=== PATIENT | female | born 1960 | race Caucasian/White ===

== ENCOUNTER → 2017-06-24 | Outpatient (CLI) | payer BC ==
[~2017-06-24] MED LIST: ESCI10TA17 PO; LEVO50TA6 PO; NIAC500T11 PO; SIMV20TA5 PO; VALA500T60 PO
--- NOTE | 2017-06-25 07:54 | MAMMOGRAPHY REPORT ---
BILATERAL DIGITAL SCREENING MAMMOGRAM TOMOSYNTHESIS WITH CAD: 06/24/2017 CLINICAL HISTORY: Routine screening. Patient has no complaints. TECHNIQUE: Breast tomosynthesis in addition to standard 2D mammography was performed. Current study was also evaluated with a Computer Aided Detection (CAD) system. COMPARISON: Comparison is made to exams dated: 06/21/2016 mammogram, 05/25/2015 mammogram, 05/18/2014 m ammogram, 05/08/2013 mammogram, 10/09/2012 mammogram, and 05/09/2012 ultrasound - [facility] enter. BREAST COMPOSITION: The tissue of both breasts is almost entirely fatty. FINDINGS: The parenchymal pattern is unchanged. No developing mass, architectural distortion or clus ter of suspicious microcalcifications is seen in either breast. IMPRESSION: ACR BI-RADS CATEGORY 2: BENIGN There is no mammographic evidence of malignancy. A 1 year screening mammogram is recommended. The pa tient will receive written notification of the results. Approximately 10% of breast cancers are not detected with mammography. A negative mammographic report should not delay biopsy if a clinically suggestive mass is present. Annita Meza M.D. ay/:06/24/2017 16:58:02 Piping Engineer: Lydia PAGE(Kylie)(Liane), [facility] letter sent: Normal 1/2 BI-RADS Code: ACR BI-RADS Category 2: Benign
== END | disposition home or self-care (01) ==
LOC: C.MAMM 07:42
PROVIDERS: ATTEND Family Medicine
DX: Z12.31 Encounter for screening mammogram for malignant neoplasm of breast (principal)

== ENCOUNTER → 2017-10-21 | Outpatient (CLI) | payer OTHER | END | disposition home or self-care (01) | LOC: C.PATHSPEC 16:34 | PROVIDERS: ATTEND Dermatology | DX: L82.1 Other seborrheic keratosis (principal) ==

== ENCOUNTER → 2018-02-03 | Outpatient (CLI) | payer OTHER ==
--- NOTE | 2018-02-03 15:45 | DIAGNOSTIC IMAGING REPORT ---
L-SPINE MIN 4 VIEWS ROUTINE CLINICAL HISTORY: 57 years-old Female presenting with LIFTING INJURY. TECHNIQUE: Frontal, bilateral oblique, lateral, and coned in lateral views lumbar spine were obtained. COMPARISON: None. FINDINGS: No scoliosis. Normal lumbar lordosis. Vertebral bodies maintain normal height and alignment. Intervertebral disc heights preserved. Minimal degenerative change. No osseous neural foraminal narrowing. No compression deformity or subluxation. No pars defect. Moderate stool burden. IMPRESSION: 1. No acute osseous injury of the lumbar spine. 2. Minimal degenerative changes of the lumbar spine. No radiographic evidence of osseous neural foraminal narrowing. Electronically signed by: Jas Trevino M.D. 02/03/2018 3:44 PM Dictated Date/Time: 02/03/2018 3:42 PM
== END | disposition home or self-care (01) ==
LOC: C.RAD1850 15:12
PROVIDERS: ATTEND Nurse Practitioner Adult Health
DX: M54.5 Low back pain (principal); X50.0XXA Overexertion from strenuous movement or load, initial encounter; Y93.B3 Activity, free weights

== ENCOUNTER 2024-02-09 20:52 | Inpatient (IN) ==
--- OUTSIDE RECORDS SUMMARY | 2024-02-09 20:57 | External Medical Summary | Summary of Care ---
Author Name Unknown Organization [facility] Address [address] [place] [address] Phone [phone] Care Team Providers Care Private Client Advisor Name Role Phone Amie Barba Primary Care Provider Reason for Visit * Reason Comments Follow Up Right knee Encounter Details Date Type Department Care Team (Late st Contact Info) Description 11/21/2023 9:00 AM EST Office Visit Orthopaedics [facility] [address] [facility] [place] [address] Tenzin Medeiros PA-C [address] [place] [address] [place] [address] Primary osteoarthritis of right knee* Allergies No known active allergiesdocumented as of this encounter (statuses as of 11/21/2023) Medications Medication Sig Dispensed Refills Start Date End Date Status NIACIN 500 MG PO TABSIndications:Mixed dyslipidemia One pill by mouth two times a day 180 Tab 3 1 Active OMEGA-3 FISH OIL 1000 MG PO CAPSIndications:Dyslipide priscila, goal to be determined Take one capsule by mouth twice a day 60 Cap 5 3 Active Multiple Vitamins-Calcium (ONE-A-DAY WOMENS FORMULA) Tablet Take 1 Tablet by mouth in the morning. 0 Active buPROPion HCl ER (XL) 150 MG Oral Tablet Extended Release 24 Hour (Wellbutrin XL)Indications:EDSON (generalized anxiety disorder) Take 1 Tablet by mouth in the morning. 90 Tablet 3 3 Active Premarin 0.625 MG/GM Vaginal Cream (Estrogens Conjugated) Administer into the vagina at bedtime. As directed. 42.5 g 5 3 Active Ibuprofen 600 MG Oral Tablet (Motrin) take 1 tablet by mouth three times a day 30 Tablet 1 3 Active valACYclovir HCl 500 MG Oral Tablet (Valtrex)Indications:HSV infection Take 1 Tablet by mouth in the morning. 90 Tablet 3 3 Active Levothyroxine Sodium 88 MCG Oral Tablet (Levoxyl)Indications:Acqu ired hypothyroidism TAKE 1 TABLET DAILY SIX DAYS A WEEK AND TAKE 2 TABLETS DAILY ONE DAY A WEEK AT LEAST 30 MINUTES PRIOR TO BREAKFAST OR OTHER MEDICATIONS 96 Tablet 3 4 Active Escitalopram Oxalate 10 MG Oral Tablet (Lexapro)Indications:EDSON (generalized anxiety disorder) TAKE 1 TABLET IN THE MORNING 90 Tablet 3 4 Active rOPINIRole HCl 0.25 MG Oral Tablet (Requip)Indications:Restl ess legs syndrome (RLS) TAKE 1 TO 2 TABLETS AT BEDTIME FOR RESTLESS LEG SYNDROME, PLMD 180 Tablet 3 4 Active Atorvastatin Calcium 40 MG Oral Tablet (Lipitor)Indications:Pure hypercholesterolemia TAKE 1 TABLET IN THE MORNING 90 Tablet 3 4 Active documented as of this encounter (statuses as of 11/21/2023) Active Problems Problem Noted Date Diagnosed Date Primary osteoarthritis of fi rst carpometacarpal joint of left hand 08/28/2023 EDSON (generalized anxiety disorder) 06/26/2021 Pure hypercholesterolemia 06/26/2021 Ruptured Bakers cyst 06/23/2019 Lumbar disc herniation 06/23/2019 S/P cervical spinal fusion 06/16/2018 Acquired hypothyroidism 06/07/2017 Chronic rhinitis 04/11/2017 EMILIE (obstructive sleep apnea) 08/17/2016 High triglycerides 04/21/2009 Esophageal reflux 09/07/2008 Migraine 01/16/2005 documented as of this encounter (statuses as of 11/21/2023) Resolved Problems Problem Noted Date Diagnosed Date Resolved Date Viral pharyngitis 04/11/2017 04/09/2018 Dyslipidemia, goal to be determined 09/15/2009 10/13/2013 Overview: Per Lipid Taxonomy. HYPOTHYROIDISM NOS 07/14/2009 6 Mixed dyslipidemia 04/21/2009 9 Overview: Per Lipid Taxonomy. ADVANCE DIRECTIVE INFORMATION 08/19/2006 06/16/2018 Overview: No, Advance Directive brochure given to patient at prior appointment. documented as of this encounter (statuses as of 11/21/2023) Immunizations Name Administration Dates Next Due COVID-19 mRNA, LNP-s, No Pre serve, 2-Dose Series (Moderna) 08/20/2021,01/11/2021,12/14/2020 Covid-19, Mrna, Lnp-s, Pf, B ivalent, 30 Mcg, IM, 12 yrs and above (Pfizer) 08/18/2022 H1N1 2009 Influenza, IM 09/13/2009 PPD 05/17/2010 Seasonal Influenza, PF, 6 M & above, IM , (FluLaval or Fluzone) 06/24/2020,07/22/2019,06/16/2018 Seasonal Influenza, Quadriva lent, No Preserve, IM 07/14/2016 Seasonal Influenza, Split, I IV3, With Preserve, Inj 07/24/2014,10/15/2013,07/09/2012,2010,2010,07/07/2009,09/07/2008 TD, Preservative Free 07/22/2019 TDAP (age 11 and older)(Adacel) 09/07/2008 documented as of this encounter Social History Tobacco Use Types Packs/Day Years Used Date Smoking Tobacco: Never Smokeless Tobacco: Never Alcohol Use Standard Drinks/Week Comments Yes 0 (1 standard drink = 0.6 oz pur e alcohol) Rare PHQ-2 Answer Date Recorded PHQ Adult Total Score 0 07/02/2022 Sex and Gender Information Value Date Recorded Sex Assigned at Not on file Gender Identity Not on file Sexual Orientation Not on file Job Start Date Occupation Industry Not on file Not on file Not on file documented as of this encounter Progress Notes * Tenzin Medeiros PA-C - 11/21/2023 9:39 AM EST ORTHOPAEDIC SURGERY - Clinic Note SUBJECTIVE: Rosalie Newsome is a 63 year old female. Chief Complaint Patient presents with Follow Up Right knee HPI: Rosalie is a very pleasant 63-year-old female who presents to the clinic today for 2 month follow-up roughly 2 months removed from completion of viscosupplementation series for the right knee for treatment of her primary osteoarthritis. Today she reports that she has no pain today in the rightknee, but states that overall she has not seen significant relief following her Euflexxa series. She reports that her pain is consistent with her previous, and that she continues to feel crunching and clicking in her knee with motion. She reports that pain is exacerbated by raising from a sitting position and traverse all of stairs. Other orthopedic complaints at this time. Review of Systems: Constitutional ROS: No fevers, sweats, or chills Cardiovascular ROS: No chest pain Respiratory ROS: No breathing difficulty Gastrointestinal ROS: No abdominal pain Musculoskeletal/Extremities ROS: No pain today Neurologic ROS: No numbness or tingling Review of patient's allergies indicates: No Known Allergies Current Outpatient Medications Medication Sig Dispense Refill NIACIN 500 MG PO TABS One pill by mouth two times a day 180 Tab 3 OMEGA-3 FISH OIL 1000 MG PO CAPS Take one capsule by mouth twice a day 60 Cap 5 Multiple Vitamins-Calcium (ONE-A-DAY WOMENS FORMULA) Tablet Take 1 Tablet by mouth in the morning. buPROPion HCl ER (XL) 150 MG Oral Tablet Extended Release 24 Hour (Wellbutrin XL) Take 1 Tablet by mouth in the morning. 90 Tablet 3 Premarin 0.625 MG/GM Vaginal Cream (Estrogens Conjugated) Administer into the vagina at bedtime. Asdirected. 42.5 g 5 Ibuprofen 600 MG Oral Tablet (Motrin) take 1 tablet by mouth three times a day 30 Tablet 1 valACYclovir HCl 500 MG Oral Tablet (Valtrex) Take 1 Tablet by mouth in the morning. 90 Tablet 3 Levothyroxine Sodium 88 MCG Oral Tablet (Levoxyl) TAKE 1 TABLET DAILY SIX DAYS A WEEK AND TAKE 2 TABLETS DAILY ONE DAY A WEEK AT LEAST 30 MINUTES PRIOR TO BREAKFAST OR OTHER MEDICATIONS 96 Tablet 3 Escitalopram Oxalate 10 MG Oral Tablet (Lexapro) TAKE 1 TABLET IN THE MORNING 90 Tablet 3 rOPINIRole HCl 0.25 MG Oral Tablet (Requip) TAKE 1 TO 2 TABLETS AT BEDTIME FOR RESTLESS LEG SYNDROME, PLMD 180 Tablet 3 Atorvastatin Calcium 40 MG Oral Tablet (Lipitor) TAKE 1 TABLET IN THE MORNING 90 Tablet 3 No current facility-administered medications for this visit. Patient Active Problem List Diagnosis Code Migraine G43.909 Esophageal reflux K21.9 High triglycerides E78.1 EMILIE (obstructive sleep apnea) G47.33 Chronic rhinitis J31.0 Acquired hypothyroidism E03.9 S/P cervical spinal fusion Z98.1 Ruptured Bakers cyst M66.0 Lumbar disc herniation M51.26 EDSON (generalized anxiety disorder) F41.1 Pure hypercholesterolemia E78.00 Primary osteoarthritis of first carpometacarpal joint of left hand M18.12 Past Medical History: Diagnosis Date Esophageal reflux 09/07/2008 mild esophageal Hypothyroidism Past Surgical History: Procedure Laterality Date CARPAL TUNNEL SURGERY Right COLONOSCOPY, DIAGNOSTIC (RECTUM) 02/26/2019 biopsies show hyperplastic polyps/recall 10 years/COLONOSCOPY FLEXIBLE PROXIMAL DIAGNOSTIC performed by Linda Orellana MD at [facility] EGD, FLEXIBLE, W/BIOPSY 09/20/2008 mild esophageal reflux INFORMATION tendon surgery left foot. KNEE ARTHROSCOPY/MENISCECTOMY Left 06/14/2020 MAMMOGRAM - 1 BREAST 04/24/2007 birad 2 right MAMMOGRAM - BILATERAL 10/22/2006 5mm nodule r 6 o'clock 6 mo f/u 04/22/07 OTHER 1992 Cervical fusion for bulging C5, Done in [facility] RMV LSN SCALP/NCK/EXT 3.1-4.0 N/A 05/11/2020 [facility]- precancer TENDON SHEATH INCISION, FINGER Right trigger finger Social History Tobacco Use Smoking status: Never Smokeless tobacco: Never Vaping Use Vaping Use: Never used Substance Use Topics Alcohol use: Yes Comment: Rare Drug use: No Family history: Noncontributory OBJECTIVE: Diagnostic Testing: None today Vital Signs: LMP 09/19/2010 Physical Exam: General: Alert and oriented x3 female, in no acute distress, appears currently stated age, appears well nourished, and converses appropriately. Psych: Mood and affect pleasant, cooperative, and without any positive/concerning findings. HEENT: Head is atraumatic, normocephalic, eyes are equal and round and without appreciated scleral injection, oral and nasal cavities are patent without obvious exudate. Respiratory: Patient's breathing is unlabored. Skin: Generally pink, warm and dry without gross visible diaphoresis, rash, erythema, ecchymosis, breakdown, or visible trauma. Musculoskeletal: Examination of the right knee reveals no deformity, erythema, ecchymosis, soft tissue swelling, or palpable effusion. There is tenderness to palpation over the lateral and medial patellofemoral articulations as well as the medial joint line to a lesser degree. She is able to demonstrate a straight leg raise and range the knee fully with noted patellofemoral crepitus. Collateral stability is intact. Calf is supple and nontender. She is distally neurovascularly intact with appropriate sensation to light touch, palpable pulses, and brisk cap refill. Distal motor function is intact include strong great toe dorsiflexion. Gait assessment is nonantalgic. ASSESSMENT: There are no diagnoses linked to this encounter. PLAN: Patient's right knee pain, previously employed treatments, failure there of, treatment options moving forward, exam, and recommendations were discussed with her in the office today. We did have a lengthy discussion in the office today with regard to Iovera nerve ablation and the potential benefit for patient given her previous failures of other conservative measures to include formal physical therapy, steroid injection, and viscosupplementation. At this point, she is possibly interested in pursuing Iovera, but will continue to monitor symptoms over the course of the next month for improvementand contact the office for Iovera scheduling should she decide to proceed. Patient was certainly urged to contact clinic in the interim with any questions, concerns, or worsening of symptoms. Patientis comfortable with the plan, and all questions were answered. This chart was completed in part utilizing [employer] Speech Voice Recognition Software. Grammatical errors, random word insertions, pronoun errors, and incomplete sentences are an occasional consequence of this system due to software limitations, ambient noise, and hardware issues. Any formal questions or concerns about the content, text, or information contained within the body of this dictation should be directly addressed to the provider for clarification. Tenzin Medeiros PA-C 11/21/2023 9:39 AM documented in this encounter Nursing Notes * Janice Wyatt, RN - 11/21/2023 9:13 AM EST Pt presents today for f/u right knee pain. Denies pain today. Last Euflexxa series completed on 09/17/23. Right knee remains to click and crunch. Janice Wyatt RN documented in this encounter Plan of Treatment Upcoming Encounters Date Type Department Care Team (Late st Contact Info) Description 07/03/2024 10:00 AM EDT Office Visit Family Practice [facility] [address] [facility] [place] [address] Amie Barba, [address] [facility] [place] [address] 08/12/2025 3:00 PM EST Office [address] [address] Elly Tomas, PA-Jyotsna [address] [place] [address] [place] [address] Scheduled Procedures Name Priority Associated Diagnoses Date/Ti me COLONOSCOPY FLEXIBLE PROXIMA L DIAGNOSTIC Recall Encounter for screening colonoscopy Health Maintenance Due Date Last Done Comments Cologuard 2005 Sigmoidoscopy 2005 Fecal Occult Blood Test 06/01/2009 06/01/2008 COVID-19 Vaccine ( season) 2023 08/18/2022, 08/20/2021, 01/11/2021, Additional history exists Influenza Vaccine (FLU shot) (#1) 2023 06/24/2020, 06/24/2020, 07/22/2019, Additional history exists Depression Screening 07/02/2023 07/02/2022 TSH 07/26/2024 07/26/2023, 06/01, 06/20/2021, Additional history exists Mammogram 07/30/2024 07/30/2023, 07/01, 07/11/2021, Additional history exists DXA Scan 07/30/2025 07/30/2018 Pap Smear 10/22/2025 10/22/2022, 06/01, 06/13/2016, Additional history exists Diabetes Screening 07/26/2026 07/26/2023, 0 06/21/2022, 06/20/2021, Additional history exists Lipid Panel 06/21/2027 06/21/2022, 06/01, 04/29/2020, Additional history exists Cervical Cancer Screening 10/22/2027 HPV/Co-Test 10/22/2027 10/22/2022 Colonoscopy 02/26/2029 02/26/2019, 01/30, 08/03/2008 Colorectal Cancer Screening 02/26/2029 DTaP,Tdap,and Td Vaccines (3 - Td or Tdap) 07/22/2029 07/22/2019, 09/07/2008 Zoster Vaccines Completed 06/05/2022, 02/25/2022 GARDASIL-HPV IMMUNIZATION SERIES Aged Out No longer eligible based on patient's age to complete this topic HIV Screening Discontinued Hepatitis B Aged Out No longer eligi ble based on patient's age to complete this topic Hepatitis C Screening Discontinued MENINGOCOCCAL (MENACTRA/MENVEO) Aged Out No longer eligible based on patient's age to complete this topic Pneumococcal Vaccine: Pediatrics (0 to 5 Years) and At-Risk Patients (6 to 64 Years) Aged Out No longer eligible based on patient's age to complete this topic documented as of this encounter Medical Devices Not on filedocumented as of this encounter Visit Diagnoses Diagnosis Primary osteoarthritis of right knee- Primary Primary localized osteoarthrosis, lower leg documented in this encounter Care Teams Private Client Advisor Relationship Specialty Start Date End Date Amie Barba DO [address] [place] [address] PCP - General Family Medicine 12/09/18 documented as of this encounter
--- OUTSIDE RECORDS SUMMARY | 2024-02-09 20:57 | External Medical Summary | Summary of Care ---
Author Name Unknown Organization [facility] Address [address] [place] [address] Phone [phone] Care Team Providers Care Dialysis Registered Nurse Name Role Phone Amie Barba DO Primary Care Provider Reason for Visit * Reason Comments eRx-Medication Refill Encounter Details Date Type Department Care Team (Late st Contact Info) Description 09/30/2023 Refill Family Practice [facility] [address] [facility] [place] [address] Amie Barba DO [address] [facility] [place] [address] Acquired hypothyroidism Allergies No known active allergiesdocumented as of this encounter (statuses as of 10/02/2023) Medications Medication Sig Dispensed Refills Start Date End Date Status NIACIN 500 MG PO TABSIndications:Mixed dyslipidemia One pill by mouth two times a day 180 Tab 3 10/05/19 11 Active OMEGA-3 FISH OIL 1000 MG PO CAPSIndications:Dyslipi demia, goal to be determined Take one capsule by mouth twice a day 60 Cap 5 10/14/19 13 Active Multiple Vitamins-Calcium (ONE-A-DAY WOMENS FORMULA) Tablet Take 1 Tablet by mouth in the morning. 0 Active Atorvastatin Calcium 40 MG Oral Tablet (Lipitor)Indications:Pu re hypercholesterolemia Take 1 Tablet by mouth in the morning. 90 Tablet 3 10/22/19 Active rOPINIRole HCl 0.25 MG Oral Tablet (Requip)Indications:Res tless legs syndrome (RLS) Take 1-2 tablets by mouth at bedtime for RLS/PLMD 180 Tablet 3 10/22/19 Active buPROPion HCl ER (XL) 150 MG Oral Tablet Extended Release 24 Hour (Wellbutrin XL)Indications:EDSON (generalized anxiety disorder) Take 1 Tablet by mouth in the morning. 90 Tablet 3 10/22/19 Active Escitalopram Oxalate 10 MG Oral Tablet (Lexapro)Indications:GA D (generalized anxiety disorder) Take 1 Tablet by mouth in the morning. 90 Tablet 3 10/22/19 Active Premarin 0.625 MG/GM Vaginal Cream (Estrogens Conjugated) Administer into the vagina at bedtime. As directed. 42.5 g 5 10/24/19 Active Ibuprofen 600 MG Oral Tablet (Motrin) take 1 tablet by mouth three times a day 30 Tablet 1 06/24/20 Active valACYclovir HCl 500 MG Oral Tablet (Valtrex)Indications:HS V infection Take 1 Tablet by mouth in the morning. 90 Tablet 3 07/29/20 Active Levothyroxine Sodium 88 MCG Oral Tablet (Levoxyl)Indications:Ac quired hypothyroidism TAKE 1 TABLET DAILY SIX DAYS A WEEK AND TAKE 2 TABLETS DAILY ONE DAY A WEEK AT LEAST 30 MINUTES PRIOR TO BREAKFAST OR OTHER MEDICATIONS 96 Tablet 3 10/02/19 Active Levothyroxine Sodium 88 MCG Oral Tablet (Levoxyl)Indications:Ac quired hypothyroidism Take 1 tablet daily six days a week and take 2 tablets daily one day a week.(at least 30 min prior to breakfast or other meds) 96 Tablet 3 10/22/19 23 024 Discontinued documented as of this encounter (statuses as of 10/02/2023) Active Problems Problem Noted Date Diagnosed Date [...] as of this encounter (statuses as of 10/02/2023) Resolved Problems Problem Noted Date Diagnosed Date Resolved Date Viral pharyngitis 04/11/2017 04/09/2018 Dyslipidemia, goal to be determined 09/15/2009 10/13/2013 Overview: Per Lipid Taxonomy. HYPOTHYROIDISM NOS 07/14/2009 6 Mixed dyslipidemia 04/21/2009 9 Overview: Per Lipid Taxonomy. ADVANCE DIRECTIVE INFORMATION 08/19/2006 06/16/2018 Overview: No, Advance Directive brochure given to patient at prior appointment. documented as of this encounter (statuses as of 10/02/2023) Immunizations Name Administration Dates Next Due COVID-19 [...] on file documented as of this encounter Miscellaneous Notes * Telephone Encounter - Brodie Mohamud [facility] - 10/02/2023 11:00 AM ESTSigned Prescriptions: Disp Refills Levothyroxine Sodium 88 MCG Oral Tablet (L*96 Tab*3 Sig: TAKE 1 TABLET DAILY SIX DAYS A WEEK AND TAKE 2 TABLETS DAILY ONE DAY A WEEK AT LEAST 30 MINUTES PRIOR TO BREAKFAST OR OTHER MEDICATIONSAuthorizing Provider: AMIE BARBAOrderdeanna User: BRODIE MOHAMUD documented in this encounter Plan of Treatment Upcoming Encounters Date Type Department Care Team (Late st Contact Info) Description 11/21/2023 9:00 AM EST Office Visit Orthopaedics [facility] [address] [facility] [place] [address] Tenzin Medeiros PA-C [address] [place] [address] 07/03/2024 10:00 AM EDT Office Visit Family Practice [facility] [address] [facility] [place] [address] Amie Barba, DO [address] [facility] [place] [address] 08/12/2025 3:00 PM EST Office [address] [address] Elly Tomas PA-C [address] [place] [address] [place] [address] Scheduled Procedures Name Priority Associated Diagnoses Date/Ti [...] as of this encounter Visit Diagnoses Diagnosis Acquired hypothyroidism Unspecified hypothyroidism documented in this encounter Care Teams Dialysis Registered Nurse Relationship Specialty Start Date End Date Amie Barba DO [address] [place] [address] PCP - General Family Medicine 12/09/18 documented as of this encounter
--- OUTSIDE RECORDS SUMMARY | 2024-02-09 20:57 | External Medical Summary | Summary of Care ---
Author Name Unknown Organization [facility] Address [address] [place] [address] Phone [phone] Care Team Providers Care Surgical Product Sales Consultant Name Role Phone Amie Barba DO Primary Care Provider Encounter Details Date Type Department Care Team (Late st Contact Info) Description 01/03/2024 Telephone Family Practice [facility] [address] [facility] [address] [facility] [address] [facility] [id number] Allergies No known active allergiesdocumented as of this encounter (statuses as of 01/03/2024) Medications Medication Sig Dispensed Refills Start Date End Date Status NIACIN 500 MG PO TABSIndications:Mixed dyslipidemia One pill by mouth two times a day 180 Tab 3 1 Active OMEGA-3 FISH OIL 1000 MG PO CAPSIndications:Dyslipid emia, goal to be determined Take one capsule [...] Active Levothyroxine Sodium 88 MCG Oral Tablet (Levoxyl)Indications:Acq uired hypothyroidism TAKE 1 TABLET DAILY SIX DAYS A WEEK AND TAKE 2 TABLETS DAILY ONE DAY A WEEK AT LEAST 30 MINUTES PRIOR TO BREAKFAST OR OTHER MEDICATIONS 96 Tablet 3 4 Active Escitalopram Oxalate 10 MG Oral Tablet (Lexapro)Indications:EDSON (generalized anxiety disorder) TAKE 1 TABLET IN THE MORNING 90 Tablet 3 4 Active rOPINIRole HCl 0.25 MG Oral Tablet (Requip)Indications:Rest less legs syndrome (RLS) TAKE 1 TO 2 TABLETS AT BEDTIME FOR RESTLESS LEG SYNDROME, PLMD 180 Tablet 3 4 Active Atorvastatin Calcium 40 MG Oral Tablet (Lipitor)Indications:Pur e hypercholesterolemia TAKE 1 TABLET IN THE MORNING 90 Tablet 3 4 Active Nirmatrelvir&Ritonavir 300/100 20 x 150 MG & 10 x 100MG Oral Tablet Therapy Pack (Paxlovid)Indications:CO VID-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 30 Tablet 0 4 Active documented as of this encounter (statuses as of 01/03/2024) Active Problems Problem Noted Date Diagnosed Date [...] as of this encounter (statuses as of 01/03/2024) Resolved Problems Problem Noted Date Diagnosed Date Resolved Date Viral pharyngitis 04/11/2017 04/09/2018 Dyslipidemia, goal to be determined 09/15/2009 10/13/2013 Overview: Per Lipid Taxonomy. HYPOTHYROIDISM NOS 07/14/2009 6 Mixed dyslipidemia 04/21/2009 9 Overview: Per Lipid Taxonomy. ADVANCE DIRECTIVE INFORMATION 08/19/2006 06/16/2018 Overview: No, Advance Directive brochure given to patient at prior appointment. documented as of this encounter (statuses as of 01/03/2024) Immunizations Name Administration Dates Next Due COVID-19 [...] encounter Miscellaneous Notes * Telephone Encounter - Emily Preston CRNP - 01/03/2024 2:48 PM EDT Signed - thank you. * Telephone Encounter - Priya Garcia LPN - 01/03/2024 1:53 PM EDT Patient has OV this afternoon with Emily. Patient called in to report she tested positive on shannan home test. Patient reports sx started yesterday 01/01. Headache, body aches, sore throat, ear pain, cough, Low grade fever 100-100.4. Pain in back ribs when coughing. Denies shortness of breath. Gave typically covid rec's. Patient interested in Paxlovid. Please send to [facility]-patient aware to hold Atorvastatin while taking Paxlovid and will resume after completed.. documented in this encounter Plan of Treatment Upcoming Encounters Date Type Department Care Team (Late st Contact Info) Description 01/03/2024 3:40 PM EDT Office Visit Family [facility] [address] [place] [address] Emily Preston CRNP [address] [place] [address] 07/03/2024 10:00 AM EDT Office Visit [facility] [address] [place] [address] Amie Barba DO [address] [place] [address] 08/12/2025 3:00 PM EST Office Visit [facility] [address] [place] [address] Elly Tomas PA-C [address] [place] [address] [place] [address] Scheduled Procedures Name Priority Associated Diagnoses Date/Ti me COLONOSCOPY FLEXIBLE PROXIMA L DIAGNOSTIC Recall Encounter for screening colonoscopy Health Maintenance Due Date Last Done Comments Cologuard 2005 Sigmoidoscopy 2005 Fecal Occult Blood Test 06/01/2009 06/01/2008 COVID-19 Vaccine ( season) 2023 08/18/2022, 08/20/2021, 01/11/2021, Additional history exists Depression Screening 07/02/2023 07/02/2022 Influenza Vaccine (FLU shot) (Season Ended) 2024 06/24/2020, 06/24/2020, 07/22/2019, Additional history exists TSH 07/26/2024 07/26/2023, 06/01, 06/20/2021, Additional history [...] as of this encounter Visit Diagnoses Diagnosis COVID-19 virus infection- Primary documented in this encounter Care Teams Surgical Product Sales Consultant Relationship Specialty Start Date End Date Amie Barba DO [address] [place] [address] PCP - General Family Medicine 12/09/18 documented as of this encounter
--- OUTSIDE RECORDS SUMMARY | 2024-02-09 20:57 | External Medical Summary | Summary of Care ---
Author Name Unknown Organization [facility] Address [address] [place] [address] Phone [phone] Care Team Providers Care Guidance Services Coordinator Name Role Phone Amie Barba DO Primary Care Provider Reason for Visit * Reason Onset Date Comments Health Maintenance 10/30/2023 Encounter Details Date Type Department Care Team (Late st Contact Info) Description 10/30/2023 Telephone Family Practice [facility] [address] [facility] [place] [address] Amie Barba DO [address] [facility] [place] [address] Health Maintenance Allergies No known active allergiesdocumented as of this encounter (statuses as of 10/30/2023) Medications Medication Sig Dispensed Refills Start Date [...] as of this encounter (statuses as of 10/30/2023) Active Problems Problem Noted Date Diagnosed Date [...] as of this encounter (statuses as of 10/30/2023) Resolved Problems Problem Noted Date Diagnosed Date Resolved Date Viral pharyngitis 04/11/2017 04/09/2018 Dyslipidemia, goal to be determined 09/15/2009 10/13/2013 Overview: Per Lipid Taxonomy. HYPOTHYROIDISM NOS 07/14/2009 6 Mixed dyslipidemia 04/21/2009 9 Overview: Per Lipid Taxonomy. ADVANCE DIRECTIVE INFORMATION 08/19/2006 06/16/2018 Overview: No, Advance Directive brochure given to patient at prior appointment. documented as of this encounter (statuses as of 10/30/2023) Immunizations Name Administration Dates Next Due COVID-19 [...] encounter Miscellaneous Notes * Telephone Encounter - Reva Hurt LPN - 10/30/2023 12:07 PM EST Care Gaps Comprehensive Care Outreach Last Office/Telemedicine Visit: 07/29/2023 (in office), Visit date not found (telemedicine) Next Office Visit: 07/03/2024 Hemoglobin AIC Results: No results found for: "HEMOGLOBIN A1C" BP Readings from Last 1 Encounters: 08/20/23 110/60 Reviewed Health Maintenance below: Health Maintenance Topic Date Due Influenza Vaccine (FLU shot) (1) 05/31/2023 COVID-19 Vaccine ( season) 2023 Depression Screening 07/02/2023 TSH 07/26/2024 Mammogram 07/30/2024 Mamm [facility] already ordered Care Gap Outreach Action Taken: Outreach not indicated documented in this encounter Plan of Treatment Upcoming Encounters Date Type Department Care Team (Late st Contact Info) Description 11/21/2023 9:00 AM EST Office Visit Orthopaedics [facility] [address] [facility] [place] [address] Tenzin Medeiros PA-C [address] [place] [address] [place] [address] 07/03/2024 10:00 AM EDT Office Visit Family Practice [facility] [address] [facility] [place] [address] Amie Barba, [address] [facility] [place] [address] 08/12/2025 3:00 PM EST Office [address] [address] Elly Tomas PA-C [address] [place] [address] [place] [address] Scheduled Procedures Name Priority Associated Diagnoses Date/Ti [...] Not on filedocumented as of this encounter Care Teams Guidance Services Coordinator Relationship Specialty Start Date End Date Amie Barba DO [address] [place] [address] PCP - General Family Medicine 12/09/18 documented as of this encounter
--- OUTSIDE RECORDS SUMMARY | 2024-02-09 20:57 | External Medical Summary | Summary of Care ---
Author Name Unknown Organization [facility] Address [address] [place] [address] Phone [phone] Care Team Providers Care Professor Of Industrial Technology Name Role Phone Gurdeep Barba DO Primary Care Provider Reason for Visit * Reason Comments eRx-Medication Refill Encounter Details Date Type Department Care Team (Late st Contact Info) Description 10/18/2023 Refill Family Practice [facility] [address] [facility] [place] [address] Gurdeep Barba DO [address] [facility] [place] [address] EDSON (generalized anxiety disorder); Restless legs syndrome (RLS); Pure hypercholesterolemia Allergies No known active allergiesdocumented as of this encounter (statuses as of 10/19/2023) Medications Medication Sig Dispensed Refills Start Date [...] in the morning. 90 Tablet 3 10/22/19 23 Active Premarin 0.625 MG/GM Vaginal Cream (Estrogens Conjugated) Administer into the vagina at bedtime. As directed. 42.5 g 5 10/24/19 23 Active Ibuprofen 600 MG Oral Tablet (Motrin) take 1 tablet by mouth three times a day 30 Tablet 1 06/24/20 23 Active valACYclovir HCl 500 MG Oral Tablet (Valtrex)Indications:HS V infection Take 1 Tablet by mouth in the morning. 90 Tablet 3 07/29/20 23 Active Levothyroxine Sodium 88 MCG Oral Tablet (Levoxyl)Indications:Ac quired hypothyroidism TAKE 1 TABLET DAILY SIX DAYS A WEEK AND TAKE 2 TABLETS DAILY ONE DAY A WEEK AT LEAST 30 MINUTES PRIOR TO BREAKFAST OR OTHER MEDICATIONS 96 Tablet 3 10/02/19 24 Active Escitalopram Oxalate 10 MG Oral Tablet (Lexapro)Indications:GA D (generalized anxiety disorder) TAKE 1 TABLET IN THE MORNING 90 Tablet 3 10/18/19 24 Active rOPINIRole HCl 0.25 MG Oral Tablet (Requip)Indications:Res tless legs syndrome (RLS) TAKE 1 TO 2 TABLETS AT BEDTIME FOR RESTLESS LEG SYNDROME, PLMD 180 Tablet 3 10/19/19 24 Active Atorvastatin Calcium 40 MG Oral Tablet (Lipitor)Indications:Pu re hypercholesterolemia TAKE 1 TABLET IN THE MORNING 90 Tablet 3 10/18/19 24 Active Atorvastatin Calcium 40 MG Oral Tablet (Lipitor)Indications:Pu re hypercholesterolemia Take 1 Tablet by mouth in the morning. 90 Tablet 3 10/22/19 23 024 Discontinued rOPINIRole HCl 0.25 MG Oral Tablet (Requip)Indications:Res tless legs syndrome (RLS) Take 1-2 tablets by mouth at bedtime for RLS/PLMD 180 Tablet 3 10/22/19 23 024 Discontinued Escitalopram Oxalate 10 MG Oral Tablet (Lexapro)Indications:GA D (generalized anxiety disorder) Take 1 Tablet by mouth in the morning. 90 Tablet 3 10/22/19 23 024 Discontinued documented as of this encounter (statuses as of 10/19/2023) Active Problems Problem Noted Date Diagnosed Date [...] as of this encounter (statuses as of 10/19/2023) Resolved Problems Problem Noted Date Diagnosed Date Resolved Date Viral pharyngitis 04/11/2017 04/09/2018 Dyslipidemia, goal to be determined 09/15/2009 10/13/2013 Overview: Per Lipid Taxonomy. HYPOTHYROIDISM NOS 07/14/2009 6 Mixed dyslipidemia 04/21/2009 9 Overview: Per Lipid Taxonomy. ADVANCE DIRECTIVE INFORMATION 08/19/2006 06/16/2018 Overview: No, Advance Directive brochure given to patient at prior appointment. documented as of this encounter (statuses as of 10/19/2023) Immunizations Name Administration Dates Next Due COVID-19 [...] encounter Miscellaneous Notes * Telephone Encounter - Kaleigh Grimaldo PA-C - 10/19/2023 1:19 PM ESTSigned Prescriptions: Disp Refills Escitalopram Oxalate 10 MG Oral Tablet (Le*90 Tab*3 Sig: TAKE 1 TABLET IN THE MORNING Authorizing Provider: GURDEEP BARBA User: SHELBY ALVARES rOPINIRole HCl 0.25 MG Oral Tablet (Requip)180 Ta*3 Sig: TAKE 1 TO 2 TABLETS AT BEDTIME FOR RESTLESS LEG SYNDROME, PLMD Authorizing Provider: KALEIGH GRIMALDO torvastatin Calcium 40 MG Oral Tablet (Li*90 Tab*3 Sig: TAKE 1 TABLET IN THE MORNING Authorizing Provider: GURDEEP BARBA User: SHELBY ALVARES * Telephone Encounter - Shelby Alvares, [facility] - 10/18/2023 10:16 PM EST Pending Prescriptions: Disp Refills rOPINIRole HCl 0.25 MG Oral Tablet (Requip)180 Ta*3 Sig: TAKE 1 TO 2 TABLETS AT BEDTIME FOR RESTLESS LEG SYNDROME, PLMD Signed Prescriptions: Disp Refills Escitalopram Oxalate 10 MG Oral Tablet (Le*90 Tab*3 Sig: TAKE 1 TABLET IN THE MORNING Authorizing Provider: GURDEEP BARBA Ordering User: SHELBY IRAHETA Atorvastatin Calcium 40 MG Oral Tablet (Li*90 Tab*3 Sig: TAKE 1 TABLET IN THE MORNING Authorizing Provider: GURDEEP BARBA Ordering User: SHELBY ALVARES * Telephone Encounter - Shelby Alvares RPh - 10/18/2023 10:01 PM EST [facility] is currently not authorized to approve refills for the pended medication(s) per refill protocol. Please approve if appropriate. Thanks, Shelby Alvares, PharmD Clinical Pharmacist [facility] ([facility]) (formerly Telepharmacy) [phone] 10/18/2023,10:16 PM documented in this encounter Plan of Treatment Upcoming Encounters Date Type Department Care Team (Late st Contact Info) Description 11/21/2023 9:00 AM EST Office Visit Orthopaedics [facility] 132 [facility] [place] [address] Tenzin Medeiros PA-C [address] [place] [address] [place] [address] 07/03/2024 10:00 AM EDT Office [facility] [address] [place] [address] Gurdeep Barba DO [address] [facility] [place] [address] 08/12/2025 3:00 PM EST Office Visit Dermatology, [place] [address] [facility] [place] [address] Elly Tomas PA-C [address] [place] [address] [place] [address] Scheduled Procedures Name Priority Associated Diagnoses Date/Ti [...] as of this encounter Visit Diagnoses Diagnosis EDSON (generalized anxiety disorder) Generalized anxiety disorder Restless legs syndrome (RLS) Pure hypercholesterolemia documented in this encounter Care Teams Professor Of Industrial Technology Relationship Specialty Start Date End Date Gurdeep Barba DO [address] [place] [address] PCP - General Family Medicine 12/09/18 documented as of this encounter
--- OUTSIDE RECORDS SUMMARY | 2024-02-09 20:57 | External Medical Summary | Summary of Care ---
Author Name Unknown Organization [facility] Address [address] [place] [address] Phone [phone] Care Team Providers Care Weight Loss Sales Consultant Name Role Phone Amie Barbaberly Primary Care Provider Reason for Visit * Reason Onset Date Comments Apnea Follow-up 12/02/2023 9 Month PAP Comp liance Encounter Details Date Type Department Care Team (Late st Contact Info) Description 12/02/2023 Telephone Sleep Lab [facility] [address] [place] [address] Tomasz Patel, HEAD STOCK OPERATOR Apnea Follow-up (9 Month PAP Compliance ) Allergies No known active allergiesdocumented as of this encounter (statuses as of 12/02/2023) Medications Medication Sig Dispensed Refills Start Date [...] as of this encounter (statuses as of 12/02/2023) Active Problems Problem Noted Date Diagnosed Date [...] as of this encounter (statuses as of 12/02/2023) Resolved Problems Problem Noted Date Diagnosed Date Resolved Date Viral pharyngitis 04/11/2017 04/09/2018 Dyslipidemia, goal to be determined 09/15/2009 10/13/2013 Overview: Per Lipid Taxonomy. HYPOTHYROIDISM NOS 07/14/2009 6 Mixed dyslipidemia 04/21/2009 9 Overview: Per Lipid Taxonomy. ADVANCE DIRECTIVE INFORMATION 08/19/2006 06/16/2018 Overview: No, Advance Directive brochure given to patient at prior appointment. documented as of this encounter (statuses as of 12/02/2023) Immunizations Name Administration Dates Next Due COVID-19 [...] encounter Miscellaneous Notes * Telephone Encounter - Tomasz Patel, HEAD STOCK OPERATOR - 12/02/2023 6:59 AM EST AutoPAP COMPLIANCE: We have received a Good compliance download from [facility] on 12/02/2023. It showsa 97% of use over 4 hours from 11/01/2023 to 11/30/2023. Average AHI of 1.3 with minimal leak. The pressure at the 95th percentile is 12.4 cmH2O. This report will be scanned into the chart. documented in this encounter Plan of Treatment Upcoming Encounters Date Type Department Care Team (Late st Contact Info) Description 07/03/2024 10:00 AM EDT Office Visit Family Practice [facility] [place] [address] Amie Barba, [address] [facility] [place] [address] 08/12/2025 3:00 PM EST Office Visit [facility] [address] [place] [address] Elly Tomas PA-C [address] [place] [address] [place] [address] Scheduled Procedures Name Priority Associated Diagnoses Date/Ti [...] filedocumented as of this encounter Care Teams Weight Loss Sales Consultant Relationship Specialty Start Date End Date Amie Barba DO [address] [place] [address] PCP - General Family Medicine 12/09/18 documented as of this encounter
--- OUTSIDE RECORDS SUMMARY | 2024-02-09 20:58 | External Medical Summary | Summary of Care ---
Author Name Unknown Organization [facility] Address [address] [place] [address] Phone [phone] Care Team Providers Care Lean Leader Name Role Phone Amie Barba Primary Care Provider Reason for Visit * Reason Comments Follow Up Eufflexxa ## right k nee. Encounter Details Date Type Department Care Team (Late st Contact Info) Description 09/17/2023 10:00 AM EST Office Visit Orthopaedics, Mary Koch [address] [place] [address] Tenzin Medeiros PA-C [address] [place] [id number] Primary osteoarthritis of right knee* Allergies No known active allergiesdocumented as of this encounter (statuses as of 09/17/2023) Medications Medication Sig Dispensed Refills Start Date [...] Calcium 40 MG Oral Tablet (Lipitor)Indications:Pure hypercholesterolemia Take 1 Tablet by mouth in the morning. 90 Tablet 3 3 Active Levothyroxine Sodium 88 MCG Oral Tablet (Levoxyl)Indications:Acqu ired hypothyroidism Take 1 tablet daily six days a week and take 2 tablets daily one day a week.(at least 30 min prior to breakfast or other meds) 96 Tablet 3 3 Active rOPINIRole HCl 0.25 MG Oral Tablet (Requip)Indications:Restl ess legs syndrome (RLS) Take 1-2 tablets by mouth at bedtime for RLS/PLMD 180 Tablet 3 3 Active buPROPion HCl ER (XL) 150 MG Oral Tablet Extended Release 24 Hour (Wellbutrin XL)Indications:EDSON (generalized anxiety disorder) Take 1 Tablet by mouth in the morning. 90 Tablet 3 3 Active Escitalopram Oxalate 10 MG Oral Tablet (Lexapro)Indications:EDSON (generalized anxiety disorder) Take 1 Tablet by [...] the morning. 90 Tablet 3 3 Active Hospital, Clinic, or Other Facility Administered Medication Ordered Dose Route Frequency Start Date End Date Status Sodium Hyaluronate (Viscosup) (Euflexxa/Hyalgan) 20 MG/2ML inj 20 mgIndications:Primary osteoarthritis of right knee 20 mg IX ONCE 09/17/2023 09/17/2023 Ended documented as of this encounter (statuses as of 09/17/2023) Active Problems Problem Noted Date Diagnosed Date [...] as of this encounter (statuses as of 09/17/2023) Resolved Problems Problem Noted Date Diagnosed Date Resolved Date Viral pharyngitis 04/11/2017 04/09/2018 Dyslipidemia, goal to be determined 09/15/2009 10/13/2013 Overview: Per Lipid Taxonomy. HYPOTHYROIDISM NOS 07/14/2009 6 Mixed dyslipidemia 04/21/2009 9 Overview: Per Lipid Taxonomy. ADVANCE DIRECTIVE INFORMATION 08/19/2006 06/16/2018 Overview: No, Advance Directive brochure given to patient at prior appointment. documented as of this encounter (statuses as of 09/17/2023) Immunizations Name Administration Dates Next Due COVID-19 [...] on file documented as of this encounter Last Filed Vital Signs Vital Sign Reading Time Taken Comments Blood Pressure - - Pulse - - Temperature - - Respiratory Rate - - Oxygen Saturation - - Inhaled Oxygen Concentration - - Weight - - Height 162.6 cm (5' 4") 09/17/2023 9:54 AM EST Body Mass Index - - documented in this encounter Progress Notes * Tenzin Medeiros PA-C - 09/17/2023 9:58 AM EST ORTHOPAEDIC SURGERY - Clinic Note/Visco Injection SUBJECTIVE: Rosalie Newsome is a 62 year old female. Chief Complaint Patient presents with Follow Up Eufflexxa ## right knee. HPI: Rosalie is a very pleasant 62-year-old female who presents to the clinic today for repeat right knee Euflexxa injection. This will be her 3rd and final injection of her current series. She reports no discernible benefit following her 1st 2 injections. Review of patient's allergies indicates: No Known Allergies Current Outpatient Medications Medication Sig Dispense Refill NIACIN 500 MG PO TABS One pill by mouth two times a day 180 Tab 3 OMEGA-3 FISH OIL 1000 MG PO CAPS Take one capsule by mouth twice a day 60 Cap 5 Multiple Vitamins-Calcium (ONE-A-DAY WOMENS FORMULA) Tablet Take 1 Tablet by mouth in the morning. Atorvastatin Calcium 40 MG Oral Tablet (Lipitor) Take 1 Tablet by mouth in the morning. 90 Tablet 3 Levothyroxine Sodium 88 MCG Oral Tablet (Levoxyl) Take 1 tablet daily six days a week and take 2 tablets daily one day a week.(at least 30 min prior to breakfast or other meds) 96 Tablet 3 rOPINIRole HCl 0.25 MG Oral Tablet (Requip) Take 1-2 tablets by mouth at bedtime for RLS/PLMD 180 Tablet 3 buPROPion HCl ER (XL) 150 MG Oral Tablet Extended Release 24 Hour (Wellbutrin XL) Take 1 Tablet by mouth in the morning. 90 Tablet 3 Escitalopram Oxalate 10 MG Oral Tablet (Lexapro) Take 1 Tablet by mouth in the [...] mouth in the morning. 90 Tablet 3 Current Facility-Administered Medications Medication Dose Route Frequency Provider Last Rate Last Admin Sodium Hyaluronate (Viscosup) (Euflexxa/Hyalgan) 20 MG/2ML inj 20 mg 20 mg Intra-Articular Once Tenzin Medeiros PA-C ASSESSMENT: Primary osteoarthritis of right knee (Primary) - ARTHROCENT ASP &/OR INJ MAJOR JX/BURSA W/O US - Sodium Hyaluronate (Viscosup) (Euflexxa/Hyalgan) 20 MG/2ML inj 20 mg Follow Up: Return in about 2 months (around 11/18/2023) for Clinic Visit. | For: Clinic Visit PLAN: We will proceed with Euflexxa injection for the right knee. This was her 3rd and final injection ofthe current series, and was very well tolerated today. Patient was advised against significant physical activity today, but may resume activities as normal tomorrow. Patient may also utilize ice and elevation as needed for pain and swelling. I would like patient to follow up in roughly 2 months forclinical re-evaluation and determination of benefit with viscosupplementation. Iovera nerve ablation may be discussed at that time if symptoms persist. Patient was certainly urged to contact clinic in the interim with any questions, concerns, or worsening of symptoms. Patient is comfortable with the plan, and all questions were answered. Visco Injection Procedure Note: Right Knee: Time out: Prior to injection, a time out was called to confirm the administration of appropriate medicine, patient name, procedure and confirm to the best of our ability and knowledge the presence of any necessary risks and benefits. Patient verbalizes understanding. Consent obtained. Sterile techinique applied. Skin sterilized with alcohol swab and ChloraPrep. The right knee was injected using 1.5 inch, 22 gauge needle. Injected with Euflexxa viscosupplementation preparation. Skin cleansed with alcohol and Band- Aid placed. Patient tolerated procedure with no significant bleeding or adverse reaction. Patient instructed to call or return to clinic for fever or warmth and redness at injection site for potential infection. Patient also advised as to potential for increased pain and redness at injection site which should be treated with ice and resolve within 24 hours. This chart was completed in part utilizing [employer] Speech Voice Recognition Software. Grammatical errors, random word insertions, pronoun errors, and incomplete sentences are an occasional consequence of this system due to software limitations, ambient noise, and hardware issues. Any formal questions or concerns about the content, text, or information contained within the body of this dictation should be directly addressed to the provider for clarification. Tenzin Medeiros PA-C 09/17/2023 10:00 AM documented in this encounter Nursing Notes * Kristin Fernandez LPN - 09/17/2023 9:54 AM EST Chief Complaint Patient presents with Follow Up Eufflexxa ## right knee. documented in this encounter Plan of Treatment Upcoming Encounters Date Type Department Care Team (Late st Contact Info) Description 11/21/2023 9:00 AM EST Office Visit Orthopaedics [facility] [address] [facility] [place] [address] Tenzin Medeiros PA-C [address] [place] [address] 07/03/2024 10:00 AM EDT Office Visit [facility] [address] [facility] [place] [address] Amie Barba DO [address] [facility] [place] [address] 08/12/2025 3:00 PM EST Office Visit [address] [id number] Elly Tomas PA-C [address] [place] [address] [place] [address] Scheduled Orders Name Type Priority Associated Diagnoses Orde r Schedule ARTHROCENT ASP &/OR INJ MAJOR JX/BURSA W/O US Procedures Routine Primary osteoarthritis of right knee Ordered: 09/17/2023 Scheduled Procedures Name Priority Associated Diagnoses Date/Ti [...] osteoarthrosis, lower leg documented in this encounter Administered Medications Inactive Administered Medications - up to 3 most recent administrations Medication Order MAR Action Action Date Dose Rate Site Sodium Hyaluronate (Viscosup) (Euflexxa/Hyalgan) 20 MG/2ML inj 20 mg 20 mg, Intra-Articular, ONCE, On Tu09/17/23 at 1045, For 1 dose Given 09/17/2023 10:28 AM EST 20 mg Knee Right documented in this encounter Care Teams Lean Leader Relationship Specialty Start Date End Date Amie Barba DO [address] [place] [address] PCP - General Family Medicine 12/09/18 documented as of this encounter
--- OUTSIDE RECORDS SUMMARY | 2024-02-09 20:58 | External Medical Summary | Summary of Care ---
Author Name Unknown Organization [facility] Address [address] [place] [address] Phone [phone] Care Team Providers Care Supervisor Furnace Process Name Role Phone Freda Holloway Cheryl Primary Care Provider Encounter Details Date Type Department Care Team (Late st Contact Info) Description 08/08/2023 Telephone Orthopaedics [facility] [address] [place] [address] Rayray Frederick DO [address] [facility] [place] [address] Allergies No known active allergiesdocumented as of this encounter (statuses as of 08/26/2023) Medications Medication Sig Dispensed Refills Start Date [...] 40 MG Oral Tablet (Lipitor)Indications:Pur e hypercholesterolemia Take 1 Tablet by mouth in the morning. 90 Tablet 3 10/22/19 Active Levothyroxine Sodium 88 MCG Oral Tablet (Levoxyl)Indications:Acq uired hypothyroidism Take 1 tablet daily six days a week and take 2 tablets daily one day a week.(at least 30 min prior to breakfast or other meds) 96 Tablet 3 10/22/19 Active rOPINIRole HCl 0.25 MG Oral Tablet (Requip)Indications:Rest less legs syndrome (RLS) Take 1-2 tablets by [...] the morning. 90 Tablet 3 07/29/20 Active Cyclobenzaprine HCl 5 MG Oral Tablet (Flexeril) Take by mouth 1 Tablet as needed before bedtime for Muscle spasms. 30 Tablet 0 07/02/20 22 023 Discontinued documented as of this encounter (statuses as of 08/26/2023) Active Problems Problem Noted Date Diagnosed Date EDSON (generalized anxiety disorder) 06/26/2021 Pure hypercholesterolemia 06/26/2021 Ruptured Bakers cyst 06/23/2019 Lumbar disc herniation 06/23/2019 S/P cervical spinal fusion 06/16/2018 Acquired hypothyroidism 06/07/2017 Chronic rhinitis 04/11/2017 EMILIE (obstructive sleep apnea) 08/17/2016 High triglycerides 04/21/2009 Esophageal reflux 09/07/2008 Migraine 01/16/2005 documented as of this encounter (statuses as of 08/26/2023) Resolved Problems Problem Noted Date Diagnosed Date Resolved Date Viral pharyngitis 04/11/2017 04/09/2018 Dyslipidemia, goal to be determined 09/15/2009 10/13/2013 Overview: Per Lipid Taxonomy. HYPOTHYROIDISM NOS 07/14/2009 6 Mixed dyslipidemia 04/21/2009 9 Overview: Per Lipid Taxonomy. ADVANCE DIRECTIVE INFORMATION 08/19/2006 06/16/2018 Overview: No, Advance Directive brochure given to patient at prior appointment. documented as of this encounter (statuses as of 08/26/2023) Immunizations Name Administration Dates Next Due COVID-19 mRNA, LNP-s, No Pre serve, 2-Dose Series (Moderna) 08/20/2021,01/11/2021,12/14/2020 Covid-19, Mrna, Lnp-s, Pf, B ivalent, 30 Mcg, IM, 12 yrs and above (Pfizer) 08/18/2022 H1N1 2009 Influenza, IM 09/13/2009 PPD 05/17/2010 SEASONAL INFLUENZA, PF, 6 M & Above, IM , (FLULAVAL or FLUZONE) 06/24/2020,07/22/2019,06/16/2018 Seasonal Influenza, Quadriva lent, No Preserve, [...] encounter Miscellaneous Notes * Telephone Encounter - Raryay Frederick DO - 08/08/2023 12:35 PM EST Call pt No change in plan of care, keep f/u, although no fx, she did injure the scaphoid/lunate region so cont brace until f/u documented in this encounter Plan of Treatment Upcoming Encounters Date Type Department Care Team (Late st Contact Info) Description 08/29/2023 3:30 PM EST Office Visit Orthopaedics [facility] [address] [place] [address] Tenzin Medeiros PA-C [address] [place] [address] 07/03/2024 10:00 AM EDT Office Visit Family Practice [facility] [address] [facility] [place] [address] Amie Barba DO [address] [facility] [place] [address] 08/12/2025 3:00 PM EST Office Visit [address] [address] Elly Tomas PA-C [address] [place] [address] [place] [address] Scheduled Procedures Name Priority Associated Diagnoses Date/Ti [...] filedocumented as of this encounter Care Teams Supervisor Furnace Process Relationship Specialty Start Date End Date Amie Barba DO [address] [place] [address] PCP - General Family Medicine 12/09/18 documented as of this encounter
--- OUTSIDE RECORDS SUMMARY | 2024-02-09 20:58 | External Medical Summary | Summary of Care ---
Author Name Unknown Organization [facility] Address [address] [place] [address] Phone [phone] Care Team Providers Care Sheet Metal Engineer Name Role Phone Amie Barba Primary Care Provider Reason for Visit * Reason Comments Follow Up Right knee Encounter Details Date Type Department Care Team (Late st Contact Info) Description 08/29/2023 3:30 PM EST Office Visit Orthopaedics [facility] [address] [facility] [place] [address] Tenzin Medeiros PA-C [address] [place] [address] Primary osteoarthritis of right knee* Allergies No known active allergiesdocumented as of this encounter (statuses as of 08/29/2023) Medications Medication Sig Dispensed Refills Start Date [...] of right knee 20 mg IX ONCE 08/29/2023 08/29/2023 Ended documented as of this encounter (statuses as of 08/29/2023) Active Problems Problem Noted Date Diagnosed Date [...] as of this encounter (statuses as of 08/29/2023) Resolved Problems Problem Noted Date Diagnosed Date Resolved Date Viral pharyngitis 04/11/2017 04/09/2018 Dyslipidemia, goal to be determined 09/15/2009 10/13/2013 Overview: Per Lipid Taxonomy. HYPOTHYROIDISM NOS 07/14/2009 6 Mixed dyslipidemia 04/21/2009 9 Overview: Per Lipid Taxonomy. ADVANCE DIRECTIVE INFORMATION 08/19/2006 06/16/2018 Overview: No, Advance Directive brochure given to patient at prior appointment. documented as of this encounter (statuses as of 08/29/2023) Immunizations Name Administration Dates Next Due COVID-19 [...] Progress Notes * Tenzin Medeiros PA-C - 08/29/2023 3:32 PM EST ORTHOPAEDIC SURGERY - Clinic Note SUBJECTIVE: Rosalie Newsome is a 62 year old female. Chief Complaint Patient presents with Follow Up Right knee HPI: Rosalie is a very pleasant 62-year-old female who presents to the clinic today for clinical re-evaluation roughly 7 weeks following right knee corticosteroid injection and for initiation of Euflexxa viscosupplementation series. Today she reports that her corticosteroid injection in the right knee was quite beneficial for a short time, and that her knee felt great while it was effective. She reports that roughly 2 weeks ago her pain returned. She is interested in initiation of viscosupplementation series. Review of Systems: Constitutional ROS: No fevers, sweats, or chills Cardiovascular ROS: No chest pain Respiratory ROS: No breathing difficulty Gastrointestinal ROS: No abdominal pain Musculoskeletal/Extremities ROS: Right knee pain Neurologic ROS: No numbness or tingling Review [...] mouth in the morning. 90 Tablet 3 No current facility-administered medications [...] performed by Linda Orellana MD at ENDOSCOPY [facility] EGD, FLEXIBLE, W/BIOPSY 09/20/2008 mild esophageal reflux INFORMATION tendon surgery left foot. KNEE ARTHROSCOPY/MENISCECTOMY Left 06/14/2020 MAMMOGRAM - 1 BREAST 04/24/2007 birad 2 right MAMMOGRAM - BILATERAL 10/22/2006 5mm nodule r 6 o'clock 6 mo f/u 04/22/07 OTHER 1992 Cervical fusion for bulging C5, Done in [facility] RM LSN SCALP/NCK/EXT 3.1-4.0 N/A 05/11/2020 [facility]- precancer TENDON SHEATH INCISION, FINGER Right trigger finger Social History Tobacco Use Smoking status: Never Smokeless tobacco: Never Vaping Use Vaping Use: Never used Substance Use Topics Alcohol use: Yes Comment: Rare Drug use: No Family history: Noncontributory OBJECTIVE: Diagnostic Testing: Previous radiographs of the right knee obtained on 05/24/2023 demonstrate no obvious evidence of fracture or dislocation. There is evidence of tricompartmental osteoarthritis which appears to be mostsignificant in the medial and patellofemoral compartments. Vital Signs: LMP 09/19/2010 Physical Exam: General: [...] Examination of the right knee reveals no gross deformity, erythema, ecchymosis, orskin breakdown. There is no palpable effusion. There is tenderness to palpation of an exquisite degree over the medial joint line and over the lateral joint line to a lesser degree. There is some tenderness to palpation within the popliteal fossa, but no palpable defect or appreciated popliteal cyst. Tenderness within the popliteal fossa is increased with knee extension. She is able to demonstrate a straight leg raise with good quad strength and range the knee from full extension to roughly 125 flexion without difficulty. Collateral stability is intact. Calf is supple and nontender. She is distally neurovascularly intact with appropriate sensation to light touch, palpable pulses, and brisk cap refill. Distal motor function is intact. Gait assessment is nonantalgic and of normal prasad. ASSESSMENT: Primary osteoarthritis of right knee (Primary) - ARTHROCENT ASP &/OR INJ MAJOR JX/BURSA W/O US - Sodium Hyaluronate (Viscosup) (Euflexxa/Hyalgan) 20 MG/2ML inj 20 mg Follow Up: Return in about 1 week (around 09/05/2023) for Clinic Visit. | For: Clinic Visit PLAN: Patient's good relief from corticosteroid injection, return of her pain, exam today, and recommendations moving forward were discussed with her in the office today. I do believe, based on her symptomrelief following corticosteroid injection, that her pain is most likely driven by osteoarthritis which was discussed at length in the office today. As such, I am in agreement that viscosupplementation would be appropriate, and we will initiate a Euflexxa viscosupplementation series today for treatment of her right knee symptoms. This was very well tolerated today. Patient was advised against significant physical activity today, but was recommended to resume activities as normal tomorrow. I would like patient to follow up in 1-2 weeks for her 2nd Euflexxa injection for the right knee. Patient was certainly urged to contact clinic in the interim with any questions, concerns, or worsening of symptoms. Patient is comfortable with the plan, and all questions were answered. Injection Procedure Note: RIGHT Knee: Time out: Prior to injection, a [...] Patient also advised as to potential for steroid flare reaction including increased pain and redness at injection site which should be treated with ice and resolve within 24 hours. Tenzin Medeiros PA-C This chart was completed in part utilizing [employer] Speech Voice Recognition Software. Grammatical errors, random word insertions, pronoun errors, and incomplete sentences are an occasional consequence of this system due to software limitations, ambient noise, and hardware issues. Any formal questions or concerns about the content, text, or information contained within the body of this dictation should be directly addressed to the provider for clarification. Tenzin Medeiros PA-C 08/29/2023 3:32 PM documented in this encounter Nursing Notes * Kalyn Bennett MED ASSIST - 08/29/2023 3:15 PM EST Patient presents today for 6 week follow up on right knee, here for 1st Euflexxa documented in this encounter Plan of Treatment Upcoming Encounters Date Type Department Care Team (Late st Contact Info) Description 09/05/2023 8:00 AM EST Office Visit Orthopaedics [facility] [address] [place] [address] Tenzin Medeiros PA-C [address] [place] [address] 09/17/2023 10:00 AM EST Office Visit Orthopaedics, Mary Koch [address] [place] [address] Tenzin Medeiros PA-C [address] [place] [address] 07/03/2024 10:00 AM EDT Office Visit Family Practice [facility] [address] [facility] [place] [address] Amie Barba, [address] [facility] [place] [address] 08/12/2025 3:00 PM EST Office Visit [address] [place] [address] Elly Tomas PA-C [address] [place] [address] [place] [address] Scheduled Orders Name Type Priority Associated Diagnoses Orde r Schedule ARTHROCENT ASP &/OR INJ MAJOR JX/BURSA W/O US Procedures Routine Primary osteoarthritis of right knee Ordered: 08/29/2023 Scheduled Procedures Name Priority Associated Diagnoses Date/Ti [...] 20 mg 20 mg, Intra-Articular, ONCE, On Jazmine 08/29/23 at 1615, For 1 dose Given 08/29/2023 3:52 PM EST 20 mg Knee Right documented in this encounter Care Teams Sheet Metal Engineer Relationship Specialty Start Date End Date Amie Barba DO [address] [place], [place] [id number] PCP - General Family Medicine 12/09/18 documented as of this encounter"
--- OUTSIDE RECORDS SUMMARY | 2024-02-09 20:58 | External Medical Summary | Summary of Care ---
Author Name Unknown Organization [facility] Address [address] [place] [address] Phone [phone] Care Team Providers Care Cell Biologist Name Role Phone Bcsoni Amie Luna DO Primary Care Provider Reason for Visit * Reason Onset Date Comments Durable Medical Equipment 08/20/2023 CPAP r esupply Encounter Details Date Type Department Care Team (Late st Contact Info) Description 08/20/2023 Telephone Sleep Lab [facility] [address] [place] [address] Tomasz Patel, SALON MANAGER Durable Medical Equipment (CPAP resupply ) Allergies No known active allergiesdocumented as of this encounter (statuses as of 09/09/2023) Medications Medication Sig Dispensed Refills Start Date [...] the morning. 90 Tablet 3 3 Active documented as of this encounter (statuses as of 09/09/2023) Active Problems Problem Noted Date Diagnosed Date [...] as of this encounter (statuses as of 09/09/2023) Resolved Problems Problem Noted Date Diagnosed Date Resolved Date Viral pharyngitis 04/11/2017 04/09/2018 Dyslipidemia, goal to be determined 09/15/2009 10/13/2013 Overview: Per Lipid Taxonomy. HYPOTHYROIDISM NOS 07/14/2009 6 Mixed dyslipidemia 04/21/2009 9 Overview: Per Lipid Taxonomy. ADVANCE DIRECTIVE INFORMATION 08/19/2006 06/16/2018 Overview: No, Advance Directive brochure given to patient at prior appointment. documented as of this encounter (statuses as of 09/09/2023) Immunizations Name Administration Dates Next Due COVID-19 [...] Notes * Telephone Encounter - Tomasz Patel, SALON MANAGER - 08/20/2023 9:44 AM EST VGM Order Items / Services RequestedEDIT Number [id number] Name S9 Standard;CPAP Filters 2PK Vendor [employer] EA Quantity 3 Number [id number] Name Air 10 Heated Tubing; Vendor [employer] EA Quantity 1 Number [id number] Name Air 10 Standard;Water Tub Vendor [employer] EA Quantity 1 Number [id number] Name AirFit F30 Cushion: Small Vendor [employer] EA Quantity 2 Number [id number] Name AIRFIT F30 FRAME SYS - SML Vendor [employer] EA Quantity 1 Number [id number] Name AIRFIT F30 HEADGEAR - STD Vendor [employer] EA Quantity 1 Shipping OptionsEDIT Requested Shipping Date 08/29/2023 * Telephone Encounter - Rosita Epstein OSA - 08/20/2023 9:29 AM EST [facility] [id number] GREG BS [employer] On 08/29 Eligible for all supplies (climatelinear tubing) and 3 months supply cushions and disp filters * Telephone Encounter - Tomasz Patel RRT - 08/20/2023 9:18 AM EST Contacted via: phone Requested items: All Supplies Mask: Resmed Airfit f30 -Small Tubing: climatelinear Machine: Resmed Last office visit: 08/20/2023 Order date: 08/20/2023 Current insurance: [employer] [id number] Compliance data: Compliance Report Usage 07/21/2023 - 08/19/2023 Usage days 30/30 days (100%) >= 4 hours 30 days (100%) documented in this encounter Plan of Treatment Upcoming Encounters Date Type Department Care Team (Late st Contact Info) Description 09/17/2023 10:00 AM EST Office Visit Orthopaedics, [facility] [address] [place] [address] Tenzin Medeiros PA-C [address] [place] [address] [place] [address] 07/03/2024 10:00 AM EDT Office Visit Family Practice [facility] [address] [facility] [place] [address] Freda Amie Luna, [address] [facility] [place] [address] 08/12/2025 3:00 PM EST Office Visit [facility] [facility] [address] Elly Tomas PA-C [address] [place] [address] [place] [address] Scheduled Procedures Name Priority Associated Diagnoses Date/Ti [...] filedocumented as of this encounter Care Teams Cell Biologist Relationship Specialty Start Date End Date Amie Barba DO [address] [place] [address] PCP - General Family Medicine 12/09/18 documented as of this encounter
--- OUTSIDE RECORDS SUMMARY | 2024-02-09 20:58 | External Medical Summary | Summary of Care ---
Author Name Unknown Organization [facility] Address [address] [place] [address] Phone [phone] Care Team Providers Care Trimming Machine Operator Name Role Phone Amie Barbaberly Primary Care Provider Reason for Referral * Evaluate & Treat - Unlimited Visits (Within 10 days (routine)) - Pending Review Specialty Diagnoses / Procedures Referred By Frances linares Referred To Contact Orthopaedic Surgery / Orthopedics Diagnoses Injury of left wrist, initial encounter Rayray Frederick DO [address] [place] [address] Referral ID Status Reason Start Date Expiration Date Visits Requested Visits Authorized [id number] Pending Review Specialty Services Required 3 [phone] Question Answer Referral Priority Within 10 days (routine) Where should this appointment be scheduled? [facility] What body part is the patient being seen for? Hand What condition is the patient being seen for? Sprain/Strain/Tear/Other Comments Dr oneal, s/p scaphoid injury per Yoanna Encounter Details Date Type Department Care Team (Late st Contact Info) Description 08/26/2023 Telephone Orthopaedics [facility] [address] [place] [address] Rayray Frederick DO [address] [place] [address] Allergies No known active allergiesdocumented as of [...] encounter Miscellaneous Notes * Telephone Encounter - Rayray Frederick DO - 08/26/2023 9:00 AM EST Please schedule with Dr. Oneal. documented in this encounter Plan of Treatment Upcoming Encounters Date Type Department Care Team (Late st Contact Info) Description 08/29/2023 3:30 PM EST Office Visit Orthopaedics [facility] 132 [facility] [place] [address] Tenzin Medeiros PA-C [address] [place] [address] 07/03/2024 10:00 AM EDT Office Visit Family Practice [facility] 200 [facility] [place] [address] Amie Barba DO [address] [place] [address] 08/12/2025 3:00 PM EST Office [address] [address] Elly Tomas PA-C [address] [place] [address] [place] [address] Scheduled Procedures Name Priority Associated Diagnoses Date/Ti me COLONOSCOPY FLEXIBLE PROXIMA L DIAGNOSTIC Recall Encounter for screening colonoscopy Scheduled Referrals Name Type Priority Associated Diagnoses Order Schedule ORTHOPAEDICS REFERRAL OP Referral Within 10 days (routine) Injury of left wrist, initial encounter Ordered: 08/26/2023 Health Maintenance Due Date Last Done Comments [...] as of this encounter Visit Diagnoses Diagnosis Injury of left wrist, initial encounter- Primary documented in this encounter Care Teams Trimming Machine Operator Relationship Specialty Start Date End Date Amie Barba DO [address] [place] [address] PCP - General Family Medicine 12/09/18 documented as of this encounter
--- OUTSIDE RECORDS SUMMARY | 2024-02-09 20:58 | External Medical Summary | Summary of Care ---
Author Name Unknown Organization [facility] Address [address] [place] [address] Phone [phone] Care Team Providers Care Shutdown Planner Name Role Phone Freda Hollowaybaljinder Luna Primary Care Provider Encounter Details Date Type Department Care Team (Late st Contact Info) Description 09/05/2023 8:00 AM EST Office Visit Orthopaedics [facility] [address] [facility] [place] [address] Tenzin Medeiros PA-C [address] [place] [address] Primary osteoarthritis of right knee* Allergies No known active allergiesdocumented as of this encounter (statuses as of 09/05/2023) Medications Medication Sig Dispensed Refills Start Date [...] of right knee 20 mg IX ONCE 09/05/2023 09/05/2023 Ended documented as of this encounter (statuses as of 09/05/2023) Active Problems Problem Noted Date Diagnosed Date [...] as of this encounter (statuses as of 09/05/2023) Resolved Problems Problem Noted Date Diagnosed Date Resolved Date Viral pharyngitis 04/11/2017 04/09/2018 Dyslipidemia, goal to be determined 09/15/2009 10/13/2013 Overview: Per Lipid Taxonomy. HYPOTHYROIDISM NOS 07/14/2009 6 Mixed dyslipidemia 04/21/2009 9 Overview: Per Lipid Taxonomy. ADVANCE DIRECTIVE INFORMATION 08/19/2006 06/16/2018 Overview: No, Advance Directive brochure given to patient at prior appointment. documented as of this encounter (statuses as of 09/05/2023) Immunizations Name Administration Dates Next Due COVID-19 [...] Progress Notes * Tenzin Medeiros PA-C - 09/05/2023 8:00 AM EST ORTHOPAEDIC SURGERY - Clinic Note/Visco Injection SUBJECTIVE: Rosalie Newsome is a 62 year old female. No chief complaint on file. HPI: Rosalie is a very pleasant 62-year-old female who presents to the clinic today for right knee Euflexxa injection. This will be her 2nd injection of her current series. Review of patient's allergies indicates: No Known [...] Primary osteoarthritis of right knee (Primary) - Sodium Hyaluronate (Viscosup) (Euflexxa/Hyalgan) 20 MG/2ML inj 20 mg - ARTHROCENT ASP &/OR INJ MAJOR JX/BURSA W/O US Follow Up: Return for Clinic Visit. | For: Clinic Visit | Check-out note: 1-2 weeks PLAN: We will proceed with right knee Euflexxa injection. This was her 2nd injection of the series. This was very well tolerated today. Patient was advised to refrain from significant physical activity today but may resume activities as normal tomorrow. I would like patient to follow up in 1-2 weeks for her 3rd and final injection of her series. Patient was certainly urged to contact clinic [...] This chart was completed in part utilizing [employer] Speech Voice Recognition Software. Grammatical errors, random word insertions, pronoun errors, and incomplete sentences are an occasional consequence of this system due to software limitations, ambient noise, and hardware issues. Any formal questions or concerns about the content, text, or information contained within the body of this dictation should be directly addressed to the provider for clarification. Tenzin Medeiros PA-C 09/05/2023 8:00 AM documented in this encounter Nursing Notes * Ruth Lucas ATC - 09/05/2023 7:58 AM EST Second Eufflexa in R knee. States that she has noticed a small decrease in pain since last injection. Reporting that STS is the hardest motion for her and painful. Today reporting 3/10 pain. documented in this encounter Plan of Treatment Upcoming Encounters Date Type Department Care Team (Late st Contact Info) Description 09/17/2023 10:00 AM EST Office [facility] [address] [place] [address] Tenzin Medeiros PA-C [address] [place] [address] 07/03/2024 10:00 AM EDT Office Visit Family Practice [facility] 200 [facility] [place] [address] Amie Barba, 200 [facility] [place] [address] 08/12/2025 3:00 PM EST Office Visit [address] [address] Elly Tomas PA-C [address] [place] [address] [place] [address] Scheduled Orders Name Type Priority Associated Diagnoses Orde r Schedule ARTHROCENT ASP &/OR INJ MAJOR JX/BURSA W/O US Procedures Routine Primary osteoarthritis of right knee Ordered: 09/05/2023 Scheduled Procedures Name Priority Associated Diagnoses Date/Ti me COLONOSCOPY FLEXIBLE PROXIMA L DIAGNOSTIC Recall Encounter for screening colonoscopy Health Maintenance Due Date Last Done Comments Cologuard 2005 Sigmoidoscopy 2005 Fecal Occult Blood Test 06/01/2009 06/01/2008 COVID-19 Vaccine (5 - 2023-24 season) 2023 08/18/2022, 08/20/2021, 01/11/2021, Additional history [...] mg 20 mg, Intra-Articular, ONCE, On Jazmine 09/05/23 at 0845, For 1 dose Given 09/05/2023 8:12 AM EST 20 mg Knee Right documented in this encounter Care Teams Shutdown Planner Relationship Specialty Start Date End Date Amie Barba DO [address] [place], [place] [id number] PCP - General Family Medicine 12/09/18 documented as of this encounter"
--- OUTSIDE RECORDS SUMMARY | 2024-02-09 20:58 | External Medical Summary | Summary of Care ---
Author Name Unknown Organization [facility] Address [address] [place] [address] Phone [phone] Care Team Providers Care Vinyl Hanger Name Role Phone Amie Barba Primary Care Provider Reason for Visit * Reason Comments Follow Up Eufflexxa ## right k nee. Encounter Details Date Type Department Care Team (Late st Contact Info) Description 09/17/2023 10:00 AM EST Office Visit Orthopaedics, [facility] [address] [place] [address] Tenzin Medeiros PA-C [address] [place] [id number] Primary osteoarthritis of right knee* Allergies No [...] This chart was completed in part utilizing [employer] Voice Recognition Software. Grammatical errors, random [...] 11/21/2023 9:00 AM EST Office Visit Orthopaedics [facility] 132 [facility] [place] [address] Tenzin Medeiros PA-C [address] [place] [address] 07/03/2024 10:00 AM EDT Office Visit [facility] 200 [facility] [place] [address] Amie Barba DO 200 [facility] [place] [address] 08/12/2025 3:00 PM EST Office Visit [address] [id number] Elly Tomas PA-C [address] [place] [address] [place] [address] Scheduled Orders Name Type Priority Associated Diagnoses [...] Right documented in this encounter Care Teams Vinyl Hanger Relationship Specialty Start Date End Date Amie Barba DO [address] [place] [address] PCP - General Family Medicine 12/09/18 documented as of this encounter
--- OUTSIDE RECORDS SUMMARY | 2024-02-09 20:58 | External Medical Summary | Summary of Care ---
Author Name Unknown Organization [facility] Address [address] [place] [address] Phone [phone] Care Team Providers Care Wafer Line Worker Name Role Phone Amie Barba Primary Care Provider Reason for Visit * Reason Comments Other Scabies exposure Encounter Details Date Type Department Care Team (Late st Contact Info) Description 08/24/2023 3:50 PM EST Tele[facility] [address] [address] Brooks Kaur, [address] [address] Scabies exposure*; Acquired hypothyroidism; EDSON (generalized anxiety disorder) Allergies No known active allergiesdocumented as of this encounter (statuses as of 08/24/2023) Medications Medication Sig Dispensed Refills Start Date [...] morning. 90 Tablet 3 10/22/19 23 Active Levothyroxine Sodium 88 MCG Oral Tablet (Levoxyl)Indications:Acq uired hypothyroidism Take 1 tablet daily six days a week and take 2 tablets daily one day a week.(at least 30 min prior to breakfast or other meds) 96 Tablet 3 10/22/19 23 Active rOPINIRole HCl 0.25 MG Oral Tablet (Requip)Indications:Rest less legs syndrome (RLS) Take 1-2 tablets by mouth at bedtime for RLS/PLMD 180 Tablet 3 10/22/19 Active buPROPion HCl ER (XL) 150 MG Oral Tablet Extended Release 24 Hour (Wellbutrin XL)Indications:EDSON (generalized anxiety disorder) Take 1 Tablet by mouth in the morning. 90 Tablet 3 10/22/19 23 Active Escitalopram Oxalate 10 MG Oral Tablet [...] morning. 90 Tablet 3 07/29/20 23 Active Permethrin 5 % External Cream (Elimite)Indications:Sca bies exposure Apply topically to affected area once for 1 dose. Apply from top of neck to toes all over, wash off after 12 hours 60 g 1 08/24/20 23 023 Active Cyclobenzaprine HCl 5 MG Oral Tablet (Flexeril) Take by mouth 1 Tablet as needed before bedtime for Muscle spasms. 30 Tablet 0 07/02/20 22 023 Discontinued documented as of this encounter (statuses as of 08/24/2023) Active Problems Problem Noted Date Diagnosed Date EDSON (generalized anxiety disorder) 06/26/2021 Pure hypercholesterolemia 06/26/2021 Ruptured Bakers cyst 06/23/2019 Lumbar disc herniation 06/23/2019 S/P cervical spinal fusion 06/16/2018 Acquired hypothyroidism 06/07/2017 Chronic rhinitis 04/11/2017 MEILIE (obstructive sleep apnea) 08/17/2016 High triglycerides 04/21/2009 Esophageal reflux 09/07/2008 Migraine 01/16/2005 documented as of this encounter (statuses as of 08/24/2023) Resolved Problems Problem Noted Date Diagnosed Date Resolved Date Viral pharyngitis 04/11/2017 04/09/2018 Dyslipidemia, goal to be determined 09/15/2009 10/13/2013 Overview: Per Lipid Taxonomy. HYPOTHYROIDISM NOS 07/14/2009 6 Mixed dyslipidemia 04/21/2009 9 Overview: Per Lipid Taxonomy. ADVANCE DIRECTIVE INFORMATION 08/19/2006 06/16/2018 Overview: No, Advance Directive brochure given to patient at prior appointment. documented as of this encounter (statuses as of 08/24/2023) Immunizations Name Administration Dates Next Due COVID-19 [...] as of this encounter Progress Notes * Brooks Kaur, DO - 08/24/2023 4:03 PM EST SUBJECTIVE: Chief Complaint Patient presents with Other Scabies exposure HPI: Rosalie Newsome is a 62 year old female who presents to the clinic for scabies exposure and other comorbidities. Patient location: HOME. I was in a hospital or clinic location. After connecting through [employer],patient was verified with two unique identifiers. Patient (or authorized legal artists' booking representative) was then informed that this was a Telemedicine visit and being conducted confidentially over secure lines. Methods to assure confidentiality were taken. Patient acknowledged consent and understanding of pr ivacy and security of the Telemedicine visit. The patient agreed to participate. No thyroid tenderness. No change in energy levels. No worsening anxiety. No symptoms of depression. She is due for vaccinations. Her son was diagnosed with a scabies rash. This is from his nephew. He was at her house for [employer]. She is asymptomatic. Her son's treating provider recommended close contacts receive treatment. She would like to discuss treatment options. Patient Active Problem List Diagnosis Code Migraine G43.909 Esophageal reflux K21.9 High triglycerides E78.1 EMILIE (obstructive sleep apnea) G47.33 Chronic rhinitis J31.0 Acquired hypothyroidism E03.9 S/P cervical spinal fusion Z98.1 Ruptured Bakers cyst M66.0 Lumbar disc herniation M51.26 EDSON (generalized anxiety disorder) F41.1 Pure hypercholesterolemia E78.00 Current Outpatient Medications Medication Sig Dispense Refill Permethrin 5 % External Cream (Elimite) Apply topically to affected area once for 1 dose. Apply from top of neck to toes all over, wash off after 12 hours 60 g 1 NIACIN 500 MG PO TABS One pill [...] No current facility-administered medications for this visit. Review of patient's allergies indicates: No Known Allergies Review of Systems: General: No fevers or malaise. Skin: No rash. Neck: No thyroid tenderness. Psych: No changes in mood. OBJECTIVE: Telemedicine visit. PHYSICAL EXAM: General: Alert, no distress. Eyes: No conjunctivitis, drainage or excessive tearing. Nose: No epistaxis or rhinorrhea. Lungs: No audible cough or wheezing. Neuro: Alert, oriented, fluent speech. Psych: Normal mood and affect. ASSESSMENT/PLAN: Scabies exposure (Primary) Plan: She is asymptomatic. We will start permethrin as below. We discussed contacting pest control to evaluate the home. - Permethrin 5 % External Cream (Elimite); Apply topically to affected area once for 1 dose. Apply from top of neck to toes all over, wash off after 12 hours Acquired hypothyroidism Plan: She is asymptomatic. I reviewed her previous thyroid function. No change in pharmacotherapy. EDSON (generalized anxiety disorder) Plan: No new symptoms. I reviewed her renal function and vitamin D level. No change in pharmacotherapy. Health maintenance Influenza vaccine: She will consider in the future. COVID 19 vaccine, RSV vaccine: Follow up with the pharmacy. No active symptoms of depression. Keep appointment in 06/2024 with PCP. Seen earlier if needed. Brooks Kaur DO 08/24/2023 4:16 PM documented in this encounter Plan of Treatment Upcoming Encounters Date Type Department Care Team (Late st Contact Info) Description 08/29/2023 3:30 PM EST Office Visit Orthopaedics [facility] 132 [facility] [place] [address] Tenzin Medeiros PA-C [address] [place] [address] 07/03/2024 10:00 AM EDT Office Visit Family Practice [facility] 200 [facility] [place] [address] Amie Barba DO 200 [facility] [place] [address] 08/12/2025 3:00 PM EST Office Visit [address] [place] [address] Elly Tomas PA-C [address] [place] [address] [place] [address] Scheduled Procedures Name Priority Associated Diagnoses Date/Ti [...] as of this encounter Visit Diagnoses Diagnosis Scabies exposure- Primary Contact with or exposure to other communicable diseases Acquired hypothyroidism Unspecified hypothyroidism EDSON (generalized anxiety disorder) Generalized anxiety disorder documented in this encounter Care Teams Wafer Line Worker Relationship Specialty Start Date End Date Amie Barba DO [address] [place] [address] PCP - General Family Medicine 12/09/18 documented as of this encounter
--- OUTSIDE RECORDS SUMMARY | 2024-02-09 20:58 | External Medical Summary | Summary of Care ---
Author Name Unknown Organization [facility] Address [address] [place] [address] Phone [phone] Care Team Providers Care Network Support Analyst Name Role Phone Amie Barba Primary Care Provider Reason for Visit * Reason Comments NEW PATIENT Left wrist injury DO I 07/26/2023 * Evaluate & Treat - Unlimited Visits (Within 10 days (routine)) - Pending Review Specialty Diagnoses / Procedures Referred By Frances linares Referred To Contact Orthopaedic Surgery / Orthopedics Diagnoses Injury of left wrist, initial encounter Rayray Frederick DO [address] [place] [address] Referral ID Status Reason Start Date Expiration Date Visits Requested Visits Authorized [id number] Pending Review Specialty Services Required [phone] Encounter Details Date Type Department Care Team (Latest Contact Info) Description 08/28/2023 9:30 AM EST Office Visit Orthopaedics [facility] [address] [place] [address] Josh Oneal MD [address] [place] [address] Primary osteoarthritis of first carpometacarpal joint of left hand*; Neurapraxia of left median nerve, initial encounter Allergies No known active allergiesdocumented as of this encounter (statuses as of 08/28/2023) Medications Medication Sig Dispensed Refills Start Date [...] as of this encounter (statuses as of 08/28/2023) Active Problems Problem Noted Date Diagnosed Date [...] as of this encounter (statuses as of 08/28/2023) Resolved Problems Problem Noted Date Diagnosed Date Resolved Date Viral pharyngitis 04/11/2017 04/09/2018 Dyslipidemia, goal to be determined 09/15/2009 10/13/2013 Overview: Per Lipid Taxonomy. HYPOTHYROIDISM NOS 07/14/2009 6 Mixed dyslipidemia 04/21/2009 Overview: Per Lipid Taxonomy. ADVANCE DIRECTIVE INFORMATION 08/19/2006 06/16/2018 Overview: No, Advance Directive brochure given to patient at prior appointment. documented as of this encounter (statuses as of 08/28/2023) Immunizations Name Administration Dates Next Due COVID-19 [...] on file documented as of this encounter H&P Notes * Josh Oneal MD - 08/28/2023 10:00 AM EST HISTORY & PHYSICAL EXAMINATION - Hand Surgery Name: Rosalie Newsome Date: 08/28/2023 Time: 10:00 AM Date and Time Patient was Seen: 08/28/2023 at 10:00 AM PRESENTING PROBLEM: Pain in the left hand HPI: The patient is a 62-year-old [id number] female who is seen today at the recommendation of Dr. Frederick for a hand surgery consultation regarding an injury to the left wrist and hand sustained when she fell on July 26, 2023. She presents today complaining of pain in the region of the base of the left thumb and thenar eminence. She also has paresthesias along the radial aspect of the thumb. PAST MEDICAL HISTORY: Past Medical History: Diagnosis Date Esophageal reflux 09/07/2008 mild esophageal Hypothyroidism Patient Active Problem List Diagnosis Code Migraine G43.909 Esophageal reflux K21.9 High triglycerides E78.1 EMILIE (obstructive sleep apnea) G47.33 Chronic rhinitis J31.0 Acquired hypothyroidism E03.9 S/P cervical spinal fusion Z98.1 Ruptured Bakers cyst M66.0 Lumbar disc herniation M51.26 EDSON (generalized anxiety disorder) F41.1 Pure hypercholesterolemia E78.00 Primary osteoarthritis of first carpometacarpal joint of left hand M18.12 PAST SURGICAL HISTORY: Past Surgical History: Procedure Laterality Date CARPAL TUNNEL SURGERY Right COLONOSCOPY, DIAGNOSTIC (RECTUM) 02/26/2019 biopsies show hyperplastic polyps/recall 10 years/COLONOSCOPY FLEXIBLE PROXIMAL DIAGNOSTIC performed by Linda Orellana MD at ENDOSCOPY [facility] EGD, FLEXIBLE, W/BIOPSY 09/20/2008 mild esophageal reflux INFORMATION tendon surgery left foot. KNEE ARTHROSCOPY/MENISCECTOMY Left 06/14/2020 MAMMOGRAM - 1 BREAST 04/24/2007 birad 2 right MAMMOGRAM - BILATERAL 10/22/2006 5mm nodule r 6 o'clock 6 mo f/u 04/22/07 OTHER 1992 Cervical fusion for bulging C5, Done in [facility]V LSN SCALP/NCK/EXT 3.1-4.0 N/A 05/11/2020 [facility]- precancer TENDON SHEATH INCISION, FINGER Right trigger finger FAMILY HISTORY: Family History Problem Relation Age of Onset Diabetes Mother Obesity Mother Neurological Disorder Father Lewy Body Disease, at 70 No Past Hx Sister No Past Hx Sister No Past Hx Brother Endocrine Disorder Brother Hypercholesterol Endocrine Disorder Brother Hypercholesterol No Past Hx Brother No Past Hx Daughter No Past Hx Son No Past Hx Son SOCIAL HISTORY: Social History Tobacco Use Smoking status: Never Smokeless tobacco: Never Vaping Use Vaping Use: Never used Substance Use Topics Alcohol use: Yes Comment: Rare Drug use: No MARITAL STATUS: CURRENT MEDICATIONS: Current Outpatient Medications Medication Sig Dispense Refill [...] No current facility-administered medications for this visit. ALLERGIES: Patient has no known allergies. ROS: Negative for GI, , Cardiac, Respioratory and Neurologic complains. Remainder of systems negative. PHYSICAL EXAMINATION: General: Well developed, well nourished. Neuro: Awake, alert, and oriented. Heart & Lungs OK Extremities: There is a lot of tenderness to manipulation of the base of the left 1st metacarpal and pressure on the base of the 1st metacarpal in the base of the thenar eminence. Phalen's test is positive on the left. Tinel sign is absent over the median nerve. Subjective sensation is a bit different in the left thumb index and middle fingers. Static 2 point discrimination is normal. There is pain with resisted abduction of the left thumb so I can not fully assess whether there is thenar weakness. I think that there is a bit. There is no atrophy. There is good capillary refill. X-rays and a CT scan of the left wrist were personally reviewed by me. There is very mild osteoarthritis of the basal joint of the left thumb. IMPRESSION: I think that she had underlying left trapeziometacarpal arthritis which was aggravated by the fall and is now symptomatic. I also think that she has a neurapraxia of the left median nerve. PLAN: I prescribed a thumb spica splint for her to wear at night and an opponens splint for her to wear during the day. She may advance her activities as tolerated. I explained to her that this may take several months for the numbness to resolve. We also talked about different options for treatment of the symptomatic arthritis at the base of her thumb. She has some Voltaren gel and she is going to try using that. I also recommended Aleve orally. Follow-up will be on a p.r.n. basis. I suggested that she t make a follow-up appointment with me in about 3 months if she is still symptomatic. Thank you for this consultation. Patient Active Problem List Diagnosis Code Migraine G43.909 Esophageal reflux K21.9 High triglycerides E78.1 EMILIE (obstructive sleep apnea) G47.33 Chronic rhinitis J31.0 Acquired hypothyroidism E03.9 S/P cervical spinal fusion Z98.1 Ruptured Bakers cyst M66.0 Lumbar disc herniation M51.26 EDSON (generalized anxiety disorder) F41.1 Pure hypercholesterolemia E78.00 Primary osteoarthritis of first carpometacarpal joint of left hand M18.12 Josh Oneal MD documented in this encounter Nursing Notes * Soraida Forbes LPN - 08/28/2023 9:38 AM EST .ch documented in this encounter Plan of Treatment Upcoming Encounters Date Type Department Care Team (Late st Contact Info) Description 08/29/2023 3:30 PM EST Office Visit Orthopaedics [facility] 132 [facility] [place] [address] Tenzin Medeiros PA-C [address] [place] [address] 07/03/2024 10:00 AM EDT Office Visit [facility] 200 [facility] [place] [address] Amie Barba DO 200 [facility] [place] [address] 08/12/2025 3:00 PM EST Office [address] [address] Elly Tomas PA-C [address] [place] [address] [place] [address] Scheduled Procedures Name Priority Associated Diagnoses Date/Ti [...] encounter Visit Diagnoses Diagnosis Primary osteoarthritis of first carpometacarpal joint of left hand- Primary Primary localized osteoarthrosis, hand Neurapraxia of left median nerve, initial encounter documented in this encounter Care Teams Network Support Analyst Relationship Specialty Start Date End Date Amie Barba DO [address] [place] [address] PCP - General Family Medicine 12/09/18 documented as of this encounter
--- OUTSIDE RECORDS SUMMARY | 2024-02-09 20:59 | External Medical Summary | Summary of Care ---
Author Name Unknown Organization [facility] Address [address] [place] [address] Phone [phone] Care Team Providers Care Beam Sealer Name Role Phone Freda Holloway Cheryl Primary Care Provider Encounter Details Date Type Department Care Team (Late st Contact Info) Description 08/15/2023 Telephone Orthopaedics [facility] [address] [facility] [place] [address] Rayray Frederick DO [address] [facility] [place] [address] Allergies No known active allergiesdocumented as of this encounter (statuses as of 08/15/2023) Medications Medication Sig Dispensed Refills Start Date [...] by mouth in the morning. 0 Active Cyclobenzaprine HCl 5 MG Oral Tablet (Flexeril) Take by mouth 1 Tablet as needed before bedtime for Muscle spasms. 30 Tablet 0 2 Active Additional Information Patient not taking.Reported on 08/06/2023 Atorvastatin Calcium 40 MG Oral Tablet (Lipitor)Indications:Pure [...] as of this encounter (statuses as of 08/15/2023) Active Problems Problem Noted Date Diagnosed Date EDSON (generalized anxiety disorder) 06/26/2021 Pure hypercholesterolemia 06/26/2021 Ruptured Bakers cyst 06/23/2019 Lumbar disc herniation 06/23/2019 S/P cervical spinal fusion 06/16/2018 Acquired hypothyroidism 06/07/2017 Chronic rhinitis 04/11/2017 EMILIE (obstructive sleep apnea) 08/17/2016 High triglycerides 04/21/2009 Esophageal reflux 09/07/2008 Migraine 01/16/2005 documented as of this encounter (statuses as of 08/15/2023) Resolved Problems Problem Noted Date Diagnosed Date Resolved Date Viral pharyngitis 04/11/2017 04/09/2018 Dyslipidemia, goal to be determined 09/15/2009 10/13/2013 Overview: Per Lipid Taxonomy. HYPOTHYROIDISM NOS 07/14/2009 6 Mixed dyslipidemia 04/21/2009 9 Overview: Per Lipid Taxonomy. ADVANCE DIRECTIVE INFORMATION 08/19/2006 06/16/2018 Overview: No, Advance Directive brochure given to patient at prior appointment. documented as of this encounter (statuses as of 08/15/2023) Immunizations Name Administration Dates Next Due COVID-19 [...] Telephone Encounter - Rayray Frederick DO - 08/15/2023 1:42 PM EST Prior note is an error wrong pt documented in this encounter Plan of Treatment Upcoming Encounters Date Type Department Care Team (Late st Contact Info) Description 08/19/2023 9:15 AM EST Office Visit Orthopaedics [facility] 132 [facility] [place] [address] Rayray Frederick DO 132 [facility] [place] [address] 08/20/2023 8:30 AM EST Office Visit [facility] Disorders Ctr [facility] 132 [facility] [place] [phone] Iliana Mix CRNP 132 [facility] [place] [address] 08/29/2023 3:30 PM EST Office Visit Orthopaedics [facility] 132 [facility] [place] [address] Tenzin Medeiros PA-C [address] [place] [address] 07/03/2024 10:00 AM EDT Office Visit Family Practice [facility] 200 [facility] [place] [address] Amie Barba DO 200 [facility] [place] [address] 08/12/2025 3:00 PM EST Office Visit Dermatology[address] [place] [address] Elly Tomas PANirali [address] [place] [address] [place] [address] Scheduled Procedures Name Priority Associated Diagnoses Date/Ti [...] filedocumented as of this encounter Care Teams Beam Sealer Relationship Specialty Start Date End Date Amie Barba DO [address] [place] [address] PCP - General Family Medicine 12/09/18 documented as of this encounter
--- OUTSIDE RECORDS SUMMARY | 2024-02-09 20:59 | External Medical Summary | Summary of Care ---
Author Name Unknown Organization [facility] Address [address] [place] [address] Phone [phone] Care Team Providers Care Furniture Maker Name Role Phone Amie Barba DO Primary Care Provider Encounter Details Date Type Department Care Team (Late st Contact Info) Description 08/20/2023 Telephone Pulmonary Medicine, [facility] [address] [place] [address] Iliana Mix CRNP [address] [facility] [place] [address] Allergies No known active allergiesdocumented as of this encounter (statuses as of 08/20/2023) Medications Medication Sig Dispensed Refills Start Date [...] bedtime for Muscle spasms. 30 Tablet 0 10/03/202 2 Active Additional Information Patient not taking.Reported [...] as of this encounter (statuses as of 08/20/2023) Active Problems Problem Noted Date Diagnosed Date EDSON (generalized anxiety disorder) 06/26/2021 Pure hypercholesterolemia 06/26/2021 Ruptured Bakers cyst 06/23/2019 Lumbar disc herniation 06/23/2019 S/P cervical spinal fusion 06/16/2018 Acquired hypothyroidism 06/07/2017 Chronic rhinitis 04/11/2017 EMILIE (obstructive sleep apnea) 08/17/2016 High triglycerides 04/21/2009 Esophageal reflux 09/07/2008 Migraine 01/16/2005 documented as of this encounter (statuses as of 08/20/2023) Resolved Problems Problem Noted Date Diagnosed Date Resolved Date Viral pharyngitis 04/11/2017 04/09/2018 Dyslipidemia, goal to be determined 09/15/2009 10/13/2013 Overview: Per Lipid Taxonomy. HYPOTHYROIDISM NOS 07/14/2009 6 Mixed dyslipidemia 04/21/2009 9 Overview: Per Lipid Taxonomy. ADVANCE DIRECTIVE INFORMATION 08/19/2006 06/16/2018 Overview: No, Advance Directive brochure given to patient at prior appointment. documented as of this encounter (statuses as of 08/20/2023) Immunizations Name Administration Dates Next Due COVID-19 [...] encounter Miscellaneous Notes * Telephone Encounter - Jaun Alcala - 08/20/2023 8:58 AM EST DME order placed for GSS documented in this encounter Plan of Treatment Upcoming Encounters Date Type Department Care Team (Late st Contact Info) Description 08/29/2023 3:30 PM EST Office Visit Orthopaedics [facility] [address] [facility] [place] [address] Tenzin Medeiros PA-C [address] [place] [address] 07/03/2024 10:00 AM EDT Office Visit Family Practice [facility] 200 [facility] [place] [address] Amie Barba, 200 [facility] [place] [address] 08/12/2025 3:00 PM EST Office Visit [address] [address] Elly Tomas PA-C [address] [place] [address] [place] [address] Scheduled Procedures Name Priority Associated Diagnoses Date/Ti [...] filedocumented as of this encounter Care Teams Furniture Maker Relationship Specialty Start Date End Date Amie Barba DO [address] [place] [address] PCP - General Family Medicine 12/09/18 documented as of this encounter
--- OUTSIDE RECORDS SUMMARY | 2024-02-09 20:59 | External Medical Summary | Summary of Care ---
Author Name Unknown Organization [facility] Address [address] [place] [address] Phone [phone] Care Team Providers Care Body Line Finisher Name Role Phone Amie Barba Primary Care Provider Reason for Visit * Reason Onset Date Comments Pre Cert/Prior Auth 08/19/2023 Euflexxa HMK 08/19 Encounter Details Date Type Department Care Team (Late st Contact Info) Description 08/19/2023 Telephone Orthopaedics, [facility] [address] [place] [phone] Tenzin Rausch PA-C [address] [place], [place] [phone] Pre Cert/Prior Auth (Euflexxa HMK 08/19) Allergies No known active allergiesdocumented as of this encounter (statuses as of 08/19/2023) Medications Medication Sig Dispensed Refills Start Date [...] as of this encounter (statuses as of 08/19/2023) Active Problems Problem Noted Date Diagnosed Date EDSON (generalized anxiety disorder) 06/26/2021 Pure hypercholesterolemia 06/26/2021 Ruptured Bakers cyst 06/23/2019 Lumbar disc herniation 06/23/2019 S/P cervical spinal fusion 06/16/2018 Acquired hypothyroidism 06/07/2017 Chronic rhinitis 04/11/2017 EMILIE (obstructive sleep apnea) 08/17/2016 High triglycerides 04/21/2009 Esophageal reflux 09/07/2008 Migraine 01/16/2005 documented as of this encounter (statuses as of 08/19/2023) Resolved Problems Problem Noted Date Diagnosed Date Resolved Date Viral pharyngitis 04/11/2017 04/09/2018 Dyslipidemia, goal to be determined 09/15/2009 10/13/2013 Overview: Per Lipid Taxonomy. HYPOTHYROIDISM NOS 07/14/2009 6 Mixed dyslipidemia 04/21/2009 9 Overview: Per Lipid Taxonomy. ADVANCE DIRECTIVE INFORMATION 08/19/2006 06/16/2018 Overview: No, Advance Directive brochure given to patient at prior appointment. documented as of this encounter (statuses as of 08/19/2023) Immunizations Name Administration Dates Next Due COVID-19 [...] encounter Miscellaneous Notes * Telephone Encounter - Kalyn Bennett MED ASSIST - 08/19/2023 12:56 PM EST Orthopaedics Pre-Cert Request Medication/Disease State Information: Medication: Hyaluronate- Euflexxa ([id number]): inject 20 mg (2 mL) once weekly for 3 weeks (total of 3 injections). Route to [id number] Is there radiological proof(x-ray, cat scan, mri of osteoarthritis? If yes, date of scan: Has the patient tried physical therapy?yes Has the patient tried tylenol or NSAIDs?yes Has the patient failed corticosteroid injections of the knee?yes Has the patient tried weight loss?no Has the patient tried knee bracing?yes Has the patient tried a home exercise program?no Diagnosis (including ICD-10): Unilateral primary osteoarthritis, right knee- M17.11 Medication(s) Tried/Failed/Contraindicated: See corresponding visit note(s) for additional supporting clinical information. Office Information: Prescriber: ana rausch pa-c documented in this encounter Plan of Treatment Upcoming Encounters Date Type Department Care Team (Late st Contact Info) Description 08/20/2023 8:30 AM EST Office Visit Sleep Disorders Ctr [facility] 132 [facility] [place] [phone] Iliana Mix CRNP 132 [facility] [place] [address] 08/29/2023 3:30 PM EST Office Visit Orthopaedics [facility] 132 [facility] [place] [address] Tenzin Rausch PA-C [address] [place] [address] 07/03/2024 10:00 AM EDT Office Visit Family Practice [facility] [place] 200 [facility] [place], [place] [address] Amie Barba, 200 [facility] [place] [address] 08/12/2025 3:00 PM EST Office Visit [facility] [address] [facility] [address] Elly Tomas PA-C [address] [place] [address] [place] [address] Scheduled Procedures Name Priority Associated Diagnoses Date/Ti [...] filedocumented as of this encounter Care Teams Body Line Finisher Relationship Specialty Start Date End Date Amie Barba DO [address] [place] [address] PCP - General Family Medicine 12/09/18 documented as of this encounter
--- OUTSIDE RECORDS SUMMARY | 2024-02-09 20:59 | External Medical Summary | Summary of Care ---
Author Name Unknown Organization [facility] Address [address] [place] [address] Phone [phone] Care Team Providers Care Field Sales Manager Name Role Phone Amie Barba Primary Care Provider Reason for Visit * Reason Onset Date Comments Pre Cert/Prior Auth 08/19/2023 Euflexxa HMK 08/19 Encounter Details Date Type Department Care Team (Late st Contact Info) Description 08/19/2023 Telephone Orthopaedics, Mary Koch [address] [place] [phone] Tenzin Rausch PA-C [address] [place], [place] [phone] Pre Cert/Prior Auth (Euflexxa HMK 08/19) Allergies [...] weeks (total of 3 injections). Route to [id number] Is there radiological proof(x-ray, cat scan, mri [...] AM EST Office Visit Sleep Disorders Ctr [facility] 132 [facility] [place] [phone] Iliana Mix CRNP 132 [facility] [place] [address] 08/29/2023 3:30 PM EST Office Visit Orthopaedics [facility] 132 [facility] [place] [address] Tenzin Rausch PA-C [address] [place] [address] 07/03/2024 10:00 AM EDT Office Visit Family Practice [facility] [place] 200 [facility] [place], [place] [address] Amie Barba, 200 [facility] [place] [address] 08/12/2025 3:00 PM EST Office Visit [facility] [address] [facility] [address] Elly Tomas PA-C [address] [place] [address] [place] [address] Scheduled Procedures Name Priority Associated Diagnoses Date/Ti [...] filedocumented as of this encounter Care Teams Field Sales Manager Relationship Specialty Start Date End Date Amie Barba DO [address] [place] [address] PCP - General Family Medicine 12/09/18 documented as of this encounter
--- OUTSIDE RECORDS SUMMARY | 2024-02-09 20:59 | External Medical Summary | Summary of Care ---
Author Name Unknown Organization [facility] Address [address] [place] [address] Phone [phone] Care Team Providers Care General Practitioner Name Role Phone Freda Amie Luna DO Primary Care Provider Reason for Referral * Precert (Within 10 days (routine)) - Pending Review Specialty Diagnoses / Procedures Referred By Contmichaela t Referred To Contact Sleep Disorders Diagnoses EMILIE on CPAP Restless legs syndrome (RLS) Hypersomnia Procedures SLEEP STUDY, W/ CPAP (TREATMENT SETTINGS) Iliana Mix CRNP [address] [place] [address] Referral ID Status Reason Start Date Expiration Date V isits Requested Visits Authorized [id number] Pending Review 08/20/2023 999 999 Reason for Visit * Reason Comments Follow Up Here for return slee p. EMILIE. CPAP. Encounter Details Date Type Department Care Team (Late st Contact Info) Description 08/20/2023 8:30 AM EST Office Visit Sleep Disorders Ctr [facility] [address] [place] [address] Iliana Mix CRNP [address] [place] [address] EMILIE on CPAP*; Restless legs syndrome (RLS); Hypersomnia Allergies No known active allergiesdocumented as of [...] Date Smoking Tobacco: Never Smokeless Tobacco: Never Tobacco Cessation:Counseling Given: Not Answered Alcohol Use Standard Drinks/Week Comments Yes 0 [...] Sign Reading Time Taken Comments Blood Pressure 110/60 08/20/2023 8:23 AM EST Pulse 68 08/20/2023 8:23 AM EST Temperature 37.2 C (98.9 F) 08/20/2023 8:23 AM ES T Respiratory Rate 16 08/20/2023 8:23 AM EST Oxygen Saturation 97% 08/20/2023 8:23 AM EST Inhaled Oxygen Concentration - - Weight 79.4 kg (175 lb) 08/20/2023 8:23 AM EST Height 162.6 cm (5' 4") 08/20/2023 8:23 AM EST Body Mass Index 30.04 08/20/2023 8:23 AM EST documented in this encounter Progress Notes * Iliana Mix CRNP - 08/20/2023 8:34 AM EST [facility] Rosalie Newsome is a 62 year old female seen today for follow-up of EMILIE on replacement CPAP. Sleep Testing/History: Prior to treatment, reported loud snoring, nocturnal awakenings, non refreshing sleep, EDS (ESS 21/24) and fatigue. - HST 06/2015 (wt 161): ABELINO 9.6, SpO2 chino 86% - No benefit with gabapentin for RLS - Ferritin 10/12/2022: 87, transferrin 34% Interim History: CPAP used nightly, noting benefit with change to the new CPAP device. She's now waking more rested but still excessively tired in the afternoons. Denies unintentional dozing. May get tired driving but not drowsy. Overall improved. May nap over lunch when working from home and on the weekends. Naps are beneficial. No sleep related hallucinations, sleep paralysis or symptoms suggestive of cataplexy. Weight up 12 lbs in the last year. Significant knee pain. Ropinirole 0.5 mg taken around 30-45 minutes prior to bed which has resolved her movements and urgeto move once she is in bed. Denies side effects. No symptoms of augmentation. Having significant issues with her right knee and notes increased pain with urgency to move when inthe care. Received injection with some temp benefit. Anticipating gel injection next week. Minimal issues with her mask leaking at night. Sedentary at work. Stands at her desk. Tries to walk over lunch, outside. Caffeine: Diet Pepsi 36 oz/day, latest 1800 Alcohol: denies Nicotine: denies Compliance Data: Report date: last 30 days ending 08/18/2023 % total days used: 100 % days used > 4 hours: 100 Average hours per day used: 7 hours 40 mins Large leak: 11 L/min rAHI: 1.3 Pressures: median 9.6, p95% 11.4, max 11.8 Equipment: [facility] Provider: GSS Device: [id number] Settings: 8-12 cmH20 Interface Type: FFM Cleaning: By hand routinely [place] Sleepiness Scale Question 08/20/2023 8:22 AM EST - Filed by Arlene Henriquez LPN What is the chance you will doze off in the following situation? Sitting and reading High chance of dozing Watching TV Moderate chance of dozing Sitting inactive in a public place, such as a theater or meeting Slight chance of dozing As a passenger in a car for an hour without a break High chance of dozing Lying down to rest in the afternoon when circumstances permit High chance of dozing When sitting and talking to someone No chance of dozing When sitting quietly after lunch without alcohol Slight chance of dozing In a car, while stopped for a few minutes in traffic Slight chance of dozing Score (range: 0 - 24) 14 Problem List: Patient Active Problem List Diagnosis Code Migraine G43.909 Esophageal reflux K21.9 High triglycerides E78.1 EMILIE (obstructive sleep apnea) G47.33 Chronic rhinitis J31.0 Acquired hypothyroidism E03.9 S/P cervical spinal fusion Z98.1 Ruptured Bakers cyst M66.0 Lumbar disc herniation M51.26 EDSON (generalized anxiety disorder) F41.1 Pure hypercholesterolemia E78.00 Current Medications: Outpatient Medications Marked as Taking for the 08/20/23 encounter (Office Visit) with Iliana Mix CRNP Medication Sig valACYclovir HCl 500 MG Oral Tablet (Valtrex) Take 1 Tablet by mouth in the morning. Ibuprofen 600 MG Oral Tablet (Motrin) take 1 tablet by mouth three times a day Premarin 0.625 MG/GM Vaginal Cream (Estrogens Conjugated) Administer into the vagina at bedtime. Asdirected. Atorvastatin Calcium 40 MG Oral Tablet (Lipitor) Take 1 Tablet by mouth in the morning. buPROPion HCl ER (XL) 150 MG Oral Tablet Extended Release 24 Hour (Wellbutrin XL) Take 1 Tablet by mouth in the morning. Escitalopram Oxalate 10 MG Oral Tablet (Lexapro) Take 1 Tablet by mouth in the morning. Levothyroxine Sodium 88 MCG Oral Tablet (Levoxyl) Take 1 tablet daily six days a week and take 2 tablets daily one day a week.(at least 30 min prior to breakfast or other meds) rOPINIRole HCl 0.25 MG Oral Tablet (Requip) Take 1-2 tablets by mouth at bedtime for RLS/PLMD Multiple Vitamins-Calcium (ONE-A-DAY WOMENS FORMULA) Tablet Take 1 Tablet by mouth in the morning. OMEGA-3 FISH OIL 1000 MG PO CAPS Take one capsule by mouth twice a day NIACIN 500 MG PO TABS One pill by mouth two times a day Physical Exam: BP 110/60 | Pulse 68 | Temp 37.2 C (98.9 F) (Tympanic) | Resp 16 | Ht 1.626 m (5' 4") | Wt 79.4kg (175 lb) | LMP 09/19/2010 | SpO2 97% | BMI 30.04 kg/m | BSA 1.89 m Constitutional: Alert, oriented and in no acute distress Skin: No abnormal mask markings on face Chest: Normal respiratory effort at rest Neuro: Fluent speech Psych: Appropriate mood and affect. Assessment & Plan: Encounter Diagnoses Name Primary? EMILIE on CPAP Yes Restless legs syndrome (RLS) Hypersomnia Mild obstructive sleep apnea based on ABELINO criteria. She is compliant, therapeutic and benefiting with PAP treatment noting improvement with replacementCPAP device and change from setting 8 to auto 8-12. Change to auto CPAP 10-13 cm H2O to reflect starting at the median pressure. Continue ropinirole 0.5 mg 45 minutes prior to typical onset of RLS (bedtime). Noting benefit without worsened daytime somnolence. Titration study recommended to further assess given hypersomnia. Once her treatment of EMILIE / RLS isoptimized, consider use of wake promoting medicine for treatment of hypersomnia. Follow-up after titration study. [facility] I spent a total of 40-54 minutes (exact time 40 mins) on the date of service in preparation, delivery, and documentation of the care provided to Rosalie Newsome excluding any time spent in the performance of separately billed services. documented in this encounter Nursing Notes * Arlene Henriquez LPN - 08/20/2023 8:25 AM EST Chief Complaint Patient presents with Follow Up Here for return sleep. EMILIE. CPAP. DME[facility] Travel Screening Question 08/20/2023 8:14 AM EST - Filed by Patient Do you have any of the following new or worsening symptoms? None of these Have you recently been in contact with someone who was sick? No / Unsure [place] Sleepiness Scale Question 08/20/2023 8:22 AM EST - Filed by Arlene Henriquez LPN What is the chance you will doze off in the following situation? Sitting and reading High chance of dozing Watching TV Moderate chance of dozing Sitting inactive in a public place, such as a theater or meeting Slight chance of dozing As a passenger in a car for an hour without a break High chance of dozing Lying down to rest in the afternoon when circumstances permit High chance of dozing When sitting and talking to someone No chance of dozing When sitting quietly after lunch without alcohol Slight chance of dozing In a car, while stopped for a few minutes in traffic Slight chance of dozing Score (range: 0 - 24) 14 Flu Vaccine Questionnaire Question 08/20/2023 8:23 AM EST - Filed by Arlene Henriquez LPN Get your flu shot at your upcoming appointment. Please select one of the options below. I would like to discuss this with my clinician documented in this encounter Plan of Treatment Upcoming Encounters Date Type Department Care Team (Late st Contact Info) Description 08/29/2023 3:30 PM EST Office Visit Orthopaedics [facility] 132 [facility] [place] [address] Tenzin Medeiros PA-C [address] [place] [phone] 07/03/2024 10:00 AM EDT Office Visit [facility] [place] [address] Amie Barba, [address] [place] [address] 08/12/2025 3:00 PM EST Office Visit [address] [address] Elly Tomas PA-C [address] [place] [address] [place] [address] Scheduled Orders Name Type Priority Associated Diagnoses Orde r Schedule SLEEP STUDY, W/ CPAP (TREATMENT SETTINGS) Procedures Routine EMILIE on CPAP Restless legs syndrome (RLS) Hypersomnia Ordered: 08/20/2023 Scheduled Procedures Name Priority Associated Diagnoses Date/Ti [...] as of this encounter Visit Diagnoses Diagnosis EMILIE on CPAP- Primary Obstructive sleep apnea (adult) (pediatric) Restless legs syndrome (RLS) Hypersomnia Hypersomnia, unspecified documented in this encounter Care Teams General Practitioner Relationship Specialty Start Date End Date Amie Barba DO [address] [place] [address] PCP - General Family Medicine 12/09/18 documented as of this encounter
--- OUTSIDE RECORDS SUMMARY | 2024-02-09 20:59 | External Medical Summary | Summary of Care ---
Author Name Unknown Organization [facility] Address [address] [place] [address] Phone [phone] Care Team Providers Care Supervisor Mold Shop Name Role Phone Amie Barba Primary Care Provider Reason for Visit * Reason Comments Follow Up Left wrist Encounter Details Date Type Department Care Team (Late st Contact Info) Description 08/19/2023 9:15 AM EST Office Visit Orthopaedics [facility] [address] [facility] [place] [address] Rayray Frederick DO [address] [facility] [place] [address] Injury of left wrist, initial encounter* Allergies No known active allergiesdocumented as of [...] as of this encounter Progress Notes * Rayray Frederick, DO - 08/19/2023 9:15 AM EST Rosalie Newsome [id number] Rosalie Newsome is a 62 year old female who presents for f/u to [facility] for left wrist injury/pain f/u scaphoid Rosalie Newsome is here unaccompanied Date of injury: 07/26/23 Sport or Occupation: office Handedness: right History: as above had ADAM Pt was seen in convenient care note from 07/26/23 also reviewed TODAY:pain is now down to 4/10, feels like brace is rubbing akattila CT 08/08/23 IMPRESSION 1. No fracture. 2. 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 3. Scattered osteoarthritis, moderate at the basal and distal radioulnar joints. Patient has tried ibuprofen, tylenol, and wrist brace. Previous wrist injuries include: Possible left thumb 20+ yrs ago, unsure of details ROS EXAM: Constitional: No change in weight, No weakness, No fatigue, and No fevers, sweats, or chills Patient Active Problem List Diagnosis Code Migraine [...] 1 Tablet by mouth in the morning. Cyclobenzaprine HCl 5 MG Oral Tablet (Flexeril) Take by mouth 1 Tablet as needed before bedtime forMuscle spasms. (Patient not taking: Reported on 08/06/2023) 30 Tablet 0 Atorvastatin Calcium 40 MG Oral Tablet (Lipitor) [...] No current facility-administered medications for this visit. Physical Exam Peripheral pulses: normal Skin examination: minimal pain around scaphoid region Mood and Effect: normal Coordination: normal Sensation: normal Wrist exam, bilateral Inspection: no swelling noted at scaphoid/snuffbox on the Left Palpation: minimal tender to palpation at scaphoid/snuffbox Left Range of motion, bilateral: Flex - 80 degrees Bilateral Extension - 70 degrees Bilateral Radial deviation - 10 Left Ulnar deviation - 10 Left Numbness/Tingling: no Mendez test: NEGATIVE LEFT "Snuff Box" tenderness: NEGATIVE Strength: no deficits Assessment and Plan: stop brace, my chart 1 week update on pain and function Injury of left wrist, initial encounter (Primary) Rayray Frederick DO Primary Care Sports Medicine Orthopaedics [address] [address] documented in this encounter Nursing Notes * Patrice Rob MED ASSIST - 08/19/2023 9:15 AM EST Follow up left wrist pain. documented in this encounter Plan of Treatment Upcoming Encounters Date Type Department Care Team (Late st Contact Info) Description 08/20/2023 8:30 AM EST Office Visit Sleep Disorders Ctr [facility] 132 [facility] [place] [phone] Iliana Mix CRNP 132 [facility] [place] [address] 08/29/2023 3:30 PM EST Office Visit Orthopaedics [facility] 132 [facility] [place] [address] Tenzin Medeiros PA-C [address] [place] [address] [place] [address] 07/03/2024 10:00 AM EDT Office Visit Family Practice [facility] [address] [place] [address] Amie Barba, 200 [facility] [place] [address] 08/12/2025 3:00 PM EST Office Visit [address] [address] Elly Tomas PA-C [address] [place] [address] [place] [address] Scheduled Procedures Name Priority Associated Diagnoses Date/Ti [...] Primary documented in this encounter Care Teams Supervisor Mold Shop Relationship Specialty Start Date End Date Amie Barba DO [address] [place] [address] PCP - General Family Medicine 12/09/18 documented as of this encounter
--- OUTSIDE RECORDS SUMMARY | 2024-02-09 20:59 | External Medical Summary | Summary of Care ---
Author Name Unknown Organization [facility] Address [address] [place] [address] Phone [phone] Care Team Providers Care Fuel Yard Operator Name Role Phone Amie Barba Primary Care Provider Encounter Details Date Type Department Care Team (Late st Contact Info) Description 08/19/2023 Telephone Orthopaedics, [place] [facility] [place] [address] [place] [address] OsTenzin hernadez PA-C [address] [place] [address] [place] [phone] Allergies No known active allergiesdocumented as of [...] weeks (total of 3 injections). Route to [id number] Is there radiological proof(x-ray, cat scan, mri [...] supporting clinical information. Office Information: Prescriber: ana medeiros pa-c documented in this encounter Plan of Treatment Upcoming Encounters Date Type Department Care Team (Late st Contact Info) Description 08/20/2023 8:30 AM EST Office Visit [facility] [address] [place] [phone] Iliana Mix CRNP 132 [facility] [place] [address] 08/29/2023 3:30 PM EST Office Visit Orthopaedics [facility] [address] [place] [address] Tenzin Medeiros PA-C [address] [place] [address] 07/03/2024 10:00 AM EDT Office Visit [facility] 200 [facility] [place] [address] Amie Barba, DO [address] [place] [address] 08/12/2025 3:00 PM EST Office Visit Dermatology, [employer] [address] [facility] [place] [address] Elly Tomas, KENDALL [address] [place] [address] [place] [address] Scheduled Procedures Name Priority Associated Diagnoses Date/Ti [...] filedocumented as of this encounter Care Teams Fuel Yard Operator Relationship Specialty Start Date End Date Amie Barba DO [address] [place] [address] PCP - General Family Medicine 12/09/18 documented as of this encounter
--- OUTSIDE RECORDS SUMMARY | 2024-02-09 20:59 | External Medical Summary | Summary of Care ---
Author Name Unknown Organization [facility] Address [address] [place] [address] Phone [phone] Care Team Providers Care Bacteriology Professor Name Role Phone Amie Barba Primary Care Provider Reason for Visit * Reason Onset Date Comments Apnea Follow-up 08/23/2023 6 Month PAP Comp liance Encounter Details Date Type Department Care Team (Late st Contact Info) Description 08/23/2023 Telephone Sleep Lab [facility] [address] [place] [address] Tomasz Patel, TRIP FOLLOWER Apnea Follow-up (6 Month PAP Compliance ) Allergies No known active allergiesdocumented as of this encounter (statuses as of 08/23/2023) Medications Medication Sig Dispensed Refills Start Date [...] as of this encounter (statuses as of 08/23/2023) Active Problems Problem Noted Date Diagnosed Date EDSON (generalized anxiety disorder) 06/26/2021 Pure hypercholesterolemia 06/26/2021 Ruptured Bakers cyst 06/23/2019 Lumbar disc herniation 06/23/2019 S/P cervical spinal fusion 06/16/2018 Acquired hypothyroidism 06/07/2017 Chronic rhinitis 04/11/2017 EMILIE (obstructive sleep apnea) 08/17/2016 High triglycerides 04/21/2009 Esophageal reflux 09/07/2008 Migraine 01/16/2005 documented as of this encounter (statuses as of 08/23/2023) Resolved Problems Problem Noted Date Diagnosed Date Resolved Date Viral pharyngitis 04/11/2017 04/09/2018 Dyslipidemia, goal to be determined 09/15/2009 10/13/2013 Overview: Per Lipid Taxonomy. HYPOTHYROIDISM NOS 07/14/2009 6 Mixed dyslipidemia 04/21/2009 9 Overview: Per Lipid Taxonomy. ADVANCE DIRECTIVE INFORMATION 08/19/2006 06/16/2018 Overview: No, Advance Directive brochure given to patient at prior appointment. documented as of this encounter (statuses as of 08/23/2023) Immunizations Name Administration Dates Next Due COVID-19 [...] Miscellaneous Notes * Telephone Encounter - Tomasz Patel RRT - 08/23/2023 9:07 AM EST Good AutoPAP COMPLIANCE: We have received a Good compliance download from [facility] on 08/23/2023. It shows a 100% of use over 4 hours from 07/23/2023 to 08/21/2023. Average AHI of 1.2 with minimal leak. The pressure at 90% of time or greater is 11.4 cmH2O. This report will be scanned into the chart. documented in this encounter Plan of Treatment Upcoming Encounters Date Type Department Care Team (Late st Contact Info) Description 08/29/2023 3:30 PM EST Office Visit Orthopaedics [facility] 132 [facility] [place] [address] Tenzin Medeiros PA-C [address] [place] [address] 07/03/2024 10:00 AM EDT Office Visit [facility] 200 [facility] [place] [address] Amie Barba, 200 [facility] [place] [address] 08/12/2025 3:00 PM EST [address] [address] Elly Tomas PA-C [address] [place] [address] [place] [address] Scheduled Procedures Name Priority Associated Diagnoses Date/Ti [...] filedocumented as of this encounter Care Teams Bacteriology Professor Relationship Specialty Start Date End Date Amie Barba DO [address] [place] [address] PCP - General Family Medicine 12/09/18 documented as of this encounter
--- OUTSIDE RECORDS SUMMARY | 2024-02-09 20:59 | External Medical Summary | Summary of Care ---
Author Name Unknown Organization [facility] Address [address] [place] [address] Phone [phone] Care Team Providers Care Station Jailer Name Role Phone Amie Barba Primary Care Provider Reason for Visit * Reason Onset Date Comments Pre Cert/Prior Auth 08/19/2023 Euflexxa Encounter Details Date Type Department Care Team (Late st Contact Info) Description 08/19/2023 Telephone Orthopaedics, [address] Mary Brock [address] [place], [place] [phone] Tenzin Rausch PA-C [address] [place] [address] [place] [phone] Pre Cert/Prior Auth (Euflexxa) Allergies No known active allergiesdocumented as of [...] weeks (total of 3 injections). Route to [id number] Is there radiological proof(x-ray, cat scan, mri [...] AM EST Office Visit Sleep Disorders Ctr [facility] 132 [facility] [place] [phone] Iliana Mix CRNP 132 [facility] [place] [address] 08/29/2023 3:30 PM EST Office Visit Orthopaedics [facility] 132 [facility] [place] [address] Tenzin Rausch PA-C [address] [place] [address] 07/03/2024 10:00 AM EDT Office Visit [facility] 200 [facility] [place] [address] Amie Barba, 200 [facility] [place] [address] 08/12/2025 3:00 PM EST Office Visit [place] [address] [address] [facility] [place] [address] Elly Tomas PA-C [address] [place] [address] [place] [address] Scheduled Procedures Name Priority Associated Diagnoses Date/Ti [...] 10/22/2027 HPV/Co-Test 10/22/2027 10/22/2022 Colonoscopy 02/26/2029 02/26/2019, 05, 08/03/2008 Colorectal Cancer Screening 02/26/2029 DTaP,Tdap,and Td [...] filedocumented as of this encounter Care Teams Station Jailer Relationship Specialty Start Date End Date Amie Barba DO [address] [place] [address] PCP - General Family Medicine 12/09/18 documented as of this encounter
--- NOTE | 2024-02-09 21:06 | Emergency Department Note ---
History of Present Illness General Chief complaint: Flu Like Symptoms Stated complaint: FLU LIKE SX, PAIN ON R SIDE DOWN LEG Time Seen by Provider: 02/09/24 21:05 History of Present Illness Maximum Pain Intensity: 9 NAME: FERNANDEZ HOOK AGE: 63 SEX: F : 1960 ARRIVES VIA: Walk-In INFORMANT: Patient ED PROVIDER(S): JIMBO Beyer, Amando Holbrook MD The patient is a pleasant 63-year-old female who arrives to the emergency department for evaluation of abdominal pain, fever, sore throat, and flulike illness. She reports she was diagnosed with COVID a few weeks back, however she did recover from that illness. She states she has severe pain in her right lower quadrant, nausea, however no vomiting. She denies current diarrhea, however did have a history of some diarrhea a few days ago. She reports slight chest pain, and shortness of breath. Home Medications Medication Instructions Recorded Confirmed Type atorvastatin 40 mg tablet 40 mg PO QAM 05/12/19 02/09/24 History escitalopram oxalate 10 mg tablet 10 mg PO 05/12/19 02/09/24 History levothyroxine 88 mcg capsule 88 mcg PO QAM 05/12/19 02/09/24 History multivitamin 1 tab PO QAM 05/12/19 02/09/24 History niacin 500 mg tablet 500 mg PO BID 05/12/19 02/09/24 History valacyclovir 500 mg tablet 500 mg PO HS 05/12/19 02/09/24 History omega 1-vww-hzi-fish oil 1,000 mg 1 cap PO BID 04/11/20 02/09/24 History (120 mg-180 mg) capsule (Fish Oil) triamcinolone acetonide 0.1 % 1 applic topical BID #453.6 grams 02/20/23 02/09/24 Rx topical cream calcium carbonate (Calcium 600) 600 mg PO DAILY 02/09/24 02/09/24 History ropinirole 0.25 mg tablet 0.5 mg PO HS 02/09/24 02/09/24 History Allergies Allergy/AdvReac Type Severity Reaction Status Date / Time No Known Allergies Allergy Unknown Verified 02/09/24 23:20 Past Med/Surg History Medical History Chondromalacia of left knee Hypothyroidism Cardiac murmur "SLIGHT" NO CARDS Hyperlipidemia Sleep apnea CPAP Surgical History S/P meniscectomy Operation Date: 06/14/20 08:20 Actual Procedures p Left Knee Arthroscopy, Partial Medial and Lateral Meniscectomy, Trochlear Chondroplasty(Left) - Amandeep Beck Surgeon Amandeep Beck There was grade 34 chondromalacia affecting the central portion of the deep flexion zone of the trochlea. The medial meniscus had a radially oriented tear involving the inner 10 to 20% of the posterior horn of the medial meniscus which was debrided using meniscal punch and motorized shaver. The lateral meniscus had a complex frayed tear involving the majority of the body of the lateral meniscus that was radially oriented. This was debrided using meniscal punches and a motorized shaver. The trochlea was treated with removal of unstable flaps and formal chondroplasty. Fusion of spine CERVICAL (GOOD ROM) H/O foot surgery LEFT (TENDON) History of esophagogastroduodenoscopy (EGD) History of colonoscopy History of tooth extraction Family History Mother Family history of diabetes mellitus Other No family history of adverse response to anesthesia Social History Smoking Status: Never smoker Second Hand Exposure: No; Do You Dip or Chew Tobacco: No; Hx Alcohol Use: Yes Alcohol type: wine Hx Substance Use: No Preferred Language: Bengali Communication Ability: Effective [employer]ressed [employer]crete [employer]orer Required: No Beliefs That Will Affect Care: None Current Living Situation: Spouse Feels Safe at Home: Yes Assistive Devices: Contacts, CPAP and Glasses Physical Exam Vital Signs Vital Signs - 24 hr 02/09/24 20:53 02/09/24 21:08 02/09/24 21:15 Temperature 37.1 C 38.5 C H Temperature Source Temporal Artery Scan Oral Pulse Rate 109 H 98 H Pulse Rate [Apical] 102 H Respiratory Rate 18 19 Respiratory Effort / Characteristics Non-Labored Spontaneous Respiratory Depth Normal Respiratory Pattern Regular Blood Pressure 144/77 H Blood Pressure [Right Arm] 161/99 H Blood Pressure Mean 99 Blood Pressure Mean [Right Arm] 119 Blood Pressure Position Sitting Pulse Oximetry 95 95 Oxygen Delivery Method Room Air Room Air Sepsis Recent Fever Within 48 Hours Yes Sepsis New/Unexplained Change in Mental Status N/A Sepsis Action Taken by Nursing No Action Required 02/09/24 21:22 02/09/24 23:00 Temperature Temperature Source Pulse Rate Pulse Rate [Apical] 96 H Respiratory Rate 26 H Respiratory Effort / Characteristics Respiratory Depth Respiratory Pattern Blood Pressure Blood Pressure [Right Arm] 156/81 H Blood Pressure Mean Blood Pressure Mean [Right Arm] 106 Blood Pressure Position Pulse Oximetry 95 94 Oxygen Delivery Method Room Air Room Air Sepsis Recent Fever Within 48 Hours Sepsis New/Unexplained Change in Mental Status Sepsis Action Taken by Nursing VITALS: Tachycardia, febrile, hypertension, O2 sat 94% room air GENERAL: 63-year-old female, in no acute distress, nondiaphoretic, well- developed well-nourished. SKIN: The skin was without rashes, erythema, edema, or bruising. HEAD: Normocephalic atraumatic. EYES: Pupils equal round and reactive to light and accommodation. Conjunctivae without injection, sclerae without icterus. Extraocular movements intact. MOUTH: Mucous membranes moist. Pharynx without erythema or exudate. Uvula midline. Airway patent. Tongue does not deviate. NECK: Supple without nuchal rigidity. Cervical lymphadenopathy. HEART: Regular rate and rhythm without murmurs gallops or rubs. LUNGS: Clear to auscultation bilaterally without wheezes, rales or rhonchi. No retractions or accessory muscle use. ABDOMEN: Positive bowel sounds x 4. Soft, tender to palpation right lower quadrant, no rebound tenderness present, or guarding. MUSCULOSKELETAL: No muscle atrophy, erythema, or edema noted. Normal gait. Strength 5/5 throughout. NEURO: Patient was alert and oriented to person place and time. No focal neurological deficits. Course Administered Medications Sodium Chloride (Nss) 1,000 mls @ 125 mls/hr IV .Q8H [facility] Stop: 02/10/24 04:59 Last Admin: 02/09/24 21:26 Dose: Not Given Documented By: CHRISSIE Ceftriaxone Sodium (Rocephin) 1,000 mg in 50 mls @ 100 mls/hr IV Q24H [facility] Stop: 02/11/24 23:44 Last Admin: 02/10/24 00:07 Dose: 100 mls/hr Documented By: CHRISSIE Discontinued Medications Sodium Chloride (Nss) 1,000 mls @ 999 mls/hr IV .Q1H1M ONE Stop: 02/09/24 22:15 Last Infusion: 02/09/24 22:18 Dose: Infused Documented By: Admin: 02/09/24 21:26 Dose: 999 mls/hr Documented By: CHRISSIE Sodium Chloride (Nss) 1,000 mls @ 999 mls/hr IV .Q1H1M ONE Stop: 02/09/24 23:23 Last Infusion: 02/09/24 23:26 Dose: Infused Documented By: Admin: 02/09/24 22:31 Dose: 999 mls/hr Documented By: CHRISSIE Acetaminophen (Ofirmev) 1,000 mg in 100 mls @ 400 mls/hr IV NOW STA Stop: 02/09/24 22:55 Last Infusion: 02/09/24 23:11 Dose: Infused Documented By: Admin: 02/09/24 22:50 Dose: 400 mls/hr Documented By: CHRISSIE Ioversol (Optiray 320 100ml) 93 ml IV ONCE ONE Stop: 02/09/24 22:14 Last Admin: 02/09/24 22:14 Dose: 93 ml Documented By: GAVINO Morphine Sulfate (Morphine Sulfate 4 Mg/Ml 1 Ml Carp\\Vial) 4 mg IV NOW STA Stop: 02/09/24 23:50 Last Admin: 02/10/24 00:07 Dose: 4 mg Documented By: CHRISSIE Medical Decision Making Differential Diagnosis Viral syndrome, otitis, pharyngitis, pneumonia, influenza, meningitis, urinary tract infection, sepsis, bacteremia, as well as other pathologies. Medical Records Attestation: I reviewed the patient's medical records. Home Medications Current Medication List: was personally reviewed by me Laboratory Data Attestation: I reviewed the patient's lab results. Leukocytosis 13.75, stable hemoglobin and hematocrit, no electrolyte abnormalities, lactate 2.4, urinalysis shows 2+ leukocyte esterase. Upper respiratory viral panel negative, group A strep positive. 02/09/24 21:24 02/09/24 21:24 Lab Results 02/09/24 02/09/24 02/09/24 Range/Units 21:24 21:26 21:33 WBC 13.75 H (4.8-10.8) K/ul RBC 4.08 L (4.20-5.40) M/uL Hgb 12.7 (12.0-16.0) g/dl Hct 37.0 (37.0-47.0) % MCV 90.7 (80.0-100.0) fL MCH 31.1 (25.0-34.0) pg MCHC 34.3 (32.0-36.0) g/dL RDW Std Deviation 42.5 (36.4-46.3) fL RDW Coeff of Charlie 12.9 (11.5-14.5) % Plt Count 250 (130-400) K/uL MPV 9.5 (9.4-12.4) fL Immature Gran % (Auto) 0.5 % Neut % (Auto) 83.0 % Lymph % (Auto) 10.1 % Sampson % (Auto) 6.0 % Eos % (Auto) 0.0 % Baso % (Auto) 0.4 % Neut # (Auto) 11.41 H (1.40-6.50) K/uL Lymph # (Auto) 1.39 (1.20-3.40) K/uL Sampson # (Auto) 0.82 H (0.11-0.59) K/uL Eos # (Auto) 0.00 (0.00-0.50) K/uL Baso # (Auto) 0.06 (0.00-0.20) K/uL Immature Gran # (Auto) 0.07 (0.01-0.20) K/uL Sodium 136 (136-145) mmol/L Potassium 3.7 (3.5-5.1) mmol/L Chloride 102 (98-107) mmol/L Carbon Dioxide 24 (21-32) mmol/L Anion Gap 10 (3-11) BUN 11 (6-23) mg/dl Creatinine 0.80 (0.6-1.2) mg/dl Est Cr Clr Drug Dosing 73.5 ml/min Est GFR ( Amer) 90.9 ml/min Est GFR (Non-Af Amer) 78.5 ml/min BUN/Creatinine Ratio 13.8 (10-20) Glucose 116 H (70-99(Fasting)) mg/dl Lactate 2.4 H* (0.4-2.0) mmol/L Calcium 9.5 (8.6-10.3) mg/dl Magnesium 2.0 (1.7-2.4) mg/dl Total Bilirubin 0.4 (0.2-1.0) mg/dl Direct Bilirubin 0.1 (0-0.2) mg/dl AST 19 (13-39) U/L ALT 22 (7-52) U/L Alkaline Phosphatase 65 (34-104) U/L Troponin I High Sens 4.8 (0-14) pg/ml Total Protein 7.8 (6.0-8.3) gm/dl Albumin 4.5 (3.4-5.0) gm/dl Globulin 3.3 (2.5-4.0) gm/dl Albumin/Globulin Ratio 1.4 (0.9-2) Procalcitonin 0.04 (0-0.5) ng/ml TSH 0.649 (0.300-4.500) uIu/ml Urine Color Yellow Urine Appearance Clear (Clear) Urine pH 7.0 (4.5-7.5) Ur Specific [place] 1.014 (1.000-1.030) Urine Protein Negative (Negative) Urine Glucose (UA) Negative (Negative) Urine Ketones Negative (Negative) Urine Blood Trace H (Negative) Urine Nitrite Negative (Negative) Urine Bilirubin Negative (Negative) Urine Urobilinogen Negative (Negative) Ur Leukocyte Esterase 2+ H (Negative) Urine WBC (Auto) 11-20 H (0-5) /hpf Urine RBC (Auto) 0-2 (0-2) /hpf U Hyaline Cast (Auto) 0-2 (0-2) /lpf U Epithel Cells (Auto) 0-2 (0-2) /hpf Urine Bacteria (Auto) None Seen (None Seen) Adenovirus (PCR) Not Detected (NotDetected) B. pertussis DNA (PCR) Not Detected (NotDetected) B.parapertussis DNA PCR Not Detected (NotDetected) C. pneumoniae DNA (PCR) Not Detected (NotDetected) Coronavirus OC43 (PCR) Not Detected (NotDetected) Coronavirus HKU1 (PCR) Not Detected (NotDetected) Coronavirus 229E (PCR) Not Detected (NotDetected) SARS-CoV-2 (PCR) Not Detected (NotDetected) Coronavirus NL63 (PCR) Not Detected (NotDetected) Human Metapneumovir PCR Not Detected (NotDetected) Influenza Type A (PCR) Not Detected (NotDetected) Influenza Type B (PCR) Not Detected (NotDetected) M. pneumoniae (PCR) Not Detected (NotDetected) Parainfluenza 1 (PCR) Not Detected (NotDetected) Parainfluenza 2 (PCR) Not Detected (NotDetected) Parainfluenza 3 (PCR) Not Detected (NotDetected) Parainfluenza 4 (PCR) Not Detected (NotDetected) RSV (PCR) Not Detected (NotDetected) Entero/Rhino (PCR) Not Detected (NotDetected) Group A Strep (PCR) (NotDetected) 02/09/24 02/09/24 Range/Units 22:56 23:30 WBC (4.8-10.8) K/ul RBC (4.20-5.40) M/uL Hgb (12.0-16.0) g/dl Hct (37.0-47.0) % MCV (80.0-100.0) fL MCH (25.0-34.0) pg MCHC (32.0-36.0) g/dL RDW Std Deviation (36.4-46.3) fL RDW Coeff of Charlie (11.5-14.5) % Plt Count (130-400) K/uL MPV (9.4-12.4) fL Immature Gran % (Auto) % Neut % (Auto) % Lymph % (Auto) % Sampson % (Auto) % Eos % (Auto) % Baso % (Auto) % Neut # (Auto) (1.40-6.50) K/uL Lymph # (Auto) (1.20-3.40) K/uL Sampson # (Auto) (0.11-0.59) K/uL Eos # (Auto) (0.00-0.50) K/uL Baso # (Auto) (0.00-0.20) K/uL Immature Gran # (Auto) (0.01-0.20) K/uL Sodium (136-145) mmol/L Potassium (3.5-5.1) mmol/L Chloride (98-107) mmol/L Carbon Dioxide (21-32) mmol/L Anion Gap (3-11) BUN (6-23) mg/dl Creatinine (0.6-1.2) mg/dl Est Cr Clr Drug Dosing ml/min Est GFR ( Amer) ml/min Est GFR (Non-Af Amer) ml/min BUN/Creatinine Ratio (10-20) Glucose (70-99(Fasting)) mg/dl Lactate 1.2 (0.4-2.0) mmol/L Calcium (8.6-10.3) mg/dl Magnesium (1.7-2.4) mg/dl Total Bilirubin (0.2-1.0) mg/dl Direct Bilirubin (0-0.2) mg/dl AST (13-39) U/L ALT (7-52) U/L Alkaline Phosphatase (34-104) U/L Troponin I High Sens (0-14) pg/ml Total Protein (6.0-8.3) gm/dl Albumin (3.4-5.0) gm/dl Globulin (2.5-4.0) gm/dl Albumin/Globulin Ratio (0.9-2) Procalcitonin (0-0.5) ng/ml TSH (0.300-4.500) uIu/ml Urine Color Urine Appearance (Clear) Urine pH (4.5-7.5) Ur Specific [place] (1.000-1.030) Urine Protein (Negative) Urine Glucose (UA) (Negative) Urine Ketones (Negative) Urine Blood (Negative) Urine Nitrite (Negative) Urine Bilirubin (Negative) Urine Urobilinogen (Negative) Ur Leukocyte Esterase (Negative) Urine WBC (Auto) (0-5) /hpf Urine RBC (Auto) (0-2) /hpf U Hyaline Cast (Auto) (0-2) /lpf U Epithel Cells (Auto) (0-2) /hpf Urine Bacteria (Auto) (None Seen) Adenovirus (PCR) (NotDetected) B. pertussis DNA (PCR) (NotDetected) B.parapertussis DNA PCR (NotDetected) C. pneumoniae DNA (PCR) (NotDetected) Coronavirus OC43 (PCR) (NotDetected) Coronavirus HKU1 (PCR) (NotDetected) Coronavirus 229E (PCR) (NotDetected) SARS-CoV-2 (PCR) (NotDetected) Coronavirus NL63 (PCR) (NotDetected) Human Metapneumovir PCR (NotDetected) Influenza Type A (PCR) (NotDetected) Influenza Type B (PCR) (NotDetected) M. pneumoniae (PCR) (NotDetected) Parainfluenza 1 (PCR) (NotDetected) Parainfluenza 2 (PCR) (NotDetected) Parainfluenza 3 (PCR) (NotDetected) Parainfluenza 4 (PCR) (NotDetected) RSV (PCR) (NotDetected) Entero/Rhino (PCR) (NotDetected) Group A Strep (PCR) DETECTED A (NotDetected) Imaging Data Attestation: I personally reviewed and interpreted this imaging study as follows: My Impression: Initial x-ray interpretation per myself shows no acute cardiopulmonary process. Radiologist's Impression: Abdomen/Pelvis CT 02/09/24 21:15 Exam(s): CT ABDOMEN + PELVIS With Contrast IV Amt: OPTIRAY 320 93ML EXAM: CT Abdomen and Pelvis With Intravenous Contrast CLINICAL HISTORY: Reason for exam: abdomen pain, RLQ. TECHNIQUE: Axial computed tomography images of the abdomen and pelvis with intravenous contrast. CTDI is 26.53 mGy and DLP is 1315.35 mGy-cm. Automated exposure control was utilized for the study. A dose lowering technique was utilized adhering to the principles of ALARA. CONTRAST: Patient received OPTIRAY 320 93ML of IV contrast COMPARISON: No relevant prior studies available. FINDINGS: Lung bases: Unremarkable. No mass. No consolidation. ABDOMEN: Liver: Fatty infiltration of liver. Gallbladder and bile ducts: Unremarkable. No calcified stones. No ductal dilation. Pancreas: Unremarkable. No mass. No ductal dilation. Spleen: Unremarkable. No splenomegaly. Adrenals: Unremarkable. No mass. Kidneys and ureters: Unremarkable. No solid mass. No hydronephrosis. Stomach and bowel: Prominent though not pathologically enlarged loops of small bowel within the left lower quadrant with subtle mural hyperemia. Findings may represent enteritis in the appropriate clinical setting. Spleen is unremarkable. Remaining solid abdominal organs are within normal limits. PELVIS: Appendix: No findings to suggest acute appendicitis. Bladder: Unremarkable. No mass. Reproductive: Unremarkable as visualized. ABDOMEN and PELVIS: Intraperitoneal space: Unremarkable. No free air. No significant fluid collection. Bones/joints: No acute fracture. No dislocation. Soft tissues: Unremarkable. Vasculature: Unremarkable. No abdominal aortic aneurysm. Lymph nodes: Unremarkable. No enlarged lymph nodes. IMPRESSION: Findings suggestive of small bowel enteritis. Electronically signed by: Greg Thrasher MD 02/09/24 22:27 PM ECG Data Attestation: I personally reviewed and interpreted this ECG as follows: Indication: + abdominal pain and + chest pain Rate (beats per minute): 98 Rhythm: + normal sinus ECG [place]: + Normal ECG ST segments: + Normal ST segments Comparison ECG Date: from (06/09/20) Change: the following changes noted (Increased ventricular rate) Blood Pressure Blood Pressure Findings: Elevated blood pressure Blood Pressure Disposition: elevated BP felt to be situational MDM Narrative The patient is a 63-year-old female who arrives to the emergency department with her for the above-stated complaint. Upon examination the patient appears ill, she reports sore throat, chest pain, shortness of breath, abdominal pain, nausea and fever. Abdominal pain specifically in the right lower quadrant, she has tenderness to palpation on exam. A saline lock was placed, CBC, CMP, lipase, lactate, TSH, troponin were obtained. CBC shows leukocytosis, CMP was reassuring, lipase TSH and troponin were negative. Lactate resulted at 2.4. The patient was provided 2 L of IV normal saline bolus. Urinalysis shows positive for 2+ leukocyte esterase, the patient is not currently symptomatic. EKG was obtained which showed normal sinus at a rate of 98, no ST elevation, depression, or ectopy. CT imaging of the abdomen and pelvis was obtained which showed a small bowel enteritis. The patient does report a recent diarrheal state, however she does not currently have diarrhea. I did speak with the patient regarding the state of her illness, and recommended admission with IV antibiotic treatment. She was provided with a dose of IV Rocephin in the emergency department, as well as 4 mg of morphine for pain. Case management was contacted regarding patient admission. Dr. Zaidi from [facility] service agreed to accept the patient for admission. Please refer to Dr. Zaidi's documentation for further patient care. The patient's case was discussed with Dr. Holbrook, who agreed with my evaluation and treatment plan. Continuous quality assurance monitor final: Order was placed for continuous quality assurance monitor final. Patient was placed on the quality assurance monitor final. Patient was noted to be in sinus tachycardia at an initial rate of 102 bpm. Impression & Plan Pharyngitis, Enteritis, Fever Discharge Plan Visit Data Chief Complaint: Flu Like Symptoms Stated Complaint: FLU LIKE SX, PAIN ON R SIDE DOWN LEG ED Provider: Amando Holbrook ED Midlevel Provider: Melba Goodrich Discharge Problem: Pharyngitis, Enteritis, Fever Forms Stand Alone Forms: My [facility] Prescriptions Prescriptions: No Action atorvastatin 40 mg tablet 40 mg PO QAM escitalopram oxalate 10 mg tablet 10 mg PO HS niacin 500 mg tablet 500 mg PO BID valacyclovir 500 mg tablet 500 mg PO HS levothyroxine 88 mcg capsule 88 mcg PO QAM multivitamin tablet 1 tab PO QAM triamcinolone acetonide 0.1 % cream 1 applic topical BID Qty: 453.6 0RF Rx Instructions: Apply to the chest, stomach, arms/legs BID for 2-3 weeks for itching/burning. omega 2-ruk-iag-fish oil [Fish Oil] 1,000 mg (120 mg-180 mg) Capsule 1 cap PO BID calcium carbonate [Calcium 600] 600 mg calcium (1,500 mg) Tablet 600 mg PO DAILY ropinirole 0.25 mg tablet 0.5 mg PO HS Referrals Referrals: Amie Barba DO [Primary Care Provider] - Discharge Problem: Pharyngitis Qualifiers: Pharyngitis/tonsillitis etiology: streptococcus Qualified Code(s): J02.0 - Streptococcal pharyngitis Fever Qualifiers: Fever type: unspecified Qualified Code(s): R50.9 - Fever, unspecified
[2024-02-09] MEDS: SODIUM CHLORIDE 0.9% 1,000 ML IV SCH (21:26)
[2024-02-09] MEDS: SODIUM CHLORIDE 0.9% 1,000 ML IV ONE ×2 (21:26→22:31)
[2024-02-09 21:57] LABS: Basophils # (auto) 0.06 K/uL (0.00-0.20); Basophils % (auto) 0.4 %; Hemoglobin 12.7 g/dl (12.0-16.0); Immature Granulocytes # (auto) 0.07 K/uL (0.01-0.20); Immature Granulocytes % (auto) 0.5 %; Lymphocytes # (auto) 1.39 K/uL (1.20-3.40); Lymphocytes % (auto) 10.1 %; Mean Corpuscular Hemoglobin 31.1 pg (25.0-34.0); Mean Corpuscular Hgb Conc 34.3 g/dL (32.0-36.0); Mean Corpuscular Volume 90.7 fL (80.0-100.0); Mean Platelet Volume 9.5 fL (9.4-12.4); Monocytes # (auto) 0.82 K/uL (0.11-0.59); Neutrophils # (auto) 11.41 K/uL (1.40-6.50); Platelet Count 250 K/uL (130-400); RDW Coefficient of Variation 12.9 % (11.5-14.5); RDW Standard Deviation 42.5 fL (36.4-46.3); Red Blood Count 4.08 M/uL (4.20-5.40); White Blood Count 13.75 K/ul (4.8-10.8)
[2024-02-09 22:06] LABS: Albumin Globulin Ratio 1.4 (0.9-2); Albumin Level 4.5 gm/dl (3.4-5.0); BUN Creatinine Ratio 13.8 (10-20); Bilirubin Direct 0.1 mg/dl (0-0.2); Bilirubin,Total 0.4 mg/dl (0.2-1.0); Calcium 9.5 mg/dl (8.6-10.3); Creatinine Clr Calc Pharmacy 73.5 ml/min; Est GFR (African American) 90.9 ml/min; Est GFR (Non-African American) 78.5 ml/min; Globulin 3.3 gm/dl (2.5-4.0); Potassium 3.7 mmol/L (3.5-5.1); Total Protein 7.8 gm/dl (6.0-8.3)
[2024-02-09 22:12] LABS: Troponin I High Sensitivity 4.8 pg/ml (0-14)
[2024-02-09] MEDS: OPTIRAY 320 100ml IV ONE (22:14)
[2024-02-09 22:16] LABS: Appearance Urine Clear (Clear); Bacteria Urine Automated None Seen (None Seen); Bilirubin Urine Negative (Negative); Blood Urine Trace (Negative); Cast Urine Automated 0-2 /lpf (0-2); Color Urine Yellow; Epithelial Cell Urine Auto 0-2 /hpf (0-2); Glucose Urine UA Negative (Negative); Ketones Urine Negative (Negative); Leukocyte Esterase Urine 2+ (Negative); Nitrite Urine Negative (Negative); Protein Urine Negative (Negative); RBC Urine Automated 0-2 /hpf (0-2); Specific Gravity Urine 1.014 (1.000-1.030); Urobilinogen Urine Negative (Negative)
[2024-02-09 22:21] LABS: Thyroid Stimulating Hormone 0.649 uIu/ml (0.300-4.500)
--- NOTE | 2024-02-09 22:28 | CT Scan Report ---
Exam(s): CT ABDOMEN + PELVIS With Contrast IV Amt: OPTIRAY 320 93ML EXAM: CT Abdomen and Pelvis With Intravenous Contrast CLINICAL HISTORY: Reason for exam: abdomen pain, RLQ. TECHNIQUE: Axial computed tomography images of the abdomen and pelvis with intravenous contrast. CTDI is 26.53 mGy and DLP is 1315.35 mGy-cm. Automated exposure control was utilized for the study. A dose lowering technique was utilized adhering to the principles of ALARA. CONTRAST: Patient received OPTIRAY 320 93ML of IV contrast COMPARISON: No relevant prior studies available. FINDINGS: Lung bases: Unremarkable. No mass. No consolidation. ABDOMEN: Liver: Fatty infiltration of liver. Gallbladder and bile ducts: Unremarkable. No calcified stones. No ductal dilation. Pancreas: Unremarkable. No mass. No ductal dilation. Spleen: Unremarkable. No splenomegaly. Adrenals: Unremarkable. No mass. Kidneys and ureters: Unremarkable. No solid mass. No hydronephrosis. Stomach and bowel: Prominent though not pathologically enlarged loops of small bowel within the left lower quadrant with subtle mural hyperemia. Findings may represent enteritis in the appropriate clinical setting. Spleen is unremarkable. Remaining solid abdominal organs are within normal limits. PELVIS: Appendix: No findings to suggest acute appendicitis. Bladder: Unremarkable. No mass. Reproductive: Unremarkable as visualized. ABDOMEN and PELVIS: Intraperitoneal space: Unremarkable. No free air. No significant fluid collection. Bones/joints: No acute fracture. No dislocation. Soft tissues: Unremarkable. Vasculature: Unremarkable. No abdominal aortic aneurysm. Lymph nodes: Unremarkable. No enlarged lymph nodes. IMPRESSION: Findings suggestive of small bowel enteritis. Electronically signed by: Greg Thrasher MD 02/09/24 22:27 PM
[2024-02-09] MEDS: ACETAMINOPHEN 1,000 MG/100 ML VIAL IV STA (22:50)
[2024-02-09 23:16] LABS: Adenovirus PCR Not Detected (NotDetected); Bordetella parapertussis PCR Not Detected (NotDetected); Bordetella pertussis PCR Not Detected (NotDetected); Chlamydia pneumoniae PCR Not Detected (NotDetected); Coronavirus 229E PCR Not Detected (NotDetected); Coronavirus CoV-2 (COVID19)PCR Not Detected (NotDetected); Coronavirus HKU1 PCR Not Detected (NotDetected); Coronavirus NL63 PCR Not Detected (NotDetected); Coronavirus OC43PCR Not Detected (NotDetected); Human Metapneumovirus PCR Not Detected (NotDetected); Influenza A PCR Not Detected (NotDetected); Influenza B PCR Not Detected (NotDetected); Mycoplasma pneumoniae PCR Not Detected (NotDetected); Parainfluenza Virus 1 PCR Not Detected (NotDetected); Parainfluenza Virus 2 PCR Not Detected (NotDetected); Parainfluenza Virus 3 PCR Not Detected (NotDetected); Parainfluenza Virus 4 PCR Not Detected (NotDetected); Respiratory Syncytial VirusPCR Not Detected (NotDetected); Rhinovirus/Enterovirus PCR Not Detected (NotDetected)
[2024-02-10] MEDS: cefTRIAXone SODIUM 1,000 MG/50 ML BAG IV SCH (00:07)
[2024-02-10] MEDS: MoRPHine SULFATE 4 MG/ML 1 ML CARP\\VIAL IV STA (00:07)
--- NOTE | 2024-02-10 01:03 | History & Physical Report ---
Date of Service February 10, 2024 Assessment & Plan (1) Strep throat: Plan: 63-year-old female with past med history significant for high triglycerides, hypothyroidism, obstructive sleep apnea, chronic rhinitis, GERD, osteoarthritis, migraine, general anxiety disorder presents with fevers, right lower quadrant abdominal pain and sore throat and chest tightness. Patient states last night she developed fevers and chills also right lower quadrant abdominal pain and she thought she might having appendicitis. Today morning she also got sore throat and some chest tightness which prompted her to come to the ER. In ER she had temp spike. Strep came back positive. UA is positive. CT scan showing possible small bowel enteritis. Denies any diarrhea. Normal micturition. Denies blood in the stools or black stools. Denies hematuria. On and off shortness of breath. On and off chest tightness since last night. Has occasional cough. No runny nose. Has headache. Vision is okay. Strep throat Fevers ER started on Rocephin which will be continued Will monitor UTI On Rocephin Initial lactic acid 2.4 repeat is 1.2 IV fluids Will follow cultures Abdominal pain Right lower quadrant CT scan showing possible small bowel enteritis has some nausea Initial lactic acid 2.4 repeat is 1.2 Clears for now Will monitor Chest tightness Initial EKG and troponin unremarkable Will follow serial enzymes and echo and repeat EKG If any concerns will consult cardiology EMILIE on cpap High triglycerides on statin EDSON on lexapro. restless legs on ropinirole Hypothyroidism on Synthroid DVt px Lovenox Disposition med/tele Full code. History of Present Illness Chief Complaint: Fevers, abdominal pain and sore throat Primary Care Provider: Amie Barba DO 63-year-old female with past med history significant for high triglycerides, hypothyroidism, obstructive sleep apnea, chronic rhinitis, GERD, osteoarthritis, migraine, general anxiety disorder presents with fevers, right lower quadrant abdominal pain and sore throat and chest tightness. Patient states last night she developed fevers and chills also right lower quadrant abdominal pain and she thought she might having appendicitis. Today morning she also got sore throat and some chest tightness which prompted her to come to the ER. In ER she had temp spike. Strep came back positive. UA is positive. CT scan showing possible small bowel enteritis. Denies any diarrhea. Normal micturition. Denies blood in the stools or black stools. Denies hematuria. On and off shortness of breath. On and off chest tightness since last night. Has occasional cough. No runny nose. Has headache. Vision is okay. Past medical history. As mentioned above Past surgical history. Right carpal tunnel surgery. Colonoscopy and EGD with biopsy. Left foot tendon surgery. Knee arthroscopy left side. Social history. . No smoking. Alcohol rare. No drug use. Family history. Mother had diabetes. Obesity. Brother had high cholesterol. Father had Lewy body disease. Allergies Allergy/AdvReac Type Severity Reaction Status Date / Time No Known Allergies Allergy Unknown Verified 02/09/24 23:20 Home Medications Medication Instructions Recorded Confirmed Type atorvastatin 40 mg tablet 40 mg PO QAM 05/12/19 02/09/24 History escitalopram oxalate 10 mg tablet 10 mg PO HS 05/12/19 02/09/24 History levothyroxine 88 mcg capsule 88 mcg PO QAM 05/12/19 02/09/24 History multivitamin 1 tab PO QAM 05/12/19 02/09/24 History niacin 500 mg tablet 500 mg PO BID 05/12/19 02/09/24 History valacyclovir 500 mg tablet 500 mg PO HS 05/12/19 02/09/24 History omega 1-ati-ptb-fish oil 1,000 mg 1 cap PO BID 04/11/20 02/09/24 History (120 mg-180 mg) capsule (Fish Oil) triamcinolone acetonide 0.1 % 1 applic topical BID #453.6 grams 02/20/23 02/09/24 Rx topical cream calcium carbonate (Calcium 600) 600 mg PO DAILY 02/09/24 02/09/24 History ropinirole 0.25 mg tablet 0.5 mg PO HS 02/09/24 02/09/24 History Past Med/Surg History Medical History Chondromalacia of left knee Hypothyroidism Cardiac murmur "SLIGHT" NO CARDS Hyperlipidemia Sleep apnea CPAP Surgical History S/P meniscectomy Operation Date: 06/14/20 08:20 Actual Procedures p Left Knee Arthroscopy, Partial Medial and Lateral Meniscectomy, Trochlear Chondroplasty(Left) - Amandeep Beck Surgeon Amandeep Beck There was grade 34 chondromalacia affecting the central portion of the deep flexion zone of the trochlea. The medial meniscus had a radially oriented tear involving the inner 10 to 20% of the posterior horn of the medial meniscus which was debrided using meniscal punch and motorized shaver. The lateral meniscus had a complex frayed tear involving the majority of the body of the lateral meniscus that was radially oriented. This was debrided using meniscal punches and a motorized shaver. The trochlea was treated with removal of unstable flaps and formal chondroplasty. Fusion of spine CERVICAL (GOOD ROM) H/O foot surgery LEFT (TENDON) History of esophagogastroduodenoscopy (EGD) History of colonoscopy History of tooth extraction Family History Mother Family history of diabetes mellitus Other No family history of adverse response to anesthesia Social History Smoking Status: Never smoker Second Hand Exposure: No; Do You Dip or Chew Tobacco: No; Hx Alcohol Use: Yes Alcohol type: wine Hx Substance Use: No Preferred Language: Persian Communication Ability: Effective Health Program Specialist Required: No Beliefs That Will Affect Care: None Current Living Situation: Spouse Feels Safe at Home: Yes Safety Concerns: Feels Safe At This Time Assistive Devices: Contacts, CPAP and Glasses Review of Systems Review of Systems: All systems reviewed & are unremarkable except as noted in HPI & below Physical Exam Physical Exam: General- Not in distress Head- atraumatic Eyes- PERRL. ENT- oropharynx clear Neck- supple, no JVD. Lungs- clear to auscultation no wheezing or crackles. Heart- regular rate and rhythm; no murmur, no gallop. Abdomen- normal bowel sounds, soft, tenderness in RLQ, no rebound tenderness, no distension. Extremities- no pretibial edema, no erythema seen. Neuro- alert, oriented PERRL,no facial palsy; no dysarthria; moves extremities. Results & Data Results & Data Vital Signs (Past 12 Hours) Vital Signs Temp Pulse Pulse Resp BP BP Pulse Ox 02/09/24 23:00 96 H 26 H 156/81 H 94 02/09/24 21:22 95 02/09/24 21:15 98 H 02/09/24 21:08 38.5 C H 102 H 19 161/99 H 95 02/09/24 20:53 37.1 C 109 H 18 144/77 H 95 O2 Del Method 02/09/24 23:00 Room Air 02/09/24 21:22 Room Air 02/09/24 21:15 02/09/24 21:08 Room Air 02/09/24 20:53 Room Air Diagnostic Findings Laboratory Results WBC 13.75 K/ul (4.8-10.8) H 02/09/24 21:24 RBC 4.08 M/uL (4.20-5.40) L 02/09/24 21:24 Hgb 12.7 g/dl (12.0-16.0) 02/09/24 21: Hct 37.0 % (37.0-47.0) 02/09/24 21:24 MCV 90.7 fL (80.0-100.0) 02/09/24 21:24 MCH 31.1 pg (25.0-34.0) 02/09/24 21:24 MCHC 34.3 g/dL (32.0-36.0) 02/09/24 21: RDW Std Deviation 42.5 fL (36.4-46.3) 02/09/24 21: RDW Coeff of Charlie 12.9 % (11.5-14.5) 02/09/24 21: Plt Count 250 K/uL (130-400) 02/09/24 21: MPV 9.5 fL (9.4-12.4) 02/09/24 21:24 Immature Gran % (Auto) 0.5 % 02/09/24 21:24 Neut % (Auto) 83.0 % 02/09/24 21: Lymph % (Auto) 10.1 % 02/09/24 21: [place] % (Auto) 6.0 % 02/09/24 21:24 Eos % (Auto) 0.0 % 02/09/24 21:24 Baso % (Auto) 0.4 % 02/09/24 21:24 Neut # (Auto) 11.41 K/uL (1.40-6.50) H 05/12/24 21:24 Lymph # (Auto) 1.39 K/uL (1.20-3.40) 02/09/24 21:24 [place] # (Auto) 0.82 K/uL (0.11-0.59) H 02/09/24 21:24 Eos # (Auto) 0.00 K/uL (0.00-0.50) 02/09/24 21:24 Baso # (Auto) 0.06 K/uL (0.00-0.20) 02/09/24 21:24 Immature Gran # (Auto) 0.07 K/uL (0.01-0.20) 02/09/24 21:24 Sodium 136 mmol/L (136-145) 02/09/24 21:24 Potassium 3.7 mmol/L (3.5-5.1) 02/09/24 21:24 Chloride 102 mmol/L (98-107) 02/09/24 21:24 Carbon Dioxide 24 mmol/L (21-32) 02/09/24 21:24 Anion Gap 10 (3-11) 02/09/24 21:24 BUN 11 mg/dl (6-23) 02/09/24 21:24 Creatinine 0.80 mg/dl (0.6-1.2) 02/09/24 21:24 Est Cr Clr Drug Dosing 73.5 ml/min 02/09/24 21:24 Est GFR ( Amer) 90.9 ml/min 02/09/24 21:24 Est GFR (Non-Af Amer) 78.5 ml/min 02/09/24 21:24 BUN/Creatinine Ratio 13.8 (10-20) 02/09/24 21:24 Glucose 116 mg/dl (70-99(Fasting)) H 02/09/24 21:24 Lactate 1.2 mmol/L (0.4-2.0) 02/09/24 23:30 Calcium 9.5 mg/dl (8.6-10.3) 02/09/24 21:24 Magnesium 2.0 mg/dl (1.7-2.4) 02/09/24 21:24 Total Bilirubin 0.4 mg/dl (0.2-1.0) 02/09/24 21:24 Direct Bilirubin 0.1 mg/dl (0-0.2) 02/09/24 21: AST 19 U/L (13-39) 02/09/24 21: ALT 22 U/L (7-52) 02/09/24 21: Alkaline Phosphatase 65 U/L (34-104) 02/09/24 21: Troponin I High Sens 4.8 pg/ml (0-14) 02/09/24 21: Total Protein 7.8 gm/dl (6.0-8.3) 02/09/24: Albumin 4.5 gm/dl (3.4-5.0) 02/09/24: Globulin 3.3 gm/dl (2.5-4.0) 02/09/24: Albumin/Globulin Ratio 1.4 (0.9-2) 02/09/24: Procalcitonin 0.04 ng/ml (0-0.5) 02/09/24: TSH 0.649 uIu/ml (0.300-4.500) 02/09/24: Urine Color Yellow 02/09/24: Urine Appearance Clear (Clear) 02/09/24: Urine pH 7.0 (4.5-7.5) 02/09/24: Ur Specific [place] 1.014 (1.000-1.030) 02/09/24 21: Urine Protein Negative (Negative) 02/09/24: Urine Glucose (UA) Negative (Negative) 02/09/24: Urine Ketones Negative (Negative) 02/09/24: Urine Blood Trace (Negative) H 02/09/24 21: Urine Nitrite Negative (Negative) 02/09/24 21: Urine Bilirubin Negative (Negative) 02/09/24 21: Urine Urobilinogen Negative (Negative) 02/09/24: Ur Leukocyte Esterase 2+ (Negative) H 02/09/24 21: Urine WBC (Auto) 11-20 /hpf (0-5) H 02/09/24 21: Urine RBC (Auto) 0-2 /hpf (0-2) 02/09/24 21:33 U Hyaline Cast (Auto) 0-2 /lpf (0-2) 02/09/24 21:33 U Epithel Cells (Auto) 0-2 /hpf (0-2) 02/09/24 21:33 Urine Bacteria (Auto) None Seen (None Seen) 02/09/24 21:33 Adenovirus (PCR) Not Detected (NotDetected) 02/09/24 21:26 B. pertussis DNA (PCR) Not Detected (NotDetected) 02/09/24 21:26 B.parapertussis DNA PCR Not Detected (NotDetected) 02/09/24 21:26 C. pneumoniae DNA (PCR) Not Detected (NotDetected) 02/09/24 21:26 Coronavirus OC43 (PCR) Not Detected (NotDetected) 02/09/24 21:26 Coronavirus HKU1 (PCR) Not Detected (NotDetected) 02/09/24 21:26 Coronavirus 229E (PCR) Not Detected (NotDetected) 02/09/24 21:26 SARS-CoV-2 (PCR) Not Detected (NotDetected) 02/09/24 21:26 Coronavirus NL63 (PCR) Not Detected (NotDetected) 02/09/24 21:26 Human Metapneumovir PCR Not Detected (NotDetected) 02/09/24 21:26 Influenza Type A (PCR) Not Detected (NotDetected) 02/09/24 21:26 Influenza Type B (PCR) Not Detected (NotDetected) 02/09/24 21:26 M. pneumoniae (PCR) Not Detected (NotDetected) 02/09/24 21:26 Parainfluenza 1 (PCR) Not Detected (NotDetected) 02/09/24 21:26 Parainfluenza 2 (PCR) Not Detected (NotDetected) 02/09/24 21:26 Parainfluenza 3 (PCR) Not Detected (NotDetected) 02/09/24 21:26 Parainfluenza 4 (PCR) Not Detected (NotDetected) 02/09/24 21:26 RSV (PCR) Not Detected (NotDetected) 02/09/24 21:26 Entero/Rhino (PCR) Not Detected (NotDetected) 02/09/24 21:26 Group A Strep (PCR) DETECTED (NotDetected) A 02/09/24 22:56 Impressions Abdomen/Pelvis CT 02/09/24 21:15 Exam(s): CT ABDOMEN + PELVIS With Contrast IV Amt: OPTIRAY 320 93ML EXAM: CT Abdomen and Pelvis With Intravenous Contrast CLINICAL HISTORY: Reason for exam: abdomen pain, RLQ. TECHNIQUE: Axial computed tomography images of the abdomen and pelvis with intravenous contrast. CTDI is 26.53 mGy and DLP is 1315.35 mGy-cm. Automated exposure control was utilized for the study. A dose lowering technique was utilized adhering to the principles of ALARA. CONTRAST: Patient received OPTIRAY 320 93ML of IV contrast COMPARISON: No relevant prior studies available. FINDINGS: Lung bases: Unremarkable. No mass. No consolidation. ABDOMEN: Liver: Fatty infiltration of liver. Gallbladder and bile ducts: Unremarkable. No calcified stones. No ductal dilation. Pancreas: Unremarkable. No mass. No ductal dilation. Spleen: Unremarkable. No splenomegaly. Adrenals: Unremarkable. No mass. Kidneys and ureters: Unremarkable. No solid mass. No hydronephrosis. Stomach and bowel: Prominent though not pathologically enlarged loops of small bowel within the left lower quadrant with subtle mural hyperemia. Findings may represent enteritis in the appropriate clinical setting. Spleen is unremarkable. Remaining solid abdominal organs are within normal limits. PELVIS: Appendix: No findings to suggest acute appendicitis. Bladder: Unremarkable. No mass. Reproductive: Unremarkable as visualized. ABDOMEN and PELVIS: Intraperitoneal space: Unremarkable. No free air. No significant fluid collection. Bones/joints: No acute fracture. No dislocation. Soft tissues: Unremarkable. Vasculature: Unremarkable. No abdominal aortic aneurysm. Lymph nodes: Unremarkable. No enlarged lymph nodes. IMPRESSION: Findings suggestive of small bowel enteritis. Electronically signed by: Greg Thrasher MD 02/09/24 22:27 PM ECG Additional Comments: ECG. Normal sinus rhythm rate of 98. Possible left atrial enlargement Code Status & VTE Plan VTE Prophylaxis Plan VTE Prophylaxis will be ordered: Yes
[2024-02-10] MEDS ORDERED: NITROGLYCERIN SL 0.4 MG/TAB TAB SL PRN (02:02)
[2024-02-10] MEDS: MoRPHine SULFATE 4 MG/ML 1 ML CARP\\VIAL IV PRN (02:23)
[2024-02-10] MEDS: SODIUM CHLORIDE 0.9% 1,000 ML IV SCH (02:33)
[2024-02-10] MEDS: rOPINIRole HCL 0.25 MG TABLET PO STA (02:40)
[2024-02-10] MEDS: ACETAMINOPHEN 325 MG TAB PO PRN (05:30)
[2024-02-10 06:20] LABS: Basophils # (auto) 0.05 K/uL (0.00-0.20); Basophils % (auto) 0.3 %; Hematocrit (blood only) 38.2 % (37.0-47.0); Hemoglobin 12.9 g/dl (12.0-16.0); Immature Granulocytes # (auto) 0.11 K/uL (0.01-0.20); Immature Granulocytes % (auto) 0.7 %; Lymphocytes # (auto) 1.27 K/uL (1.20-3.40); Lymphocytes % (auto) 8.2 %; Mean Corpuscular Hemoglobin 31.6 pg (25.0-34.0); Mean Corpuscular Hgb Conc 33.8 g/dL (32.0-36.0); Mean Corpuscular Volume 93.6 fL (80.0-100.0); Mean Platelet Volume 9.4 fL (9.4-12.4); Monocytes # (auto) 1.01 K/uL (0.11-0.59); Monocytes % (auto) 6.5 %; Neutrophils # (auto) 13.12 K/uL (1.40-6.50); Neutrophils % (auto) 84.3 %; Platelet Count 204 K/uL (130-400); RDW Coefficient of Variation 13.1 % (11.5-14.5); RDW Standard Deviation 44.9 fL (36.4-46.3); Red Blood Count 4.08 M/uL (4.20-5.40); White Blood Count 15.56 K/ul (4.8-10.8)
[2024-02-10] MEDS: LEVOTHYROXINE SODIUM 88 MCG TABLET PO SCH (06:31)
[2024-02-10] MEDS: CHLORASEPTIC (PHENOL) 1.4% SOLN 180 ML BTL MT PRN (06:32)
[2024-02-10 06:53] LABS: BUN Creatinine Ratio 11.4 (10-20); Calcium 8.5 mg/dl (8.6-10.3); Est GFR (African American) 106.9 ml/min; Est GFR (Non-African American) 92.2 ml/min; Magnesium 2.1 mg/dl (1.7-2.4); Potassium 3.8 mmol/L (3.5-5.1)
[2024-02-10 07:01] LABS: Troponin I High Sensitivity 5.2 pg/ml (0-14)
--- NOTE | 2024-02-10 07:27 | XRay Report ---
XR chest 1V portable CLINICAL HISTORY: Sepsis. COMPARISON STUDY: Chest radiograph April 15, 2015. FINDINGS: Lung volumes are normal. There is no consolidation to suggest pneumonia. Minimal left basil ar opacity represents atelectasis. There is no pneumothorax or pleural effusion. Cardiac size is norm al. Mediastinal contours are normal. There is no evidence for pulmonary edema. IMPRESSION: No acute cardiopulmonary findings. ACT 112: Negative or not required by law. Electronically signed by: Rashard Ceron M.D. 02/10/2024 7:25 AM
[2024-02-10] MEDS: TRIAMCINOLONE ACET 0.1% CR 15 GM TUBE TOP SCH (08:24)
[2024-02-10] MEDS: ENOXAPARIN INJ 40 MG/0.4 ML SYR SQ SCH (08:24)
[2024-02-10] MEDS: CALCIUM 600MG + VIT D 400 IU TAB PO SCH (08:25)
[2024-02-10] MEDS: NIACIN 500 MG TAB PO SCH (08:25)
[2024-02-10] MEDS: MULTIVITAMIN TAB PO SCH (08:25)
[2024-02-10] MEDS: ATORVASTATIN 40 MG TAB PO SCH (08:25)
--- NOTE | 2024-02-10 08:32 | Electrocardiogram Report ---
Test Reason : Blood Pressure : / mmHG Vent. Rate : 098 BPM Atrial Rate : 098 BPM P-R Int : 134 ms QRS Dur : 078 ms QT Int : 328 ms P-R-T Axes : 042 004 024 degrees QTc Int : 418 ms Normal sinus rhythm Possible Left atrial enlargement Borderline ECG When compared with ECG of 09-JUN-2020 11:27, Vent. rate has increased BY 36 BPM Confirmed by Igor Araujo ([id number]) on 02/10/2024 8:32:23 AM Referred By: REFERRED SELF Confirmed By:Paul Araujo
[2024-02-10] MEDS: metroNIDAZOLE 500 MG/100 ML BAG IV SCH (09:20)
[2024-02-10] MEDS: MoRPHine SULFATE 2 MG/ML CARP IV PRN (11:47)
[2024-02-10] MEDS ORDERED: HYDROmorphone INJ 0.5 MG/0.5 ML SYR IV PRN (12:34)
--- NOTE | 2024-02-10 15:10 | Electrocardiogram Report ---
Test Reason : Blood Pressure : / mmHG Vent. Rate : 087 BPM Atrial Rate : 087 BPM P-R Int : 138 ms QRS Dur : 086 ms QT Int : 350 ms P-R-T Axes : 052 010 027 degrees QTc Int : 421 ms Normal sinus rhythm Normal ECG When compared with ECG of 09-FEB-2024 21:27, No significant change was found Confirmed by Igor Araujo ([id number]) on 02/10/2024 3:10:25 PM Referred By: REFERRED SELF Confirmed By:Paul Araujo
--- NOTE | 2024-02-10 16:35 | Communication Note ---
Date of Service: February 10, 2024 Patient seen and examined at bedside. She reports ongoing fever, sore throat, abdomen pain and nausea. On physical examination: Constitutional: Appears tired, alert oriented x 3. Respiratory: normal respiratory effort, lungs clear to auscultation, no wheeze, rales, rhonchi. Normal insp/exp effort, no accessory muscle use Cardiovascular: RRR, no murmur, no edema Vessels: no JVD or carotid bruit Chest: normal inspection of chest Abdomen: tenderness in right lower quadrant Musculoskeletal: no cyanosis or clubbing, extremities motor strength 5/5 Skin: no rashes, warm and dry normal turgor Neurologic: PERRL, EOMI, accommodation nl, no face palsy, no dysarthria CN's II- XI intact bilaterally and moves all extremities Psychiatric: A+Ox3, euthymic affect Assessment/plan Fever, Group A strep- Continue on ceftriaxone. Will follow-up on blood culture and urine culture Enteritis-Supportive care with IV fluids, pain control, ceftriaxone/Flagyl. Will continue home medications
[2024-02-10] MEDS: HYDROmorphone INJ 0.5 MG/0.5 ML SYR IV PRN (17:20)
[2024-02-10] MEDS: ACETAMINOPHEN 1,000 MG/100 ML VIAL IV PRN (20:26)
[2024-02-10] MEDS: valACYclovir HCL 500 MG TABLET PO SCH (20:30)
[2024-02-10] MEDS: rOPINIRole HCL 0.25 MG TABLET PO SCH (20:32)
[2024-02-10] MEDS: ESCITALOPRAM OXALATE 10 MG TAB PO SCH (20:32)
[2024-02-10] MEDS: cefTRIAXone SODIUM 2,000 MG/50 ML BAG IV SCH (20:33)
[2024-02-10] MEDS ORDERED: methylPREDNISolone 125 MG/2 ML VIAL IV STA (21:22)
[2024-02-10] MEDS: FAMOTIDINE 20MG IV PUSH 20 MG/5 ML SYR IV STA (21:37)
[2024-02-10] MEDS: diphenhydrAMINE 50 MG/ML VIAL IV STA (21:37)
[2024-02-10] MEDS: methylPREDNISolone 60 MG in SYRINGE 0 ML IV ONE (21:37)
[2024-02-11 06:46] LABS: Hematocrit (blood only) 34.4 % (37.0-47.0); Hemoglobin 11.7 g/dl (12.0-16.0); Mean Corpuscular Volume 91.2 fL (80.0-100.0); Mean Platelet Volume 9.4 fL (9.4-12.4); Platelet Count 200 K/uL (130-400); RDW Coefficient of Variation 12.9 % (11.5-14.5); RDW Standard Deviation 43.3 fL (36.4-46.3); Red Blood Count 3.77 M/uL (4.20-5.40); White Blood Count 14.07 K/ul (4.8-10.8)
[2024-02-11 07:16] LABS: Basophils # (auto) 0.03 K/uL (0.00-0.20); Basophils % (auto) 0.2 %; Immature Granulocytes % (auto) 0.7 %; Lymphocytes # (auto) 0.87 K/uL (1.20-3.40); Lymphocytes % (auto) 6.2 %; Monocytes # (auto) 0.25 K/uL (0.11-0.59); Monocytes % (auto) 1.8 %; Neutrophils # (auto) 12.82 K/uL (1.40-6.50); Neutrophils % (auto) 91.1 %
[2024-02-11 08:13] LABS: Albumin Globulin Ratio 1.3 (0.9-2); Albumin Level 3.7 gm/dl (3.4-5.0); BUN Creatinine Ratio 16.1 (10-20); Bilirubin,Total 0.2 mg/dl (0.2-1.0); Calcium 8.3 mg/dl (8.6-10.3); Creatinine Clr Calc Pharmacy 105.7 ml/min; Est GFR (Non-African American) 99.2 ml/min; Globulin 2.9 gm/dl (2.5-4.0); Potassium 3.4 mmol/L (3.5-5.1); Total Protein 6.6 gm/dl (6.0-8.3)
--- NOTE | 2024-02-11 09:14 | Electrocardiogram Report ---
Test Reason : Blood Pressure : / mmHG Vent. Rate : 065 BPM Atrial Rate : 065 BPM P-R Int : 126 ms QRS Dur : 088 ms QT Int : 434 ms P-R-T Axes : 041 016 021 degrees QTc Int : 451 ms Normal sinus rhythm Normal ECG When compared with ECG of 10-FEB-2024 05:39, No significant change was found Confirmed by Igor Araujo ([id number]) on 02/11/2024 9:14:20 AM Referred By: REFERRED SELF Confirmed By:Paul Araujo
[2024-02-11] MEDS: diphenhydrAMINE Capsule 25 MG CAP PO SCH (09:19)
[2024-02-11] MEDS: CLINDAMYCIN/D5W 300 MG/50 ML BAG IV SCH (09:59)
[2024-02-11] MEDS: FAMOTIDINE 20 MG TAB PO SCH (09:59)
[2024-02-11] MEDS: PIPERACILLIN/TAZOBACTAM 4.5 GM in DEXTROSE 5% MINI-B 100 ML IV SCH (10:16)
[2024-02-11] MEDS: PIPER/TAZO 4.5g in D5W MINI-B 100 ML IV STA (10:17)
[2024-02-11] MEDS: CIPROFLOXACIN / D5W 400 MG/200 ML BAG IV SCH (13:17)
--- NOTE | 2024-02-11 14:36 | Hospitalist Progress Note ---
Date of Service February 11, 2024 Assessment & Plan (1) Strep throat: Plan: 63-year-old female with past med history significant for high triglycerides, hypothyroidism, obstructive sleep apnea, chronic rhinitis, GERD, osteoarthritis, migraine, general anxiety disorder presents with fevers, right lower quadrant abdominal pain and sore throat and chest tightness. Strep throat UTI ruled out Patient presented with fever and sore throat. Patient presented with fever and sore throat. Leukocytosis present Blood culture no growth till date Urine cultureno growth Patient had hives and itching after getting ceftriaxone. Antibiotics switched to clindamycin. Appreciate infectious disease input. Small bowel enteritis Patient also presented with abdominal pain on right lower quadrant CT abdomen pelvis shows findings suggestive of small bowel enteritis Lactate down trended Ciprofloxacin added along with clindamycin. QTc within normal limits Full liquid diet; advance as tolerated Chest tightness ACS ruled out EKG shows normal sinus rhythm. QTc 451 Echocardiogram shows EF of 65 to 70% with grade 1 diastolic dysfunction. Monitoring telemetry EMILIE on cpap High triglycerides on statin, continue EDSON on lexapro, continue restless legs on ropinirole, continue Hypothyroidism on Synthroid, continue DVt px Lovenox Disposition med/tele Full code. Time spent evaluating patient, direct bedside care, chart review, placing orders, interpretation of diagnostic studies, discussion with consultants, patient, and family members, as well as other required patient management activities is to 50 minutes Please note the above document was generated using voice recognition software. It may contain grammatical, syntax or spelling errors. Any formal questions or concerns about the content, text or information contained within the body of this dictation should be directly addressed to the provider for clarification Admission and Anticipated Discharge Date Admission Date: February 10, 2024 Subjective Patient seen and examined at bedside. She reports nausea and vomiting has slightly improved Abdomen pain has decreased overall as well Overnight, patient had hives after administration of ceftriaxone. Antibiotic changed to clindamycin and ciprofloxacin. Review of Systems Review of Systems: All systems reviewed & are unremarkable except as noted in Subjective Physical Exam Physical Exam: General- Not in distress Head- atraumatic Eyes- PERRL. ENT- oropharynx clear Neck- supple, no JVD. Lungs- clear to auscultation no wheezing or crackles. Heart- regular rate and rhythm; no murmur, no gallop. Abdomen- Slight tenderness in right lower quadrant. Extremities- no pretibial edema, no erythema seen. Neuro- alert, oriented PERRL,no facial palsy; no dysarthria; moves extremities. Results & Data Results & Data Vital Signs (Past 12 Hours) Vital Signs Temp Pulse Pulse Resp BP BP Pulse Ox 02/11/24 11:06 36.6 C 76 19 143/75 H 94 02/11/24 08:00 66 02/11/24 07:35 36.5 C 69 19 129/77 93 02/11/24 03:57 02/11/24 03:33 36.5 C 71 17 113/70 92 O2 Del Method 02/11/24 11:06 Room Air 02/11/24 08:00 02/11/24 07:35 Room Air 02/11/24 03:57 Room Air 02/11/24 03:33 CPAP
[2024-02-11] MEDS: POTASSIUM CHLORIDE / WTR 10 MEQ/100 ML PLCT IV SCH (17:21)
[2024-02-11 21:29] LABS: Adenovirus F 40/41 PCR Not Detected (NotDetected); Astrovirus PCR Not Detected (NotDetected); Campylobacter PCR Not Detected (NotDetected); Cryptosporidium PCR Not Detected (NotDetected); Cyclospora cayetanensis PCR Not Detected (NotDetected); Entamoeba histolytica PCR Not Detected (NotDetected); Enteroaggregative E.coli(EAEC) Not Detected (NotDetected); Enteropathogenic E.coli (EPEC) Not Detected (NotDetected); Enterotoxigenic E.coli (ETEC) Not Detected (NotDetected); Giardia lamblia PCR Not Detected (NotDetected); Norovirus GI/GII PCR Not Detected (NotDetected); Plesiomonas shigelloides PCR Not Detected (NotDetected); Rotavirus A PCR Not Detected (NotDetected); Salmonella PCR Not Detected (NotDetected); Sapovirus PCR Not Detected (NotDetected); Shiga-like Toxin E.coli (STEC) Not Detected (NotDetected); Shigella/Enteroinvasive E.coli Not Detected (NotDetected); Vibrio cholerae PCR Not Detected (NotDetected); Vibrio species PCR Not Detected (NotDetected); Yersinia enterocolitica PCR Not Detected (NotDetected)
[2024-02-12] MEDS: ZOLPIDEM TARTRATE 5 MG TAB PO STA (02:34)
[2024-02-12 06:26] LABS: Basophils # (auto) 0.04 K/uL (0.00-0.20); Basophils % (auto) 0.5 %; Eosinophils # (auto) 0.05 K/uL (0.00-0.50); Eosinophils % (auto) 0.6 %; Hematocrit (blood only) 33.1 % (37.0-47.0); Hemoglobin 11.2 g/dl (12.0-16.0); Immature Granulocytes # (auto) 0.05 K/uL (0.01-0.20); Immature Granulocytes % (auto) 0.6 %; Lymphocytes # (auto) 2.46 K/uL (1.20-3.40); Lymphocytes % (auto) 27.7 %; Mean Corpuscular Hemoglobin 31.3 pg (25.0-34.0); Mean Corpuscular Hgb Conc 33.8 g/dL (32.0-36.0); Mean Corpuscular Volume 92.5 fL (80.0-100.0); Mean Platelet Volume 9.7 fL (9.4-12.4); Monocytes # (auto) 0.61 K/uL (0.11-0.59); Monocytes % (auto) 6.9 %; Neutrophils # (auto) 5.67 K/uL (1.40-6.50); Neutrophils % (auto) 63.7 %; Platelet Count 219 K/uL (130-400); RDW Coefficient of Variation 13.2 % (11.5-14.5); RDW Standard Deviation 44.9 fL (36.4-46.3); Red Blood Count 3.58 M/uL (4.20-5.40); White Blood Count 8.88 K/ul (4.8-10.8)
[2024-02-12 06:40] LABS: Albumin Globulin Ratio 1.3 (0.9-2); Albumin Level 3.6 gm/dl (3.4-5.0); BUN Creatinine Ratio 15.4 (10-20); Bilirubin,Total 0.2 mg/dl (0.2-1.0); Calcium 8.3 mg/dl (8.6-10.3); Creatinine Clr Calc Pharmacy 91.4 ml/min; Est GFR (African American) 109.5 ml/min; Est GFR (Non-African American) 94.5 ml/min; Globulin 2.8 gm/dl (2.5-4.0); Potassium 3.3 mmol/L (3.5-5.1); Total Protein 6.4 gm/dl (6.0-8.3)
[2024-02-12] MEDS: POTASSIUM CHLORIDE CRTAB 20 MEQ TABCR PO STA (08:32)
--- NOTE | 2024-02-12 11:56 | Electrocardiogram Report ---
Test Reason : Blood Pressure : / mmHG Vent. Rate : 063 BPM Atrial Rate : 063 BPM P-R Int : 120 ms QRS Dur : 078 ms QT Int : 444 ms P-R-T Axes : 051 030 033 degrees QTc Int : 454 ms Poor data quality, interpretation may be adversely affected Normal sinus rhythm Normal ECG When compared with ECG of 11-FEB-2024 06:00, No significant change was found Confirmed by Igor Araujo ([id number]) on 02/12/2024 11:55:43 AM Referred By: REFERRED SELF Confirmed By:Paul Araujo
--- NOTE | 2024-02-12 18:58 | Hospitalist Progress Note ---
Date of Service February 12, 2024 Assessment & Plan (1) Strep throat: Plan: 63-year-old female with past med history significant for high triglycerides, hypothyroidism, obstructive sleep apnea, chronic rhinitis, GERD, osteoarthritis, migraine, general anxiety disorder presents with fevers, right lower quadrant abdominal pain and sore throat and chest tightness. Sepsis, POA Strep throat UTI ruled out Patient presented with fever and sore throat. Was also tachycardic with leukocytosis. Strep + on biofire Lactate of 2.4, downtrended to normal after fluid resuscitation Blood culture NGTD UA was suggestive of infection, Urine cultureNGTD Was started on Rocephin Patient had hives and itching after getting ceftriaxone. Antibiotics switched to clindamycin. ID was consulted, appreciate recs Small bowel enteritis Patient also presented with abdominal pain on right lower quadrant CT abdomen pelvis shows findings suggestive of small bowel enteritis Lactate elevated down trended as above Possibly abdominal pain related to strep infection vs. enteritis Ciprofloxacin added for GI treatment along with clindamycin. QTc within normal limits Advance diet as tolerated ID was consulted as above, appreciate recs Chest tightness ACS ruled out EKG shows normal sinus rhythm. QTc 451 Echocardiogram shows EF of 65 to 70% with grade 1 diastolic dysfunction. Monitoring on telemetry EMILIE on cpap, continue High triglycerides on statin, continue EDSON on lexapro, continue restless legs on ropinirole, continue Hypothyroidism on Synthroid, continue DVt px: Lovenox Dispo: PT/OT ordered for [facility] Admission and Anticipated Discharge Date Admission Date: February 10, 2024 Subjective Pt was seen with at bedside. Was eating solid food, notes improvement in sore throat, N/V. Review of Systems Review of Systems: All systems reviewed & are unremarkable except as noted in Subjective Physical Exam Physical Exam: General: Alert, oriented. No acute distress Skin: No noted rashes or bruises Psych: Appropriate mood and affect Neuro: No gross deficits HEENT: NC/AT Chest: Nontender to palpation. CV: RRR Resp: Breath sounds clear bilaterally, no increased effort of breathing. Abdomen: Soft, nontender, nondistended. Extremities: No edema in lower extremities bilaterally. Results & Data Results & Data Vital Signs (Past 12 Hours) Vital Signs Temp Pulse Pulse Resp BP BP Pulse Ox 02/12/24 07:35 36.7 C 68 19 132/83 96 02/12/24 03:08 36.5 C 65 18 145/86 H 96 02/12/24 02:00 02/12/24 00:12 77 02/11/24 23:20 36.5 C 71 18 138/66 96 02/11/24 20:28 36.7 C 71 20 151/81 H 96 Pulse Ox O2 Del Method O2 Del Method 02/12/24 07:35 Room Air 02/12/24 03:08 CPAP 02/12/24 02:00 93 Room Air 02/12/24 00:12 02/11/24 23:20 CPAP 02/11/24 20:28 Room Air
[2024-02-12] MEDS: SIMETHICONE 80 MG CHEW PO ONE (21:57)
[2024-02-12] MEDS: LORATADINE 10 MG TAB PO ONE (22:33)
[2024-02-13 06:27] LABS: Basophils # (auto) 0.05 K/uL (0.00-0.20); Basophils % (auto) 0.7 %; Eosinophils # (auto) 0.07 K/uL (0.00-0.50); Eosinophils % (auto) 0.9 %; Hematocrit (blood only) 35.6 % (37.0-47.0); Hemoglobin 12.2 g/dl (12.0-16.0); Immature Granulocytes # (auto) 0.05 K/uL (0.01-0.20); Immature Granulocytes % (auto) 0.7 %; Lymphocytes # (auto) 2.42 K/uL (1.20-3.40); Lymphocytes % (auto) 31.9 %; Mean Corpuscular Hemoglobin 30.7 pg (25.0-34.0); Mean Corpuscular Hgb Conc 34.3 g/dL (32.0-36.0); Mean Corpuscular Volume 89.4 fL (80.0-100.0); Mean Platelet Volume 9.3 fL (9.4-12.4); Monocytes # (auto) 0.61 K/uL (0.11-0.59); Neutrophils # (auto) 4.38 K/uL (1.40-6.50); Neutrophils % (auto) 57.8 %; Platelet Count 260 K/uL (130-400); RDW Coefficient of Variation 12.8 % (11.5-14.5); RDW Standard Deviation 42.4 fL (36.4-46.3); Red Blood Count 3.98 M/uL (4.20-5.40); White Blood Count 7.58 K/ul (4.8-10.8)
[2024-02-13 06:55] LABS: BUN Creatinine Ratio 18.4 (10-20); Calcium 8.7 mg/dl (8.6-10.3); Creatinine Clr Calc Pharmacy 77.8 ml/min; Est GFR (African American) 96.8 ml/min; Est GFR (Non-African American) 83.5 ml/min; Phosphorus 4.4 mg/dl (2.5-4.9); Potassium 3.4 mmol/L (3.5-5.1)
[2024-02-13] MEDS: POTASSIUM CHLORIDE CRTAB 20 MEQ TABCR PO STA (09:35)
--- NOTE | 2024-02-13 14:38 | Infectious Disease Consult ---
<Statement entered by Precious Bond MD - 02/14/24 14:19> I have discussed the patient's management with the medical trainee and agree with the note. Please refer to the documented findings and plan of care. The patient's service consisted of an evaluation. I have seen and evaluated the patient. Precious Bond MD Date of Service February 13, 2024 Telehealth Information I performed this visit using a real-time telehealth connection between my location and the patients location ([facility]). After connecting through interactive tele-video, patient was identified by name and date of and/or wristband check.Patient (or authorized healthcare brewery representative) was informed that this was a telemedicine visit and it was being conducted confidentially over secure lines. My office door was closed and no one else was present in the room with me.Patient (or authorized healthcare brewery representative) provided consent to proceed with the visit, expressed an understanding of privacy and security of the telemedicine visit, and gave permission to have a hospital brewery representative in the room in order to assist with the visit and to conduct portions of the visit, as needed. I informed the patient (or authorized healthcare brewery representative) that I reviewed their record and presented the opportunity for them to ask any questions regarding the visit today. The patient agreed to participate. Assessment & Plan (1) Strep throat: Plan: 63-year-old female with likely Streptococcus group a infection which can be the cause of the majority of her symptoms including the flushing/diarrhea. She did seem to have a return of her flushing after discontinuation of antibiotics which lowers suspicion for antibiotic cause however still easily possible. Stool testing for infectious causes of her diarrhea returned inconclusive, it is possibly sequela of her Streptococcus infection. Given this would treat for a total of 14 days which include the past 5 days and her current regimen of Cipro/clindamycin however do not feel strongly about treating for an unknown intra intestinal infectious cause. Would recommend transitioning to amoxicillin 500 p.o. three times daily for an additional 9 days given patient's significant improvement after 24 hours of further observation to ensure flushing/ rash does not recur. - Discontinue clindamycin, ciprofloxacin - initiate amoxicillin p.o. 500 mg three times daily for a total of 14 days, as above including days hospitalized as she was on appropriate therapy with end date approximately 02/22/24. Appreciate consultation, please do not hesitate to reach out for any further questions or concerns. Pedro Little MD PGY4 Infectious Disease History of Present Illness History of Present Illness 63-year-old female with a past medical history of EMILIE, initially presented with fevers, right lower quadrant abdominal pain, sore throat. Rapid strep returned positive. CT abdomen and pelvis with possible enteritis. Initially patient had T-max of 38.5, currently afebrile since admission. WBC initially 16, now normalized. Initiated on ceftriaxone from 02/08 to 02/09 which induced pruritus antibiotics were changed, ciprofloxacin from 02/10 to 02/11 in addition to clindamycin, currently day 5 of antibiotic therapy and currently on clindamycin. Blood cultures remain negative. patient states that she had flushing / pruritus with mild skin eruptions after completely finishing ceftriaxone bag, received steroid/Benadryl however rash did seem to return with most recently in the last 24 hours. Currently without a significant rash, has never had any allergies prior to hospitalization. Her sore throat has improved substantially, feels much better since being admitted to the hospital. Allergies Allergy/AdvReac Type Severity Reaction Status Date / Time No Known Allergies Allergy Unknown Verified 02/09/24 23:20 Home Medications Medication Instructions Recorded Confirmed Type atorvastatin 40 mg tablet 40 mg PO QAM 05/12/19 02/09/24 History escitalopram oxalate 10 mg tablet 10 mg PO HS 05/12/19 02/09/24 History levothyroxine 88 mcg capsule 88 mcg PO QAM 05/12/19 02/09/24 History multivitamin 1 tab PO QAM 05/12/19 02/09/24 History niacin 500 mg tablet 500 mg PO BID 05/12/19 02/09/24 History valacyclovir 500 mg tablet 500 mg PO HS 05/12/19 02/09/24 History omega 2-cax-rlm-fish oil 1,000 mg 1 cap PO BID 04/11/20 02/09/24 History (120 mg-180 mg) capsule (Fish Oil) triamcinolone acetonide 0.1 % 1 applic topical BID #453.6 grams 02/20/23 02/09/24 Rx topical cream calcium carbonate (Calcium 600) 600 mg PO DAILY 02/09/24 02/09/24 History ropinirole 0.25 mg tablet 0.5 mg PO HS 02/09/24 02/09/24 History Patient History Medical History Chondromalacia of left knee Hypothyroidism Cardiac murmur "SLIGHT" NO CARDS Hyperlipidemia Sleep apnea CPAP Surgical History S/P meniscectomy Operation Date: 06/14/20 08:20 Actual Procedures p Left Knee Arthroscopy, Partial Medial and Lateral Meniscectomy, Trochlear Chondroplasty(Left) - Amandeep Beck Surgeon Amandeep Beck There was grade 34 chondromalacia affecting the central portion of the deep flexion zone of the trochlea. The medial meniscus had a radially oriented tear involving the inner 10 to 20% of the posterior horn of the medial meniscus which was debrided using meniscal punch and motorized shaver. The lateral meniscus had a complex frayed tear involving the majority of the body of the lateral meniscus that was radially oriented. This was debrided using meniscal punches and a motorized shaver. The trochlea was treated with removal of unstable flaps and formal chondroplasty. Fusion of spine CERVICAL (GOOD ROM) H/O foot surgery LEFT (TENDON) History of esophagogastroduodenoscopy (EGD) History of colonoscopy History of tooth extraction Family History Mother Family history of diabetes mellitus Other No family history of adverse response to anesthesia Social History Smoking Status: Never smoker Second Hand Exposure: No; Do You Dip or Chew Tobacco: No; Hx Alcohol Use: Yes Alcohol type: wine Hx Substance Use: No Preferred Language: Italian Communication Ability: Effective Roll Picker Required: No Beliefs That Will Affect Care: None Current Living Situation: Spouse Feels Safe at Home: Yes Safety Concerns: Feels Safe At This Time Assistive Devices: None Results & Data Vital Signs (Past 12 Hours) Vital Signs Temp Pulse Resp BP Pulse Ox O2 Del Method 02/13/24 11:02 36.7 C 71 17 135/82 93 Room Air 02/13/24 07:25 36.6 C 68 18 109/73 96 Room Air 02/13/24 04:09 36.9 C 71 19 119/77 94 BiPAP Laboratory Results 02/13/24 02/12/24 05:57 15:15 WBC 7.58 RBC 3.98 L Hgb 12.2 Hct 35.6 L MCV 89.4 MCH 30.7 MCHC 34.3 RDW Std Deviation 42.4 RDW Coeff of Charlie 12.8 Plt Count 260 MPV 9.3 L Immature Gran % (Auto) 0.7 Neut % (Auto) 57.8 Lymph % (Auto) 31.9 [place] % (Auto) 8.0 Eos % (Auto) 0.9 Baso % (Auto) 0.7 Neut # (Auto) 4.38 Lymph # (Auto) 2.42 [place] # (Auto) 0.61 H Eos # (Auto) 0.07 Baso # (Auto) 0.05 Immature Gran # (Auto) 0.05 Sodium 138 Potassium 3.4 L Chloride 104 Carbon Dioxide 25 Anion Gap 9 BUN 14 Creatinine 0.76 Est Cr Clr Drug Dosing 77.8 Est GFR ( Amer) 96.8 Est GFR (Non-Af Amer) 83.5 BUN/Creatinine Ratio 18.4 Glucose 103 H Calcium 8.7 Phosphorus 4.4 Magnesium 2.0 Stl C. diff Tox B Gene Negative Cdiff Gene
--- NOTE | 2024-02-13 16:56 | Hospitalist Progress Note ---
Date of Service February 13, 2024 Assessment & Plan (1) Strep throat: Plan: 63-year-old female with past med history significant for high triglycerides, hypothyroidism, obstructive sleep apnea, chronic rhinitis, GERD, osteoarthritis, migraine, general anxiety disorder presents with fevers, right lower quadrant abdominal pain and sore throat and chest tightness. Sepsis, POA Strep throat UTI ruled out Patient presented with fever and sore throat. Was also tachycardic with leukocytosis. Strep + on biofire Lactate of 2.4, downtrended to normal after fluid resuscitation Blood culture NGTD UA was suggestive of infection, Urine cultureNGTD Was started on Rocephin Patient had hives and itching after getting ceftriaxone. Antibiotics switched to clindamycin. ID was consulted, appreciate recs -d/c clinda, start amoxicillin 500mg TID Small bowel enteritis Patient also presented with abdominal pain on right lower quadrant CT abdomen pelvis shows findings suggestive of small bowel enteritis Lactate elevated down trended as above Possibly abdominal pain related to strep infection vs. enteritis Ciprofloxacin added for GI treatment along with clindamycin. QTc within normal limits Advance diet as tolerated ID was consulted as above, appreciate recs -d/c cipro and monitor off Chest tightness ACS ruled out EKG shows normal sinus rhythm. QTc 451 Echocardiogram shows EF of 65 to 70% with grade 1 diastolic dysfunction. Monitoring on telemetry EMILIE on cpap, continue High triglycerides on statin, continue EDSON on lexapro, continue restless legs on ropinirole, continue Hypothyroidism on Synthroid, continue DVt px: Lovenox Dispo: PT/OT ordered for [facility] Admission and Anticipated Discharge Date Admission Date: February 10, 2024 Subjective pt was seen sitting up in bed. Notes she had the rash overnight and into the morning. States the rash root her ears, can feel it coming on. Otherwise noting improvement in her symptoms. Review of Systems Review of Systems: All systems reviewed & are unremarkable except as noted in Subjective Physical Exam Physical Exam: General: Alert, oriented. No acute distress Skin: No noted rashes or bruises Psych: Appropriate mood and affect Neuro: No gross deficits HEENT: NC/AT Chest: Nontender to palpation. CV: RRR Resp: Breath sounds clear bilaterally, no increased effort of breathing. Abdomen: Soft, nontender, nondistended. Extremities: No edema in lower extremities bilaterally. Results & Data Results & Data Vital Signs (Past 12 Hours) Vital Signs Temp Pulse Resp BP Pulse Ox O2 Del Method 02/13/24 15:17 36.7 C 77 17 127/78 93 Room Air 02/13/24 11:02 36.7 C 71 17 135/82 93 Room Air 02/13/24 07:25 36.6 C 68 18 109/73 96 Room Air
[2024-02-13] MEDS: AMOXICILLIN 500 MG CAP PO SCH (20:34)
[2024-02-13] MEDS: POTASSIUM CHLORIDE CRTAB 20 MEQ TABCR PO SCH (20:36)
[2024-02-14 06:49] LABS: Basophils # (auto) 0.04 K/uL (0.00-0.20); Basophils % (auto) 0.6 %; Eosinophils # (auto) 0.06 K/uL (0.00-0.50); Eosinophils % (auto) 0.9 %; Hematocrit (blood only) 36.9 % (37.0-47.0); Hemoglobin 12.8 g/dl (12.0-16.0); Immature Granulocytes # (auto) 0.04 K/uL (0.01-0.20); Immature Granulocytes % (auto) 0.6 %; Lymphocytes # (auto) 2.66 K/uL (1.20-3.40); Lymphocytes % (auto) 38.2 %; Mean Corpuscular Hemoglobin 31.4 pg (25.0-34.0); Mean Corpuscular Hgb Conc 34.7 g/dL (32.0-36.0); Mean Corpuscular Volume 90.7 fL (80.0-100.0); Mean Platelet Volume 9.2 fL (9.4-12.4); Monocytes # (auto) 0.64 K/uL (0.11-0.59); Monocytes % (auto) 9.2 %; Neutrophils # (auto) 3.53 K/uL (1.40-6.50); Neutrophils % (auto) 50.5 %; Platelet Count 269 K/uL (130-400); RDW Standard Deviation 43.2 fL (36.4-46.3); Red Blood Count 4.07 M/uL (4.20-5.40); White Blood Count 6.97 K/ul (4.8-10.8)
[2024-02-14 07:12] LABS: BUN Creatinine Ratio 18.1 (10-20); Calcium 8.9 mg/dl (8.6-10.3); Creatinine Clr Calc Pharmacy 80.3 ml/min; Est GFR (African American) 103.3 ml/min; Est GFR (Non-African American) 89.1 ml/min; Magnesium 2.1 mg/dl (1.7-2.4); Phosphorus 4.4 mg/dl (2.5-4.9); Potassium 3.7 mmol/L (3.5-5.1)
--- NOTE | 2024-02-14 10:42 | Discharge Summary ---
Discharge Summary Date of Service February 14, 2024 Notes For Next Care Provider Please ensure resolution of symptoms after discharge Pt with episodes of flushing and maculopapular rash that root- on Niacin, pt advised to discontinue as likely cause. PCP followup for alternative. Medication Changes From Visit Amoxicillin 500mg TID x 11 more days (14 days total of abx rx per ID) DISCONTINUE NIACIN Admission HPI Per Admitting Provider 63-year-old female with past med history significant for high triglycerides, hypothyroidism, obstructive sleep apnea, chronic rhinitis, GERD, osteoarthritis, migraine, general anxiety disorder presents with fevers, right lower quadrant abdominal pain and sore throat and chest tightness. Patient states last night she developed fevers and chills also right lower quadrant abdominal pain and she thought she might having appendicitis. Today morning she also got sore throat and some chest tightness which prompted her to come to the ER. In ER she had temp spike. Strep came back positive. UA is positive. CT scan showing possible small bowel enteritis. Denies any diarrhea. Normal micturition. Denies blood in the stools or black stools. Denies hematuria. On and off shortness of breath. On and off chest tightness since last night. Has occasional cough. No runny nose. Has headache. Vision is okay. Past medical history. As mentioned above Past surgical history. Right carpal tunnel surgery. Colonoscopy and EGD with biopsy. Left foot tendon surgery. Knee arthroscopy left side. Social history. . No smoking. Alcohol rare. No drug use. Family history. Mother had diabetes. Obesity. Brother had high cholesterol. Father had Lewy body disease. Admission Exam Per Admitting Provider General- Not in distress Head- atraumatic Eyes- PERRL. ENT- oropharynx clear Neck- supple, no JVD. Lungs- clear to auscultation no wheezing or crackles. Heart- regular rate and rhythm; no murmur, no gallop. Abdomen- normal bowel sounds, soft, tenderness in RLQ, no rebound tenderness, no distension. Extremities- no pretibial edema, no erythema seen. Neuro- alert, oriented PERRL,no facial palsy; no dysarthria; moves extremities. Principal Dx & Hospital Course #1 = Principal Diagnosis (1) Strep throat: 63-year-old female with past med history significant for high triglycerides, hypothyroidism, obstructive sleep apnea, chronic rhinitis, GERD, osteoarthritis, migraine, general anxiety disorder presents with fevers, right lower quadrant abdominal pain and sore throat and chest tightness. Sepsis, POA Strep throat UTI ruled out Patient presented with fever and sore throat. Was also tachycardic with leukocytosis. Strep + on biofire Lactate of 2.4, downtrended to normal after fluid resuscitation Blood culture NGTD UA was suggestive of infection, Urine cultureNGTD Was started on Rocephin Patient had flushing, maculopapular rash and itching after getting ceftriaxone. Antibiotics switched to clindamycin. However rash and itching persisted. ID was consulted, appreciate recs -d/c clinda, start amoxicillin 500mg TID to complete total 14 day course of antibiotics Rash and flushing likely the result of pt's use of niacin, which was discontinued. PCP followup for further rash evaluation and discussion of alternative for niacin. Also please ensure resolution of symptoms. Small bowel enteritis Patient also presented with abdominal pain on right lower quadrant CT abdomen pelvis shows findings suggestive of small bowel enteritis Lactate elevated down trended as above Possibly abdominal pain related to strep infection vs. enteritis Ciprofloxacin added for GI treatment along with clindamycin. QTc within normal limits Advance diet as tolerated Likely in setting of strep infection ID was consulted as above, appreciate recs -likely in setting of strep infection -d/c cipro and monitor off antibiotics Pt stable on discharge Chest tightness ACS ruled out EKG shows normal sinus rhythm. QTc 451 Echocardiogram shows EF of 65 to 70% with grade 1 diastolic dysfunction. Resolved on discharge EMILIE on cpap, continue High triglycerides on statin, continue Discontinued Niacin as above due to episodes of skin burning, flushing and rash PCP followup for further rash evaluation and discussion of alternative for niacin. Also please ensure resolution of symptoms. EDSON on lexapro, continue restless legs on ropinirole, continue Hypothyroidism on Synthroid, continue Discharge Exam General: Alert, oriented. No acute distress Skin: maculopapular eruption noted on anterior chest and back Psych: Appropriate mood and affect Neuro: No gross deficits HEENT: NC/AT Chest: Nontender to palpation. CV: RRR Resp: Breath sounds clear bilaterally, no increased effort of breathing. Abdomen: Soft, nontender, nondistended. Extremities: No edema in lower extremities bilaterally. Updated Medication List Medication Instructions Recorded Confirmed Type atorvastatin 40 mg tablet 40 mg PO QAM 05/12/19 02/09/24 History escitalopram oxalate 10 mg tablet 10 mg PO HS 05/12/19 02/09/24 History levothyroxine 88 mcg capsule 88 mcg PO QAM 05/12/19 02/09/24 History multivitamin 1 tab PO QAM 05/12/19 02/09/24 History valacyclovir 500 mg tablet 500 mg PO HS 05/12/19 02/09/24 History omega 8-pza-yna-fish oil 1,000 mg 1 cap PO BID 04/11/20 02/09/24 History (120 mg-180 mg) capsule (Fish Oil) triamcinolone acetonide 0.1 % 1 applic topical BID #453.6 grams 02/20/23 02/09/24 Rx topical cream calcium carbonate (Calcium 600) 600 mg PO DAILY 02/09/24 02/09/24 History ropinirole 0.25 mg tablet 0.5 mg PO HS 02/09/24 02/09/24 History amoxicillin 500 mg capsule 500 mg PO TID #33 caps 02/14/24 Rx Hospital Stay Data Consultations 02/10/24 00:07 ED Decision to Admit Stat 02/11/24 09:13 Consult Infectious Diseases Routine Diagnostic Imagining Performed 02/09/24 21:15 CT Abd and Pelvis [CT abd pelvis IV con only] Stat Abdomen/Pelvis CT 02/09/24 21:15 Exam(s): CT ABDOMEN + PELVIS With Contrast IV Amt: OPTIRAY 320 93ML EXAM: CT Abdomen and Pelvis With Intravenous Contrast CLINICAL HISTORY: Reason for exam: abdomen pain, RLQ. TECHNIQUE: Axial computed tomography images of the abdomen and pelvis with intravenous contrast. CTDI is 26.53 mGy and DLP is 1315.35 mGy-cm. Automated exposure control was utilized for the study. A dose lowering technique was utilized adhering to the principles of ALARA. CONTRAST: Patient received OPTIRAY 320 93ML of IV contrast COMPARISON: No relevant prior studies available. FINDINGS: Lung bases: Unremarkable. No mass. No consolidation. ABDOMEN: Liver: Fatty infiltration of liver. Gallbladder and bile ducts: Unremarkable. No calcified stones. No ductal dilation. Pancreas: Unremarkable. No mass. No ductal dilation. Spleen: Unremarkable. No splenomegaly. Adrenals: Unremarkable. No mass. Kidneys and ureters: Unremarkable. No solid mass. No hydronephrosis. Stomach and bowel: Prominent though not pathologically enlarged loops of small bowel within the left lower quadrant with subtle mural hyperemia. Findings may represent enteritis in the appropriate clinical setting. Spleen is unremarkable. Remaining solid abdominal organs are within normal limits. PELVIS: Appendix: No findings to suggest acute appendicitis. Bladder: Unremarkable. No mass. Reproductive: Unremarkable as visualized. ABDOMEN and PELVIS: Intraperitoneal space: Unremarkable. No free air. No significant fluid collection. Bones/joints: No acute fracture. No dislocation. Soft tissues: Unremarkable. Vasculature: Unremarkable. No abdominal aortic aneurysm. Lymph nodes: Unremarkable. No enlarged lymph nodes. IMPRESSION: Findings suggestive of small bowel enteritis. Electronically signed by: Greg Thrasher MD 02/09/24 22:27 PM Chest X-Ray 02/09/24 21:15 XR chest 1V portable CLINICAL HISTORY: Sepsis. COMPARISON STUDY: Chest radiograph April 15, 2015. FINDINGS: Lung volumes are normal. There is no consolidation to suggest pneumonia. Minimal left basilar opacity represents atelectasis. There is no pneumothorax or pleural effusion. Cardiac size is normal. Mediastinal contours are normal. There is no evidence for pulmonary edema. IMPRESSION: No acute cardiopulmonary findings. ACT 112: Negative or not required by law. Electronically signed by: Rashard Ceron M.D. 02/10/2024 7:25 AM Pending Results Patient Have Any Pending Studies at Discharge: No Discharge Instructions Given to Patient (Per Discharging Provider) Rosalie, You were admitted with a severe infection. You were seen by Infectious Disease and they would like you to continue with the amoxicillin 500mg three times a day for a total of 14 days of antibiotic treatment. We are discharging you home with 11 more days of treatment. Please take as prescribed until the course is finished. You also had episodes of rash and flushing that we believe is related to your use of niacin. We advise discontinuing this medication and following up with your primary care provider as scheduled for further discussion of alternatives. Please continue with your home atorvastatin. Again, please keep close follow up with your primary care provider after discharge. Please do not hesitate to come back to the emergency room if your symptoms worsen or return. It was a pleasure taking care of you while you were here. Total Time Total Time Spent Total Time Spent (In Minutes): 75
[2024-02-14] MEDS: hydrOXYzine HCl 25 MG TAB PO STA (11:05)
== END 2024-02-14 11:06 | disposition home or self-care (01) | DRG 153 ==
LOC: ED 20:52 → 4W 02-10 00:44 → SUATTDRO 02-10 00:44 → 4W 02-10 01:39 → 2N 02-14 03:38